=== PATIENT | male | born 1970 | race Caucasian/White ===

== ENCOUNTER 2019-11-22 22:16 | Emergency (ER) | payer OTHER ==
--- OUTSIDE RECORDS SUMMARY | 2019-11-22 22:17 | XMS REPORT ---
:1970 [facility] Address [address] [place] [address] Dr. Ignacio [address] [place] [id number] Care Team Providers Name Role Phone Unavailable Unavailable Unavailable Problems This patient has no known problems. Allergies, Adverse Reactions, Alerts This patient has no known allergies or adverse reactions. Medications This patient has no known medications.
[2019-11-22] MEDS ORDERED: NA CHLORIDE 0.9% 2,000 ML ONE (23:01)
[2019-11-22] MEDS ORDERED: ONDANSETRON 4 MG/2 ML VIAL ONE ×2 (23:02→23:32)
[2019-11-22 23:34] LABS: Blood Gas Oxyhemoglobin 87.1 % (94-97); Blood O2 Saturation 88.4 % (92-98.5)
[2019-11-22 23:44] LABS: Absolute Lymphocytes (CBC) 1.1 K/uL (0.7-4.9); Basophils % 0.4 % (0-1.3); Hematocrit 39.5 % (39.6-49.0); Lymphocytes % 9.5 % (15.3-44.8); MPV 8.7 fL (7.6-11.3)
[2019-11-22 23:55] LABS: Albumin 4.3 g/dL (3.4-5.0); Bilirubin Total 0.4 mg/dL (0.2-1.0); Protein, Total 8.5 g/dL (6.4-8.2)
[2019-11-23] MEDS ORDERED: INSULIN -REGULAR HUMAN 50 UNIT/0.5 ML ML ONE ×2 (00:02→03:57)
[2019-11-23] MEDS ORDERED: METOCLOPRAMIDE 10 MG/2mL INJ ONE (00:19)
[2019-11-23 00:32] LABS: Blood Morphology Comment NOT SEEN (NOT SEEN); Platelet Estimate ADEQ
[2019-11-23] MEDS ORDERED: NA CHLORIDE 0.9% 1,000 ML ONE (01:32)
[2019-11-23 02:22] LABS: Urine Blood 1+ (NEG); Urine Glucose 2+ (NEG); Urine Protein 2+ (NEG); Urine Specific Gravity 1.015 (1.005-1.030); Urine pH 5.5 (5.0-7.0)
[2019-11-23] MEDS ORDERED: PROMETHAZINE INJ 25 MG/ML AMP ONE (02:32)
--- NOTE | 2019-11-23 03:55 | ER ---
Nurse's Notes [facility] Name: Zaid Chiang Age: 49 yrs Sex: Male : 1970 Arrival Date: 11/22/2019 Time: 22:17 Bed 4 Private MD: Diagnosis: Hyperglycemia;Nausea and vomiting;Dehydration Presentation: 11/22 22:35 Presenting complaint: Patient states: he felt the same symptoms starting New Years day wh thinking it was just a hangover, it got better. Today around noon started to feel nauseated again and started vomiting. BS at home was 314, BS checked at ER 405. Transition of care: patient was not received from another setting of care. Onset of symptoms was November 22, 2019. Risk Assessment: Do you want to hurt yourself or someone else? Patient reports no desire to harm self or others. Initial Sepsis Screen: Does the patient meet any 2 criteria? No. Patient's initial sepsis screen is negative. Does the patient have a suspected source of infection? No. Patient's initial sepsis screen is negative. Care prior to arrival: None. 22:35 Method Of Arrival: Wheelchair 22:35 Acuity: KATHLEEN 3 Historical: - Allergies: 22:40 No Known Allergies; - Home Meds: 22:40 glimepiride 4 mg Oral tab 1 tab twice a day [Active]; lisinopril 5 mg Oral tab 1 tab wh twice a day [Active]; metformin 250 mg Oral tab 1 tab 2 times per day [Active]; gabapentin 100 mg oral cap 1 caps twice a day [Active]; - PMHx: 22:40 Diabetes - NIDDM; Hypertension; - PSHx: 22:40 Foot Surgery; - Immunization history:: Adult Immunizations up to date. - Social history:: Smoking status: Patient/guardian denies using tobacco. - Ebola Screening: : Patient negative for fever greater than or equal to 101.5 degrees Fahrenheit, and additional compatible Ebola Virus Disease symptoms Patient denies exposure to infectious person. Screenin:40 Abuse screen: Denies threats or abuse. Denies injuries from another. Nutritional screening: No deficits noted. Tuberculosis screening: No symptoms or risk factors identified. Fall Risk None identified. Assessment: 22:44 General: Appears in no apparent distress. Behavior is calm, cooperative, appropriate wh for age. Pain: Denies pain. Neuro: Level of Consciousness is awake, alert, obeys commands, Oriented to person, place, time, situation, Appropriate for age. Cardiovascular: Heart tones S1 S2. Respiratory: Airway is patent Respiratory effort is even, unlabored, Respiratory pattern is regular, symmetrical, Breath sounds are clear bilaterally. GI: Abdomen is flat, non-distended, Reports nausea, vomiting. : No signs and/or symptoms were reported regarding the genitourinary system. EENT: No signs and/or symptoms were reported regarding the EENT system. Derm: Skin is intact, is healthy with good turgor, Skin is pink, warm \T\ dry. normal. Musculoskeletal: Circulation, motion, and sensation intact. 11/23 00:05 Reassessment: Patient appears in no apparent distress at this time. No changes from previously documented assessment. Patient and/or family updated on plan of care and expected duration. Pain level reassessed. Patient is alert, oriented x 3, equal unlabored respirations, skin warm/dry/pink. Pr still nauseated notified provider. 01:24 Reassessment: Patient appears in no apparent distress at this time. No changes from previously documented assessment. Patient and/or family updated on plan of care and expected duration. Pain level reassessed. Patient is alert, oriented x 3, equal unlabored respirations, skin warm/dry/pink. 02:37 Reassessment: Patient appears in no apparent distress at this time. No changes from previously documented assessment. Patient and/or family updated on plan of care and expected duration. Pain level reassessed. Patient is alert, oriented x 3, equal unlabored respirations, skin warm/dry/pink. updated on POC awaiting official reading of CT Scan. 04:00 Reassessment: Patient appears in no apparent distress at this time. No changes from previously documented assessment. Patient and/or family updated on plan of care and expected duration. Pain level reassessed. Patient is alert, oriented x 3, equal unlabored respirations, skin warm/dry/pink. Patient states feeling better. Patient states symptoms have improved. Vital Signs: 11/22 22:36 BP 133 / 90; Pulse 114; Resp 19; Temp 98.2(O); Pulse Ox 100% on R/A; oe 22:51 Weight 99.79 kg; Height 5 ft. 9 in. (175.26 cm); 11/23 00:00 BP 162 / 109; Pulse 113; Resp 18; Pulse Ox 100% on R/A; 01:15 BP 124 / 74; Pulse 101; Resp 18; Pulse Ox 97% ; 02:38 BP 161 / 89; Pulse 115; Resp 18; Pulse Ox 98% on R/A; 04:00 BP 129 / 74; Pulse 96; Resp 18; Pulse Ox 96% on R/A; 11/22 22:51 Body Mass Index 32.49 (99.79 kg, 175.26 cm) ED Course: 11/22 22:17 Patient arrived in ED. ds1 22:24 Abram Gillette is Primary Nurse. 22:37 Sadi [place] MD is Attending Physician. [facility] 22:37 Triage completed. 22:40 Patient has correct armband on for positive identification. Placed in gown. Bed in low wh position. Call light in reach. Side rails up X 1. bag machine helper on. Pulse ox on. NIBP on. 22:40 Inserted saline lock: 20 gauge in right antecubital area, using aseptic technique. Blood collected. 22:44 Arm band placed on left wrist. 23:25 CXR XRAY In Process Unspecified. EDMS 11/23 02:30 CT Abd/Pelvis - Without Contrast In Process Unspecified. EDMS 04:13 No provider procedures requiring assistance completed. IV discontinued, intact, bleeding controlled, No redness/swelling at site. Administered Medications: 11/22 23:05 Drug: NS 0.9% (20 ml/kg) 20 ml/kg Route: IV; Rate: 1 bolus; Site: right antecubital; 11/23 01:22 Follow up: Response: No adverse reaction; IV Status: Completed infusion 11/22 23:05 Drug: Zofran 4 mg Route: IVP; Site: right antecubital; 11/23 01:22 Follow up: Response: No adverse reaction; Nausea unchanged 11/22 23:31 Drug: Zofran 4 mg Route: IVP; Site: right antecubital; 11/23 01:22 Follow up: Response: No adverse reaction; Nausea unchanged 11/22 23:50 Drug: Insulin Regular Human 10 units {Co-Signature: aa1 (Josefina Morley RN).} Route: Sub-Q; Site: left lower abdomen; 11/23 01:23 Follow up: Response: No adverse reaction; Temperature is decreased 00:35 Drug: Reglan 10 mg Route: IVP; Site: right antecubital; 01:23 Follow up: Response: No adverse reaction; Nausea is decreased 01:34 Drug: NS 0.9% 1000 ml Route: IV; Rate: 1 bolus; Site: right antecubital; 04:00 Follow up: Response: No adverse reaction; IV Status: Completed infusion 02:35 Drug: Phenergan 25 mg Route: IVP; Site: right antecubital; 03:10 Follow up: Response: No adverse reaction; Nausea is decreased 04:00 Drug: Insulin Regular Human 10 units {Co-Signature: aa1 (Josefina Morley RN).} Route: Sub-Q; Site: right lower abdomen; 04:12 Follow up: Response: No adverse reaction Outcome: 03:53 Discharge ordered by . ps1 04:13 Discharged to home ambulatory, with family. 04:13 Condition: stable 04:13 Discharge instructions given to patient, family, Instructed on discharge instructions, follow up and referral plans. medication usage, POC Demonstrated understanding of instructions, follow-up care, medications, POC Prescriptions given X 1. 04:13 Patient left the ED. Signatures: Dispatcher [employer] EDNM Zimmer Sita dsLeandro Jimenes Winsy Sadi [place] MD MD ps1 Josefina [place] RN aa1 Corrections: (The following items were deleted from the chart) 02:38 00:05 Reassessment: Patient appears in no apparent distress at this time. No changes wh from previously documented assessment. Patient and/or family updated on plan of care and expected duration. Pain level reassessed. Patient is alert, oriented x 3, equal unlabored respirations, skin warm/dry/pink. wh
--- NOTE | 2019-11-23 03:56 | EDPHYS ---
Physician Documentation [facility] Name: Zaid Chiang Age: 49 yrs Sex: Male : 1970 Arrival Date: 11/22/2019 Time: 22:17 Bed 4 Private MD: ED Physician Sadi [place] HPI: 11/23 00:20 This 49 yrs old Male presents to ER via Wheelchair with complaints of High ps1 Blood Sugar. 00:20 patient has not felt well after ANDRES. Thought he was hung over. Blood sugar abnormal ps1 today > 300. Has associated NV. Takes metformin and glimepride. Has not been sick otherwise. Has streaking blood from retching. Does not attest to abdominal pain. No fever. . Historical: - Allergies: 11/22 22:40 No Known Allergies; - Home Meds: 22:40 glimepiride 4 mg Oral tab 1 tab twice a day [Active]; lisinopril 5 mg Oral tab 1 tab wh twice a day [Active]; metformin 250 mg Oral tab 1 tab 2 times per day [Active]; gabapentin 100 mg oral cap 1 caps twice a day [Active]; - PMHx: 22:40 Diabetes - NIDDM; Hypertension; - PSHx: 22:40 Foot Surgery; - Immunization history:: Adult Immunizations up to date. - Social history:: Smoking status: Patient/guardian denies using tobacco. - Ebola Screening: : Patient negative for fever greater than or equal to 101.5 degrees Fahrenheit, and additional compatible Ebola Virus Disease symptoms Patient denies exposure to infectious person. ROS: 11/23 00:20 Constitutional: Negative for fever, chills, and weight loss, Eyes: Negative for injury, ps1 pain, redness, and discharge, Cardiovascular: Negative for chest pain, palpitations, and edema, Respiratory: Negative for shortness of breath, cough, wheezing, and pleuritic chest pain, MS/Extremity: Negative for injury and deformity, Skin: Negative for injury, rash, and discoloration, Neuro: Negative for headache, weakness, numbness, tingling, and seizure. Abdomen/GI: Positive for nausea and vomiting. Exam: 00:26 Constitutional: This is a well developed, well nourished patient who is awake, alert, ps1 and in no acute distress. Head/Face: Normocephalic, atraumatic. Eyes: Pupils equal round and reactive to light, extra-ocular motions intact. Lids and lashes normal. Conjunctiva and sclera are non-icteric and not injected. Chest/axilla: Normal chest wall appearance and motion. Nontender with no deformity. No lesions are appreciated. Respiratory: Lungs have equal breath sounds bilaterally, clear to auscultation and percussion. No rales, rhonchi or wheezes noted. No increased work of breathing, no retractions or nasal flaring. Abdomen/GI: Soft, non-tender, with normal bowel sounds. No distension or tympany. No guarding or rebound. No evidence of tenderness throughout. Skin: Warm, dry with normal turgor. Normal color with no rashes, no lesions, and no evidence of cellulitis. MS/ Extremity: Pulses equal, no cyanosis. Neurovascular intact. Full, normal range of motion. Neuro: Awake and alert, GCS 15, oriented to person, place, time, and situation. Cranial nerves II-XII grossly intact. Sensory grossly intact. 00:26 Cardiovascular: Rate: tachycardic, Rhythm: regular, Pulses: no pulse deficits are appreciated. Vital Signs: 11/22 22:36 BP 133 / 90; Pulse 114; Resp 19; Temp 98.2(O); Pulse Ox 100% on R/A; oe 22:51 Weight 99.79 kg; Height 5 ft. 9 in. (175.26 cm); 11/23 00:00 BP 162 / 109; Pulse 113; Resp 18; Pulse Ox 100% on R/A; 01:15 BP 124 / 74; Pulse 101; Resp 18; Pulse Ox 97% ; wh 02:38 BP 161 / 89; Pulse 115; Resp 18; Pulse Ox 98% on R/A; wh 04:00 BP 129 / 74; Pulse 96; Resp 18; Pulse Ox 96% on R/A; 11/22 22:51 Body Mass Index 32.49 (99.79 kg, 175.26 cm) wh MDM: 11/22 23:56 Patient medically screened. ps1 11/23 03:54 Data reviewed: vital signs, nurses notes, lab test result(s), radiologic studies, and ps1 as a result, I will discharge patient. Counseling: I had a detailed discussion with the patient and/or guardian regarding: the historical points, exam findings, and any diagnostic results supporting the discharge/admit diagnosis, lab results, radiology results, the need for outpatient follow up, to return to the emergency department if symptoms worsen or persist or if there are any questions or concerns that arise at home. Response to treatment: the patient's symptoms have markedly improved after treatment, patient is well hydrated. 11/22 22:40 Order name: Glucose, Ancillary Testing; Complete Time: 23:55 EDMS 11/22 22:50 Order name: CBC with Diff; Complete Time: 00:37 ps1 11/22 22:50 Order name: CMP; Complete Time: 23:57 ps1 11/22 22:50 Order name: Flu; Complete Time: 00:18 ps1 11/22 22:50 Order name: ABG; Complete Time: 23:55 ps1 11/22 23:47 Order name: Manual Differential; Complete Time: 00:37 EDMS 11/22 22:50 Order name: CXR XRAY [facility] 11/23 00:52 Order name: Urine Dipstick--Ancillary (enter results); Complete Time: 02:23 cm6 11/23 01:28 Order name: Glucose, Ancillary Testing; Complete Time: 01:38 EDMS 11/23 01:44 Order name: CT Abd/Pelvis - Without Contrast [facility] 11/23 03:05 Order name: BMP; Complete Time: 03:49 ps1 11/22 22:50 Order name: Urine Dipstick-Ancillary (obtain specimen); Complete Time: 01:25 ps1 Administered Medications: 11/22 23:05 Drug: NS 0.9% (20 ml/kg) 20 ml/kg Route: IV; Rate: 1 bolus; Site: right antecubital; 11/23 01:22 Follow up: Response: No adverse reaction; IV Status: Completed infusion 11/22 23:05 Drug: Zofran 4 mg Route: IVP; Site: right antecubital; 11/23 01:22 Follow up: Response: No adverse reaction; Nausea unchanged 11/22 23:31 Drug: Zofran 4 mg Route: IVP; Site: right antecubital; 11/23 01:22 Follow up: Response: No adverse reaction; Nausea unchanged 11/22 23:50 Drug: Insulin Regular Human 10 units {Co-Signature: aa1 (Josefina Morley RN).} Route: Sub-Q; Site: left lower abdomen; 11/23 01:23 Follow up: Response: No adverse reaction; Temperature is decreased 00:35 Drug: Reglan 10 mg Route: IVP; Site: right antecubital; 01:23 Follow up: Response: No adverse reaction; Nausea is decreased 01:34 Drug: NS 0.9% 1000 ml Route: IV; Rate: 1 bolus; Site: right antecubital; 04:00 Follow up: Response: No adverse reaction; IV Status: Completed infusion 02:35 Drug: Phenergan 25 mg Route: IVP; Site: right antecubital; 03:10 Follow up: Response: No adverse reaction; Nausea is decreased 04:00 Drug: Insulin Regular Human 10 units {Co-Signature: aa1 (Josefina Morley RN).} Route: Sub-Q; Site: right lower abdomen; 04:12 Follow up: Response: No adverse reaction Disposition: 11/23/19 03:53 Discharged to Home. Impression: Hyperglycemia, Nausea and vomiting, Dehydration. - Condition is Stable. - Discharge Instructions: Hyperglycemia. - Prescriptions for Zofran 4 mg Oral Tablet - take 1 tablet by ORAL route every 12 hours As needed; 20 tablet. - Medication Reconciliation Form, Thank You Letter, Antibiotic Education, Prescription Opioid Use form. - Follow up: Emergency Department; When: As needed; Reason: Fever > 102 F, Worsening of condition. Follow up: Private Physician; When: 48 Hours; Reason: Further diagnostic work-up, Recheck today's complaints, Continuance of care, Re-evaluation by your physician. - Problem is new. - Symptoms have improved. Signatures: Dispatcher [employer] [facility] Abram [place] Sadi [place] MD MD ps1 Josefina Morley RN aa1 Corrections: (The following items were deleted from the chart) 03:23 01:36 GLUCOSE+C.LAB.BRZ ordered. [facility] 04:13 03:53 11/23/2019 03:53 Discharged to Home. Impression: Hyperglycemia; Nausea and wh vomiting; Dehydration. Condition is Stable. Forms are Medication Reconciliation Form, Thank You Letter, Antibiotic Education, Prescription Opioid Use. Follow up: Emergency Department; When: As needed; Reason: Fever > 102 F, Worsening of condition. Follow up: Private Physician; When: 48 Hours; Reason: Further diagnostic work-up, Recheck today's complaints, Continuance of care, Re-evaluation by your physician. Problem is new. Symptoms have improved. ps1
[2019-11-23 04:25] VITALS: TEMP 98.2
[2019-11-23 04:34] VITALS: BP 129/74; O2SAT 96
--- NOTE | 2019-11-23 11:45 | RAD REPORT ---
EXAM DESCRIPTION: RAD - Chest Single View - 11/22/2019 11:25 pm CLINICAL HISTORY: COUGH Chest pain. COMPARISON: No comparisons FINDINGS: Portable technique limits examination quality. The lungs are grossly clear. The heart is normal in size. No displaced fractures. IMPRESSION: No acute intrathoracic process suspected.
--- NOTE | 2019-11-24 12:07 | RAD REPORT ---
EXAM DESCRIPTION: CT Abdomen and Pelvis Without Intravenous Contrast CLINICAL HISTORY: The patient is 49 years old and is Male; ABD PAIN TECHNIQUE: Axial computed tomography images of the abdomen and pelvis without intravenous contrast. Sagittal and coronal reformatted images were created and reviewed. This CT exam was performed usi ng one or more of the following dose reduction techniques: automated exposure control, adjustment o f the mA and/or kV according to patient size, and/or use of iterative reconstruction technique. COMPARISON: No relevant prior studies available. FINDINGS: LUNG BASES: Unremarkable. No mass. No consolidation. ABDOMEN: LIVER: Homogeneous without focal mass. GALLBLADDER AND BILE DUCTS: No calcified stones. No ductal dilation. PANCREAS: Mild fatty infiltration of the pancreas is present. No ductal dilation. SPLEEN: Unremarkable. ADRENALS: Unremarkable. No mass. KIDNEYS AND URETERS: No obstructing stones. No hydronephrosis. No perinephric fluid. STOMACH AND BOWEL: The stomach is well distended with fluid and food contents. The small bowel i s normal in caliber. A moderate amount of stool is present throughout the colon. There is no mucosal thickening or evidence of bowel obstruction. PELVIS: APPENDIX: The appendix is normal in caliber without surrounding inflammation. BLADDER: Unremarkable. No stones. REPRODUCTIVE: Unremarkable as visualized. ABDOMEN and PELVIS: INTRAPERITONEAL SPACE: Unremarkable. No free air. No significant fluid collection. BONES/JOINTS: No acute fracture. SOFT TISSUES: There are small bilateral fat containing inguinal hernias. VASCULATURE: Unremarkable. No abdominal aortic aneurysm. LYMPH NODES: Unremarkable. No enlarged lymph nodes. IMPRESSION: No acute findings on this noncontrasted CT of the abdomen and pelvis to explain the neymar ent's symptoms. Electronically signed by: Chasidy Klein MD 11/23/2019 2:59 AM OIL PIPE INSPECTOR Due to temporary technical issues with the PACS/Fluency reporting system, reports are being signed by the in house radiologist as a courtesy to ensure prompt reporting. The interpreting radiologist is teressa farrellly responsible for the content of the report.
== END 2019-11-23 04:13 | disposition home or self-care (01) ==
LOC: ER 22:16
DX: E11.65 Type 2 diabetes mellitus with hyperglycemia (principal); E86.0 Dehydration; I10 Essential (primary) hypertension
CPT/HCPCS: 96361; 85025; 80048; 36415; 82947 ×2; 81003; 80053; 87804 ×2; 74176; 71045; 82805; 96375; 96372; 96374; 99284; J2765; J2550; J7030 ×2; J2405 ×2

== ENCOUNTER 2020-02-03 08:15 | Emergency (ER) | payer OTHER ==
--- OUTSIDE RECORDS SUMMARY | 2020-02-03 08:26 | XMS REPORT ---
:1970 [facility] Address [address] [place] [address] Dr. Ignacio [address] [place] [id number] Care Team Providers Name Role Phone Unavailable Unavailable Unavailable Problems This patient has no known problems. Allergies, Adverse Reactions, Alerts This patient has no known allergies or adverse reactions. Medications This patient has no known medications.
--- OUTSIDE RECORDS SUMMARY | 2020-02-03 08:27 | XMS REPORT | Summary of Care ---
:1970 Author Organization [facility] Address [address] [place] [address] Care Team Providers Name Role Phone MarNevaJosefinaShar Primary Care Provider Reason for Referral MRI/CAT Scan (STAT) Status Reason Specialty Diagnoses / Referred By Referred To Procedures Contact Contact New Request Diagnostic Diagnoses Non-intractable vomiting with nausea, unspecified vomiting type Domo Best, Radiology Procedures CT Abdomen/Pelvis W/O Contrast PRESCHOOL ASSISTANT DIRECTOR [address] [place] [phone] Reason for Visit Reason Comments Dizziness Auth/Cert Status Reason Specialty Diagnoses / Referred By Referred To Procedures Contact Contact Emergency Medicine Diagnoses high sugar, dizzy [facility] Emergency Dept [address] [place] [address] [place] [address] Encounter Details Date Type Department Care Team Description 02/02/2020 Emergency ADC-Emergency Domo Best, PRESCHOOL ASSISTANT DIRECTOR Non-intractable Department [address] [place] [address]. vomiting with nausea, [address] [place] [address] [place], [place] unspecified [place], [place] [phone] type (Primary Dx) [phone] Allergies No Known Allergiesdocumented as of this encounter (statuses as of 02/02/2020) Medications Medication Sig Dispensed Refills Start Date End Date Status cyclobenzaprine 5 mg Take 1 tablet by 30 tablet 0 04/07/2018 Active tablet mouth 3 (three) times daily. traMADOL (ULTRAM) 50 Take 1 tablet by 20 tablet 0 04/07/2018 Active mg tablet mouth every 6 (six) hours as needed for Pain (scale 4-6). glimepiride 4 mg Take 2 mg by 0 Active tablet mouth. pioglitazone 15 mg Take 15 mg by 0 Active tablet mouth daily. ondansetron (ZOFRAN Take 1 tablet by 12 tablet 0 02/02/2020 Active ODT) 4 mg mouth every 8 disintegrating (eight) hours as tabletIndications: needed for N/V Non-intractable alternating with vomiting with nausea, Promethazine. unspecified vomiting type proMETHazine 25 mg Take 1 tablet by 12 tablet 0 02/02/2020 02/14/2020 Active tabletIndications: mouth every 6 Non-intractable (six) hours as vomiting with nausea, needed for N/V unspecified vomiting alternating with type Ondansetron for up to 12 days. documented as of this encounter (statuses as of 02/02/2020) Active Problems Not on filedocumented as of this encounter (statuses as of 02/02/2020) Social History Tobacco Use Types Packs/Day Years Used Date Never Smoker Smokeless Tobacco: Never Used Alcohol Use Drinks/Week oz/Week Comments No Sex Assigned at Date Recorded Not on file Job Start Date Occupation Industry Not on file Not on file Not on file Travel History Travel Start Travel End No recent travel history available. documented as of this encounter Last Filed Vital Signs Vital Sign Reading Time Taken Comments Blood Pressure 147/81 02/02/2020 5:00 PM CDT Pulse 99 02/02/2020 5:16 PM CDT Temperature 37 C (98.6 F) 02/02/2020 1:51 PM CDT Respiratory Rate 11 02/02/2020 5:16 PM CDT Oxygen Saturation 96% 02/02/2020 5:16 PM CDT Inhaled Oxygen Concentration - - Weight 93 kg (205 lb) 02/02/2020 1:47 PM CDT Height - - Body Mass Index 30.27 02/14/2019 11:46 AM CDT documented in this encounter Discharge Instructions Domo Tran FNP - 02/02/2020DIAGNOSIS 1. Nausea/Vomiting NO LIFE-THREATENING FINDINGS ON TODAY'S EXAM. PROCEDURES IN THE ER TODAY: Labs, IV, fluids, medications MEDICATIONS ADMINISTERED IN THE ER TODAY: Zofran, Phenergan, fluid YOUR PRESCRIPTIONS AND [id number] MEDICATION RECOMMENDATIONS: Zofran Phenergan FOLLOW-UP RECOMMENDATIONS: RECOMMEND FOLLOW-UP WITH A PRIMARY CARE PROVIDER OR SPECIALIST IN 2-5 DAYS, ESPECIALLY IF NO IMPROVEMENT IN SYMPTOMS. MAY FOLLOW-UP WITH A PROVIDER OF YOUR CHOICE, SUCH : 1. A PHYSICIAN OF YOUR CHOICE 2. [facility], . LOCATIONS IN [facility] 3. [facility], [address], [place]; OR, IF YOU WISH TO FOLLOW-UP WITHIN THE [facility], MAY TRY THESE OPTIONS (CLINIC APPOINTMENTS AVAILABLE ON OXSF-PT-OTTO BASIS): 1. SCHEDULE AN APPOINTMENT ONLINE AT WWW.[facility] 2. OR CALL THE [facility] ACCESS CENTER AT OR 3. OR CALL YOUR [facility] PHYSICIAN'S OFFICE DIRECTLY IF YOU ARE ALREADY AN ESTABLISHED [facility] PATIENT. RETURN TO ER FOR WORSENING OF SYMPTOMS. Return to the ER for intractable vomiting, chest pain, shortness of breath, abdominal pain, or fevergreater than 100.4 Follow up with your PCP. AttachmentsThe following attachments cannot be sent through Care Everywhere.Vomiting (Adult) (Slovenian)Vomiting and Diarrhea, Nonspecific (Adult) (Slovenian)documented in this encounter Plan of Treatment Health Maintenance Due Date Last Done Comments DTaP,Tdap,and Td Vaccines (1 - 1989 Tdap) INFLUENZA VACCINE (#1) 2019 PNEUMOCOCCAL 0-64 YEARS COMBINED Aged Out No longer eligible based on SERIES patient's age to complete this topic documented as of this encounter Procedures Procedure Name Priority Date/Time Associated Diagnosis Comments CT ABDOMEN PELVIS WO STAT 02/02/2020 4:25 Non-intractable Results for this CONTRAST PM CDT vomiting with procedure are in nausea, unspecified the results vomiting type section. URINALYSIS STAT 02/02/2020 3:51 Non-intractable Results for this PM CDT vomiting with procedure are in nausea, unspecified the results vomiting type section. CBC WITH DIFFERENTIAL STAT 02/02/2020 2:12 Non-intractable Results for this PM CDT vomiting with procedure are in nausea, unspecified the results vomiting type section. CBC WITH DIFFERENTIAL Routine 02/02/2020 2:12 Non-intractable Results for this PM CDT vomiting with procedure are in nausea, unspecified the results vomiting type section. BASIC METABOLIC PANEL STAT 02/02/2020 2:12 Non-intractable Results for this (NA, K, CL, CO2, PM CDT vomiting with procedure are in GLUCOSE, BUN, nausea, unspecified the results CREATININE, CA) vomiting type section. HEPATIC FUNCTION STAT 02/02/2020 2:12 Non-intractable Results for this PANEL (40343) PM CDT vomiting with procedure are in (ALB,T.PRO,BILI nausea, unspecified the results T,BU/BC,ALT,AST,ALK vomiting type section. PHOS) TROPONIN I STAT 02/02/2020 2:12 Non-intractable Results for this PM CDT vomiting with procedure are in nausea, unspecified the results vomiting type section. LIPASE STAT 02/02/2020 2:12 Non-intractable Results for this PM CDT vomiting with procedure are in nausea, unspecified the results vomiting type section. EKG-12 LEAD STAT 02/02/2020 1:59 PM CDT POCT GLUCOSE Routine 02/02/2020 1:44 Results for this (AUTOMATED) PM CDT procedure are in the results section. NOTICE OF PRIVACY Routine 02/02/2020 1:32 PRACTICES PM CDT CONSENT/REFUSAL FOR Routine 02/02/2020 1:31 DIAGNOSIS AND PM CDT TREATMENT documented in this encounter Results CT Abdomen/Pelvis W/O Contrast (02/02/2020 4:25 PM CDT) Specimen Impressions Performed At 1. Right upper renal pole exophytic 1.7 cm cystic lesion that measures PACS/VR/DOSE slightly higher than expected for simple cyst. Findings may represent proteinaceous or hemorrhagic cyst. This could be confirmed with multiphasic CT or MRI. 2. No hydronephrosis or urinary system calculi. 3. Circumferential urinary bladder wall thickening out of proportion to degree of distention. Correlate with UA to exclude possibility of cystitis and/or UTI. 4. Small sliding-type hiatal hernia. 5. Technically indeterminate hypoattenuating lesion measuring 1.0 cm near splenic hilum, probably benign in the absence of history of malignancy. Comparison to priors would be helpful. Narrative Performed At CT abdomen and pelvis without contrast PACS/VR/DOSE REASON FOR STUDY: Nausea, vomiting COMPARISON: None available. TECHNIQUE: Unenhanced multidetector axial CT images from lung bases through pelvic inlet. As requested, no IV contrast was used. Coronal and sagittal MPR images also generated. INTRAVENOUS CONTRAST ADMINISTRATION: None. DOSE REPORT (Total DLP mGy*cm): 513. FINDINGS: Limited evaluation of abdominal and pelvic organs due to lack of intravenous contrast. Lower chest: Within normal limits. ABDOMEN AND PELVIS Liver: No focal hepatic lesions within limits of unenhanced technique. Biliary Tract/GB: Physiologically distended gallbladder without radiopaque cholelithiasis. No pericholecystic free fluid. Spleen: Technically indeterminate 1.0 cm hypoattenuating lesion near the splenic hilum, probably benign in the absence of history of malignancy. Pancreas: No pancreatic ductal dilatation. Diffuse fatty atrophy. Adrenals: Within normal limits. Kidneys: Right upper renal pole contains a 1.7 cm exophytic lesion measuring approximately 20 Hounsfield units (3:62). No hydronephrosis or nephrolithiasis. No hydroureter. No radiopaque calculi within bilateral ureters. Bowel: Small amount of mural fatty infiltration of the ascending colon. This can be seen with chronic inflammatory change or be normal. Remainder of the colon and small bowel appear unremarkable. Normal appendix. No abnormal bowel dilatation or wall thickening. Small sliding-type hiatal hernia. Peritoneum: Within normal limits. Vasculature: No appreciable atherosclerotic calcifications of the abdominal aorta. Prominent long segment circumferential atherosclerotic calcification within the proximal DISHA. Lymph Nodes: A few scattered periportal and retroperitoneal lymph nodes are thought to be reactive.. Pelvic Organs: Circumferential urinary bladder wall thickening that is slightly out of proportion to degree of distention. No radiopaque urinary bladder calculi. No pericholecystic stranding. Abdominal/Pelvic Wall: Bilateral fat-containing inguinal hernias, small.. BONES: Multilevel posttraumatic chronic deformities of posterior left ribs. No acute or aggressive osseous abnormality. Procedure Note [facility], Radiant Results Inft User - 02/02/2020 4:[address] abdomen and pelvis without contrast REASON FOR STUDY: Nausea, vomiting COMPARISON: None available. TECHNIQUE: Unenhanced multidetector axial CT images from lung bases through pelvic inlet. As requested, no IV contrast was used. Coronal and sagittal MPR images also generated. INTRAVENOUS CONTRAST ADMINISTRATION: None. DOSE REPORT (Total DLP mGy*cm): 513. FINDINGS: Limited evaluation of abdominal and pelvic organs due to lack of intravenous contrast. Lower chest: Within normal limits. ABDOMEN AND PELVIS Liver: No focal hepatic lesions within limits of unenhanced technique. Biliary Tract/GB: Physiologically distended gallbladder without radiopaque cholelithiasis. No pericholecystic free fluid. Spleen: Technically indeterminate 1.0 cm hypoattenuating lesion near the splenic hilum, probably benign in the absence of history of malignancy. Pancreas: No pancreatic ductal dilatation. Diffuse fatty atrophy. Adrenals: Within normal limits. Kidneys: Right upper renal pole contains a 1.7 cm exophytic lesion measuring approximately 20 Hounsfield units (3:62). No hydronephrosis or nephrolithiasis. No hydroureter. No radiopaque calculi within bilateral ureters. Bowel: Small amount of mural fatty infiltration of the ascending colon. This can be seen with chronic inflammatory change or be normal. Remainder of the colon and small bowel appear unremarkable. Normal appendix. No abnormal bowel dilatation or wall thickening. Small sliding-type hiatal hernia. Peritoneum: Within normal limits. Vasculature: No appreciable atherosclerotic calcifications of the abdominal aorta. Prominent long segment circumferential atherosclerotic calcification within the proximal DISHA. Lymph Nodes: A few scattered periportal and retroperitoneal lymph nodes are thought to be reactive.. Pelvic Organs: Circumferential urinary bladder wall thickening that is slightly out of proportion to degree of distention. No radiopaque urinary bladder calculi. No pericholecystic stranding. Abdominal/Pelvic Wall: Bilateral fat-containing inguinal hernias, small.. BONES: Multilevel posttraumatic chronic deformities of posterior left ribs. No acute or aggressive osseous abnormality. IMPRESSION 1. Right upper renal pole exophytic 1.7 cm cystic lesion that measures slightly higher than expected for simple cyst. Findings may represent proteinaceous or hemorrhagic cyst. This could be confirmed with multiphasic CT or MRI. 2. No hydronephrosis or urinary system calculi. 3. Circumferential urinary bladder wall thickening out of proportion to degree of distention. Correlate with UA to exclude possibility of cystitis and/or UTI. 4. Small sliding-type hiatal hernia. 5. Technically indeterminate hypoattenuating lesion measuring 1.0 cm near splenic hilum, probably benign in the absence of history of malignancy. Comparison to priors would be helpful. Performing Organization Address City/State/Zipcode Phone Number PACS/VR/DOSE Urinalysis (02/02/2020 3:51 PM CDT) APPEARANCE Clear Clear [facility] COLOR Yellow Yellow [facility] PH 5.0 4.8 - 8.0 [facility] SP GRAVITY 1.011 1.003 - 1.030 [facility] GLU U QUAL 150 mg/dL (A) Normal [facility] BLOOD Negative Negative [facility] KETONES 5 mg/dL (A) Negative [facility] PROTEIN 30 mg/dL (A) Negative [facility] UROBILIN Normal Normal [facility] BILIRUBIN Negative Negative [facility] NITRITE Negative Negative [facility] LEUK RANDY Negative Negative [facility] RBC/HPF <1 0 - 3 HPF [facility] WBC/HPF 1 0 - 5 HPF [facility] BACTERIA Negative Negative [facility] SQ EPITH <1 HPF [facility] Specimen Urine - URINE, CLEAN CATCH Performing Organization Address City/State/Zipcode Phone Number [facility] CLIA: [id number], [address] [place] [address] CBC WITH DIFFERENTIAL (02/02/2020 2:12 PM CDT) [facility] WBC 11.63 (H) 4.20 - 10.70 [facility] 10*3/L [facility] RBC 4.22 (L) 4.26 - 5.52 [facility] 10*6/L [facility] HGB 13.6 12.2 - 16.4 [facility] g/dL [facility] HCT 40.0 38.4 - 49.3 % [facility] MCV 94.8 81.7 - 95.6 fL [facility] MCH 32.2 26.1 - 32.7 pg [facility] MCHC 34.0 31.2 - 35.0 [facility] g/dL [facility] RDW-SD 42.5 38.5 - 51.6 fL [facility] RDW-CV 12.2 12.1 - 15.4 % [facility] PLT 306 150 - 328 [facility] 10*3/L [facility] MPV 9.9 9.8 - 13.0 fL [facility] NRBC/100 WBC 0.0 0.0 - 10.0 /100 [facility] WBCs [facility] NRBC x10^3 <0.01 10*3/L [facility] GRAN MAT (NEUT) % 79.5 % [facility] IMM GRAN % 0.30 % [facility] LYMPH % 13.5 % [facility] MONO % 5.8 % [facility] EOS % 0.6 % [facility] BASO % 0.3 % [facility] GRAN MAT x10^3(ANC) 9.23 (H) 1.99 - 6.95 [facility] 10*3/uL HOSPITAL LABORATORY IMM GRAN x10^3 0.04 0.00 - 0.06 [facility] 10*3/uL HOSPITAL LAB[facility]ORY LYMPH x10^3 1.57 1.09 - 3.23 [facility] 10*3/uL HOSPITAL LAB[facility]ORY MONO x10^3 0.68 0.36 - 1.02 [facility] 10*3/uL HOSPITAL LAB[facility]ORY EOS x10^3 0.07 0.06 - 0.53 [facility] 10*3/uL HOSPITAL LAB[facility]ORY BASO x10^3 0.04 0.01 - 0.09 [facility] 10*3/uL HOSPITAL LAB[facility]ORY Specimen Blood - VENOUS Performing Organization Address City/State/Zipcode Phone Number [facility] CLIA: [id number], [address] [place] [address] [phone] Troponin I (02/02/2020 2:12 PM CDT) TROPONIN I 0.009 <=0.034 ng/mL [facility] Specimen Blood - VENOUS Narrative Performed At Equal or Less than 0.034 ng/ml---Normal [facility] Note: Cardiac troponin begins to rise 3-4 hours after the onset of ischemia. Repeat in 4-6 hours if the sample was drawn within 3-4 hours of the onset of the symptom and found normal. Between 0.035 and 0.120 ng/mL--- Borderline. Questionable myocardial injury or necrosis Note: Serial measurement may be necessary to confirm or exclude the diagnosis of myocardial injury or necrosis; Clinical correlation (symptoms, EKGs, imaging studies, and others) required; Repeat in 4-6 hours if clinically indicated. Equal or Higher than 0.121 ng/mL---Abnormal. Myocardial Injury or Necrosis Likely Biotin has been reported to cause a negative bias, interpret results relative to patient's use of biotin. Performing Organization Address City/[facility] Phone Number [facility] CLIA: [id number], [address] [place] [address] [phone] LABORATORY [facility] Lipase Serum (02/02/2020 2:12 PM CDT) LIPASE 116 0 - 220 U/L [facility] Specimen Blood - VENOUS Performing Organization Address [facility] Phone Number [facility] CLIA: [id number], [address] [place] [address] LABORATORY [facility] Hepatic Function Panel (ALB, T.PRO, BILI T, BU/BC, ALT, AST, ALK PHOS) (2019 2:12 PM CDT) Pathologist [facility] TOTAL BILI 0.5 0.1 - 1.1 mg/dL [facility] BILI UNCON 0.2 0.1 - 1.1 mg/dL [facility] BILI CONJ 0.0 0.0 - 0.3 mg/dL [facility] T PROTEIN 8.0 6.3 - 8.2 g/dL [facility] ALBUMIN 4.6 3.5 - 5.0 g/dL [facility] ALK PHOS 54 34 - 122 U/L [facility] ALTv 22 5 - 50 U/L [facility] AST(SGOT) 27 13 - 40 U/L [facility] Specimen Blood - VENOUS Performing Organization Address [facility] Phone Number [facility] CLIA: [id number], [address] [place] [address] LABORATORY [facility] Basic Metabolic Panel (NA, K, CL, CO2, GLUCOSE, BUN, CREATININE, CA) (2019 2:12 PM CDT) NA 136 135 - 145 [facility] mmol/L HOSPITAL LABORATORY K 3.6 3.5 - 5.0 [facility] mmol/L [facility] CL 94 (L) 98 - 108 mmol/L [facility] CO2 TOTAL 31 23 - 31 mmol/L [facility] AGAP 11 2 - 16 [facility] BUN 34 (H) 7 - 23 mg/dL [facility] GLUCOSE 226 (H) 70 - 110 mg/dL [facility] CREATININE 1.71 (H) 0.60 - 1.25 [facility] mg/dL [facility] CALCIUM 9.0 8.6 - 10.6 [facility] mg/dL [facility] eGFR Calculation 42.8 mL/min/1.73m2 [facility] ([facility] [place] LAB[facility]ATORY [place]) eGFR Calculation 51.8 mL/min/1.73m2 [facility] () [facility] Specimen Blood - VENOUS Narrative Performed At Association of Glomerular Filtration Rate (GFR) [facility] and Staging of Kidney Disease* + + +- + | GFR (mL/min/1.73 m2) | With Kidney Damage | Without Kidney Damage + + +- + | >90 | Stage one | Normal + + +- + | 60-89 | Stage two | Decreased GFR + + +- + | 30-59 | Stage three | Stage three + + +- + | 15-29 | Stage four | Stage four + + +- + | <15 (or dialysis) | Stage five | Stage five + + +- + *Each stage assumes the associated GFR level has been in effect for at least three months. Stages 1 to 5, with or without kidney disease, indicate chronic kidney disease. Notes: Determination of stages one and two (with eGFR >59mL/min/1.73 m2) requires estimation of kidney damage for at least three months as defined by structural or functional abnormalities of the kidney, manifested by either: Pathological abnormalities or Markers of kidney damage (including abnormalities in the composition of the blood or urine or abnormalities in imaging tests). Performing Organization Address [facility]/Zipcode Phone Number [facility] CLIA: [id number], [address] [place], [place] [id number] LABORAT[address] POCT GLUCOSE (AUTOMATED) (02/02/2020 1:44 PM CDT) POCT GLU 246 (H) 70 - 110 mg/dL [facility] Specimen Blood Performing Organization Address [facility]/State/Zipcode Phone Number [facility] CLIA: [id number], [address] [place] [address] documented in this encounter Visit Diagnoses Diagnosis Non-intractable vomiting with nausea, unspecified vomiting type - Primary documented in this encounter Administered Medications Medication Order MAR Action Action Date Dose Rate Site NaCl 0.9% (NS) bolus New Bag 02/02/2020 2:11 PM CDT 1,000 mL 999 mL/hr infusion 1,000 mL at 999 mL/hr, 1,000 mL, IV Infusion, ONCE, 1 dose, 02/02/20 at 1400, SAURAV NaCl 0.9% (NS) bolus infusion New Bag 02/02/2020 4:44 PM CDT 1,000 mL 999 mL/hr 1,000 mL at 999 mL/hr, 1,000 mL, IV Infusion, ONCE, 1 dose, Sun02/02/20 at 1745, STAT ondansetron (ZOFRAN (PF)) injection 4 mg Given 02/02/2020 2:11 PM CDT 4 mg 4 mg, Slow IV Push, ONCE, 1 dose, Sun02/02/20 at 1500, SAURAV proMETHazine (PHENERGAN) 25 mg in NaCl 0.9% Given 02/02/2020 2:55 PM CDT 25 mg (NS) 50 mL piggyback 25 mg, IV Piggyback, ONCE, 1 dose, Sun02/02/20 at 1600, 50 mL documented in this encounter documented as of this encounter"
[2020-02-03] MEDS ORDERED: ONDANSETRON 4 MG/2 ML VIAL ONE ×2 (08:43→11:02)
[2020-02-03] MEDS ORDERED: NA CHLORIDE 0.9% 1,000 ML ONE (08:43)
[2020-02-03 09:01] LABS: Absolute Lymphocytes (CBC) 1.5 K/uL (0.7-4.9); Basophils % 0.2 % (0-1.3); Lymphocytes % 10.8 % (15.3-44.8); RBC Red Blood Cell Count 3.95 M/uL (4.33-5.43)
[2020-02-03 09:07] LABS: Urine Blood TRACE (NEG); Urine Glucose NEGATIVE (NEG); Urine Protein NEGATIVE (NEG); Urine Specific Gravity 1.025 (1.005-1.030); Urine pH 7.5 (5.0-7.0)
[2020-02-03 09:18] LABS: Potassium 4.1 mmol/L (3.5-5.1)
--- NOTE | 2020-02-03 10:36 | EDPHYS ---
Physician Documentation [facility] Name: Zaid Chiang Age: 49 yrs Sex: Male : 1970 Arrival Date: 02/03/2020 Time: 08:17 Bed 13 Private MD: ED Physician Pola Davenport HPI: 02/02 08:39 This 49 yrs old Male presents to ER via Ambulatory with complaints of nausea kb and vomiting. 08:39 The patient presents to the emergency department with nausea, vomiting. Onset: The kb symptoms/episode began/occurred 4 day(s) ago. Possible causes: unknown. The symptoms are aggravated by nothing. The symptoms are alleviated by nothing. Associated signs and symptoms: Pertinent positives: nausea, vomiting, Pertinent negatives: abdominal pain, anorexia, belching, constipation, diarrhea, dysuria, fever, flatulence, GI bleeding, hematuria. Severity of symptoms: At their worst the symptoms were moderate in the emergency department the symptoms are unchanged. The patient has not experienced similar symptoms in the past. The patient has been recently seen by a physician: the ER physician, out of Town, yesterday. Pt reports nausea and vomiting since Sunday. States he went to [place] ER yesterday and they did blood work and a CT, sent him home with zofran and phenergan, but he has not picked it up yet. States "I just got worried that I was vomiting again this morning so I came in.". Historical: - Allergies: 08:18 No Known Allergies; rb1 - Home Meds: 08:18 gabapentin 100 mg Oral cap 1 caps twice a day [Active]; glimepiride 4 mg Oral tab 1 tab rb1 twice a day [Active]; metformin 250 mg Oral tab 1 tab 2 times per day [Active]; lisinopril 5 mg Oral tab 1 tab twice a day [Active]; Trucility [Active]; - PMHx: 08:18 Diabetes - NIDDM; Hypertension; rb1 - PSHx: 08:18 Foot Surgery; rb1 - Immunization history:: Adult Immunizations up to date. - Social history:: Smoking status: Patient/guardian denies using. ROS: 09:48 Constitutional: Negative for fever, chills, and weight loss, ENT: Negative for injury, kb pain, and discharge, Neck: Negative for injury, pain, and swelling, Cardiovascular: Negative for chest pain, palpitations, and edema, Respiratory: Negative for shortness of breath, cough, wheezing, and pleuritic chest pain, Back: Negative for injury and pain, MS/Extremity: Negative for injury and deformity, Skin: Negative for injury, rash, and discoloration, Neuro: Negative for headache, weakness, numbness, tingling, and seizure. 09:48 Abdomen/GI: Positive for nausea and vomiting, Negative for abdominal pain, diarrhea, constipation, abdominal cramps, abdominal distension, anorexia. Exam: 09:48 Constitutional: This is a well developed, well nourished patient who is awake, alert, kb and in no acute distress. Head/Face: Normocephalic, atraumatic. ENT: Nares patent. No nasal discharge, no septal abnormalities noted. Tympanic membranes are normal and external auditory canals are clear. Oropharynx with no redness, swelling, or masses, exudates, or evidence of obstruction, uvula midline. Mucous membranes moist. Neck: Trachea midline, no thyromegaly or masses palpated, and no cervical lymphadenopathy. Supple, full range of motion without nuchal rigidity, or vertebral point tenderness. No Meningismus. Chest/axilla: Normal chest wall appearance and motion. Nontender with no deformity. No lesions are appreciated. Cardiovascular: Regular rate and rhythm with a normal S1 and S2. No gallops, murmurs, or rubs. Normal PMI, no JVD. No pulse deficits. Respiratory: Lungs have equal breath sounds bilaterally, clear to auscultation and percussion. No rales, rhonchi or wheezes noted. No increased work of breathing, no retractions or nasal flaring. Abdomen/GI: Soft, non-tender, with normal bowel sounds. No distension or tympany. No guarding or rebound. No evidence of tenderness throughout. Back: No spinal tenderness. No costovertebral tenderness. Full range of motion. Skin: Warm, dry with normal turgor. Normal color with no rashes, no lesions, and no evidence of cellulitis. MS/ Extremity: Pulses equal, no cyanosis. Neurovascular intact. Full, normal range of motion. Neuro: Awake and alert, GCS 15, oriented to person, place, time, and situation. Cranial nerves II-XII grossly intact. Motor strength 5/5 in all extremities. Sensory grossly intact. Cerebellar exam normal. Normal gait. Vital Signs: 08:18 BP 100 / 60; Pulse 114; Resp 17; Temp 98.4(O); Pulse Ox 97% on R/A; Weight 92.99 kg rb1 (R); Height 5 ft. 9 in. (175.26 cm) (R); Pain 0/10; 09:18 BP 131 / 77; Pulse 106; Resp 16; Pulse Ox 97% on R/A; rb1 10:13 BP 147 / 81; Pulse 102; Resp 17; Pulse Ox 97% on R/A; rb1 10:53 BP 119 / 77; Pulse 103; Resp 16; Pulse Ox 97% on R/A; rb1 08:18 Body Mass Index 30.27 (92.99 kg, 175.26 cm) rb1 MDM: 08:22 Patient medically screened. kb 08:55 Data reviewed: vital signs, nurses notes. Data reviewed: diagnostic data from outside facility, amylase and lipase, CBC, electrolytes, hepatic panel, radiologic studies, CT scan. Data interpreted: Pulse oximetry: on room air is 97 %. Interpretation: normal. 10:33 Counseling: I had a detailed discussion with the patient and/or guardian regarding: the kb historical points, exam findings, and any diagnostic results supporting the discharge/admit diagnosis, lab results, the need for outpatient follow up, a family practitioner, to return to the emergency department if symptoms worsen or persist or if there are any questions or concerns that arise at home. ED course: Pt tolerated PO. Educated to take zofran and phenergan that was prescribed yesterday as needed and to advance diet as tolerated. CT scan of abd report reviewed from yesterday, no infectious process reported. 02/02 08:26 Order name: Urine Dipstick--Ancillary (enter results); Complete Time: 09:11 bd 02/02 08:33 Order name: Basic Metabolic Panel; Complete Time: 09:24 kb 02/02 08:33 Order name: CBC with Diff; Complete Time: 09:11 kb 02/02 08:33 Order name: IV Saline Lock; Complete Time: 08:56 kb 02/02 08:33 Order name: Labs collected and sent; Complete Time: 08:57 kb 02/02 09:50 Order name: PO challenge; Complete Time: 10:53 kb Administered Medications: 08:52 Drug: Zofran (Ondansetron) 4 mg Route: IVP; Site: right antecubital; rb1 09:10 Follow up: Response: No adverse reaction; Nausea is decreased rb1 08:52 Drug: NS 0.9% 1000 ml Route: IV; Rate: 1000 ml; Site: right antecubital; rb1 11:00 Drug: Zofran (Ondansetron) 4 mg Route: IVP; Site: right antecubital; rb1 11:05 Follow up: Response: Medication administered at discharge. rb1 Disposition: 11:24 Co-signature as Attending Physician, Pola Davenport MD. rn Disposition: 02/03/20 10:35 Discharged to Home. Impression: Nausea and vomiting. - Condition is Stable. - Discharge Instructions: Nausea and Vomiting, Adult, [id number]. - Medication Reconciliation Form, Thank You Letter, Antibiotic Education, Prescription Opioid Use form. - Follow up: Emergency Department; When: As needed; Reason: Worsening of condition. Follow up: Private Physician; When: 2 - 3 days; Reason: Recheck today's complaints, Continuance of care, Re-evaluation by your physician. Signatures: Dispatcher [employer] EDRI Rafaela Jensen, BLOCKING MACHINE OPERATOR SECOND-C BLOCKING MACHINE OPERATOR SECOND-Ckb Pola Davenport MD MD rn Barber, Rebecca, RN RN rb1 Corrections: (The following items were deleted from the chart) 11:15 10:35 02/03/2020 10:35 Discharged to Home. Impression: Nausea and vomiting. Condition rb1 is Stable. Forms are Medication Reconciliation Form, Thank You Letter, Antibiotic Education, Prescription Opioid Use. Follow up: Emergency Department; When: As needed; Reason: Worsening of condition. Follow up: Private Physician; When: 2 - 3 days; Reason: Recheck today's complaints, Continuance of care, Re-evaluation by your physician. kb
--- NOTE | 2020-02-03 10:36 | ER ---
Nurse's Notes [facility] Name: Zaid Chiang Age: 49 yrs Sex: Male : 1970 Arrival Date: 02/03/2020 Time: 08:17 Bed 13 Private MD: Diagnosis: Nausea and vomiting Presentation: 02/02 08:18 Chief complaint: Patient states: Was in [place] ED yesterday for the same complaint. rb1 C/o nausea, and vomiting since Sunday. Denies fever and pain. Had an abdominal CT done yesterday and other tests and they all came back negative. 08:18 Method Of Arrival: Ambulatory rb1 08:18 Coronavirus screen: The patient has NOT traveled to a country currently being monitored rb1 by the [facility] within the last 14 days. The patient has NOT had contact with any known and/or suspected case of coronavirus. Ebola Screen: Patient negative for fever greater than or equal to 101.5 degrees Fahrenheit, and additional compatible Ebola Virus Disease symptoms. Initial Sepsis Screen: Does the patient meet any 2 criteria? No. Patient's initial sepsis screen is negative. Does the patient have a suspected source of infection? No. Patient's initial sepsis screen is negative. Risk Assessment: Do you want to hurt yourself or someone else? Patient reports no desire to harm self or others. 08:18 Acuity: KATHLEEN 3 rb1 08:18 Onset of symptoms was February 01, 2020. rb1 Triage Assessment: 08:18 General: Appears in no apparent distress. comfortable, Behavior is calm, cooperative, rb1 Denies fever. Pain: Denies pain. Neuro: Level of Consciousness is awake, alert, obeys commands, Oriented to person, place, time, situation. Cardiovascular: Capillary refill < 3 seconds is brisk in bilateral fingers. Respiratory: Airway is patent Respiratory effort is even, unlabored, Respiratory pattern is regular, symmetrical. GI: Reports nausea, vomiting, since Sunday. : No signs and/or symptoms were reported regarding the genitourinary system. Derm: Skin is pink, warm \T\ dry. Historical: - Allergies: 08:18 No Known Allergies; rb1 - Home Meds: 08:18 gabapentin 100 mg Oral cap 1 caps twice a day [Active]; glimepiride 4 mg Oral tab 1 tab rb1 twice a day [Active]; metformin 250 mg Oral tab 1 tab 2 times per day [Active]; lisinopril 5 mg Oral tab 1 tab twice a day [Active]; Trucility [Active]; - PMHx: 08:18 Diabetes - NIDDM; Hypertension; rb1 - PSHx: 08:18 Foot Surgery; rb1 - Immunization history:: Adult Immunizations up to date. - Social history:: Smoking status: Patient/guardian denies using. Screenin:18 Abuse screen: Denies threats or abuse. Nutritional screening: No deficits noted. rb1 Tuberculosis screening: No symptoms or risk factors identified. Fall Risk None identified. Assessment: 08:18 General: See triage assessment. rb1 09:18 Reassessment: Patient appears in no apparent distress at this time. No changes from rb1 previously documented assessment. 10:15 Reassessment: Patient appears in no apparent distress at this time. Pt. is on his rb1 telephone. 10:41 Reassessment: Patient appears in no apparent distress at this time. Patient and/or rb1 family updated on plan of care and expected duration. Pain level reassessed. Patient is alert, oriented x 3, equal unlabored respirations, skin warm/dry/pink. Pt. tolerated PO challenge well. Vital Signs: 08:18 BP 100 / 60; Pulse 114; Resp 17; Temp 98.4(O); Pulse Ox 97% on R/A; Weight 92.99 kg rb1 (R); Height 5 ft. 9 in. (175.26 cm) (R); Pain 0/10; 09:18 BP 131 / 77; Pulse 106; Resp 16; Pulse Ox 97% on R/A; rb1 10:13 BP 147 / 81; Pulse 102; Resp 17; Pulse Ox 97% on R/A; rb1 10:53 BP 119 / 77; Pulse 103; Resp 16; Pulse Ox 97% on R/A; rb1 08:18 Body Mass Index 30.27 (92.99 kg, 175.26 cm) [facility] ED Course: 08:17 Patient arrived in ED. rg4 08:18 Ania Farris, RN is Primary Nurse. rb1 08:18 Arm band placed on right wrist. rb1 08:18 Patient has correct armband on for positive identification. Bed in low position. Call [facility] light in reach. Side rails up X 1. Pulse ox on. NIBP on. 08:22 Rafaela Jensen FNP-C is [facility]. kb 08:22 Pola Davenport MD is Attending Physician. kb 08:29 Triage completed. rb1 08:52 Inserted saline lock: 22 gauge in right antecubital area, using aseptic technique. rb1 Blood collected. 11:05 No provider procedures requiring assistance completed. IV discontinued, intact, rb1 bleeding controlled, No redness/swelling at site. Pressure dressing applied. Administered Medications: 08:52 Drug: Zofran (Ondansetron) 4 mg Route: IVP; Site: right antecubital; rb1 09:10 Follow up: Response: No adverse reaction; Nausea is decreased rb1 08:52 Drug: NS 0.9% 1000 ml Route: IV; Rate: 1000 ml; Site: right antecubital; rb1 11:00 Drug: Zofran (Ondansetron) 4 mg Route: IVP; Site: right antecubital; rb1 11:05 Follow up: Response: Medication administered at discharge. rb1 Outcome: 10:35 Discharge ordered by MD. kb 11:05 Patient left the ED. rb1 11:05 Discharged to home ambulatory. rb1 11:05 Condition: stable 11:05 Discharge instructions given to patient, Instructed on discharge instructions, follow up and referral plans. Demonstrated understanding of instructions, follow-up care, Prescriptions given X none Signatures: Rafaela Jensen FNP-C FNP-Ckb Barber, Rebecca, RN RN rb1 Shreya Carrillo rg4 Corrections: (The following items were deleted from the chart) 08:36 08:18 Chief complaint: Patient states: Was in [place] ED yesterday for the same rb1 complaint. C/o nausea, and vomiting since Sunday. Denies fever and pain rb1 11:17 11:15 Patient left the ED. rb1 rb1
[2020-02-03 11:26] VITALS: TEMP 98.4; O2SAT 97
[2020-02-03 11:30] VITALS: BP 119/77
== END 2020-02-03 11:15 | disposition home or self-care (01) ==
LOC: ER 08:15
DX: R11.2 Nausea with vomiting, unspecified (principal); I10 Essential (primary) hypertension; E11.9 Type 2 diabetes mellitus without complications
CPT/HCPCS: 85025; 80048; 36415; 81003; 96374; 99284; J7030; J2405 ×2

== ENCOUNTER 2022-12-10 12:57 | Observation (INO) | payer OTHER ==
--- OUTSIDE RECORDS SUMMARY | 2022-12-10 13:03 | XMS REPORT | Continuity of Care Document ---
:1970 Author Organization [facility] t Address [address] [place] [address] Care Team Providers Name Role Phone DANIEL HERNANDEZCHANG Primary Care Physician Unavailable STAR QUINTERO Attending Clinician Unavailable Star Quintero MD Attending Clinician Only, Ang Db Test Attending Clinician Unavailable Shayla ALMOND PASTE MIXERErinn Meza Attending Clinician ERINN MCGUIRE Attending Clinician Unavailable Doctor Unassigned, [place] Attending Clinician Unavailable Lynn Attending Clinician Unavailable VONNIE MERRITT Attending Clinician Unavailable Elisabeth Krishnan Attending Clinician [facility] Attending Clinician Unavailable Kaitlin Anglin Attending Clinician CLOVIS NELSON Attending Clinician Unavailable Domo [place] Attending Clinician DOMO BEST Attending Clinician Unavailable STAR QUINTERO Admitting Clinician Unavailable Lynn Admitting Clinician Unavailable DOMO BEST Admitting Clinician Unavailable Payers Payer Name Policy Type Policy Number Effective Date Expiration Date [employer] [id number] 2015 00:00:00 [employer] [id number] 2011 00:00:00 Problems Condition Condition Condition Status Onset Resolution Last Treating Co mments Source Name Details Category Date Date Treatment Clinician Date Decreased Decreased Problem Active Josy jelani testostero Testostero 4-29 Fa waldo ne level ne Level 00:00: Practi c 00 e Type 2 Type 2 Problem Active [place] diabetes Diabetes 4-29 Family mellitus Mellitus 00:00: Practi c 00 e Neuropathy Neuropathy Problem Active [place] 4-29 Family 00:00: Practic 00 e Proteinuri Proteinuri Problem Active [place] a a 4-29 Family 00:00: Practic 00 e General General Problem Active [facility] finding of Finding of 6-23 Fa [facility] observatio Observatio 00:00: Pr actic n of n of 00 e patient Patient Clinical Clinical Problem Active [place] finding Finding 6-23 Family 00:00: Practic 00 e Neuropathy Neuropathy Problem Active [place] due to Due to 6-23 Family type 2 Type 2 00:00: Practic diabetes Diabetes 00 e mellitus Mellitus Disorder Disorder Problem Active [place] due to Due to 6-23 Family type 2 Type 2 00:00: Practic diabetes Diabetes 00 e mellitus Mellitus 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 Disorder 6-23 Family 00:00: Practic 00 e Hypertensi Hypertensi Problem Active [place] ve ve 6-23 Family disorder Disorder 00:00: Practi c 00 e No known No known Disease Unive rs active active ity of problems problems [facility] Allergies, Adverse Reactions, Alerts Allergy Allergy Status Severity Reaction(s) Onset Inactive Treating Comm ents Source Name Type Date Date Clinician NO KNOWN Drug Active Univers ALLERGIE Class ity of S [facility] Social History Social Habit Start Date Stop Date Quantity Comments Source Exposure to 2022-09-11 2022-09-21 Not sure [facility] SARS-CoV-2 00:00:00 17:24:00 [facility] (event) Branch Alcohol intake 2022-09-21 2022-09-21 Current University of 00:00:00 00:00:00 non-drinker of [facility] alcohol (finding) Branch Tobacco use and 2019-03-05 2019-03-05 Smokeless tobacco Un iversity of exposure 00:00:00 00:00:00 non-user [facility] Sex Ass[birth year] At [birth year] Universit y of 00:00:00 00:00:00 [facility] Smoking Status Start Date Stop Date Source Former Smoker [place] Family P isabel Never smoked tobacco [facility] Medications Ordered Filled Start Stop Current Ordering Indication Dosage Frequency Signature Comments Components Source Medication Medication Date Date Medication? Clinician (SIG) Name Name furosemide 2021-11- No 40mg 40 mg, IV U nivers (LASIX) 11-22 Push, ity of injection 01:45: 01:55 [place] 40 [place] :00 dose, On Medical [facility] Branch 09/21/22 at 2044, SAURAV nitroglycer 2021-11- No .4mg 0.4 mg, Un maye in 11-22 Sublingual ity of (NITROSTAT) 01:45: 01:55 , ONCE, 1 [place] sublingual 00 :00 dose, On Medic al tablet 0.4 [facility] 09/21/22 at 204, SARUAV hydralAZINE 2021-11- No 20mg 20 mg, Uni vers (APRESOLINE 11-22 Slow IV ity of ) injection 01:00: 00:53 [place] 20 mg 00 :00 ONCE, 1 Medical dose, On [facility] 09/21/22 at 2000, SAURAV labetaloL 2021-11- No 40mg 40 mg, Unive rs (NORMODYNE) 11-22 Slow IV ity of injection 00:45: 00:00 Push, [place] 40 mg 00 :00 ONCE, 1 Medical dose, On [facility] 09/21/22 at 1945, SAURAV chlordiazeP 2021-11- No 25mg 25 mg, Uni vers OXIDE 11-22 Oral, ity of (LIBRIUM) 00:15: 00:05 ONCE[place] capsule 25 00 :00 dose, On Medic al mg [facility] 09/21/22 at 1915, SAURAV hydroCHLORO 2021-11- No 25mg 25 mg, Uni vers thiazide 11-22 Oral, ity of (ESIDRIX) 00:00: 00:00 ONCE[place] tablet 25 00 :00 dose, On Medica l mg [facility] 09/21/22 at 1900, SAURAV labetaloL 2021-11 No 20mg 20 mg, Unive rs (NORMODYNE) 11-22 Slow IV ity of injection 00:00: 23:19 Push, [place] 20 mg 00 :00 ONCE, 1 Medical dose, On Branch [facility] 09/21/22 at 1900, Routine FENTanyl PF 2021-11 No 50ug 50 mcg, Un maye (SUBLIMAZE 11-21 Intravenou it y of (PF)) 23:30: 23:43 s, ONCE, 1 [place] injection 00 :00 dose, On Medica l 50 mcg [facility] Branch 09/21/22 at 1830, STAT ondansetron 2021-11 No 4mg 4 mg, Slow Univers (ZOFRAN 11-21 IV Push, ity of (PF)) 22:45: 22:42 ONCE, 1 [place] injection 4 00 :00 dose, On Medi mark mg [facility] Branch 09/21/22 at 1745, SAURAV ondansetron 2021-11 No 4mg 4 mg, Slow Univers (ZOFRAN 11-21 IV Push, ity of (PF)) 22:45: 22:42 ONCE, 1 [place] injection 4 00 :00 dose, On Medi mark mg [facility] Branch 09/21/22 at 1745, STAT morpHINE (4 2021-11 No 4mg 4 mg, Slow Univers mg/mL) 11-21 IV Push, ity of injection 4 22:45: 22:42 [place]CE[place] 1 [place] mg 00 :[place] dose, On Medical [place] Branch 09/21/22 at 1745, SAURAV NaCl 0.9% 2021-11 No 1000mL at 999 Uni vers (NS) bolus 11-21 mL/hr, ity of infusion 22:45: 23:36 1,000 mL, [place] as 1,000 mL 00 :00 IV Medical Infusion, Branch ONCE, 1 dose, On Shi 09/21/22 at 1745, SAURAV lisinopril 2021-11- No lisinopril Univers 10 mg 11-21 10 mg ity of tablet 21:03: 00:00 tablet [place] 33 :00 Medical Branch metoprolol 2021-11 Yes [id number] 25mg Take 1 U nivers tartrate 25 1-03 tablet by ity of mg tablet 00:00: mouth [place] 00 the Medical morning Branch and 1 tablet in the evening. acetaminoph 2021-11 Yes [id number] 500mg Take 1 Univers en (TYLENOL 1-03 tablet by ity of EXTRA 00:00: mouth [place] STRENGTH) 00 every 6 Medical 500 mg (six) Branch tablet hours as needed for Pain for up to 20 doses. famotidine 2021-11- Yes [id number] 20mg Take 1 Univers (PEPCID) 20 11-21 11-19 tablet by it y of mg tablet 00:00: 05:59 mouth in [place] as 00 :00 the Medical morning Branch and 1 tablet in the evening. Do all this for 30 doses. lisinopril 2020-0 Yes lisinopril U nivers 10 mg 4-06 10 mg ity of tablet 13:50: tablet [address] pregabalin 2020-0 Yes pregabalin U nivers 200 mg 4-06 200 mg ity of capsule 13:50: capsule [address] dulaglutide 2020-0 Yes Trulicity U nivers (TRULICITY) 4-06 1.5 mg/0.5 it y of 1.5 mg/0.5 13:50: mL [place] mL PnIj 01 subcutaneo Medica l pen Branch injector diazePAM 5 2020-0 Yes 5mg Take 5 mg Un maye mg tablet 4-06 by mouth. ity o f 13:50: [address] lisinopril 2020-0 Yes lisinopril U nivers 10 mg 4-06 10 mg ity of tablet 13:50: tablet [address] pregabalin 2020-0 Yes pregabalin U nivers 200 mg 4-06 200 mg ity of capsule 13:50: capsule [address] dulaglutide 2020-0 Yes Trulicity U nivers (TRULICITY) 4-06 1.5 mg/0.5 it y of 1.5 mg/0.5 13:50: mL [place] mL PnIj 01 subcutaneo Medica l pen Branch injector diazePAM 5 2020-0 Yes 5mg Take 5 mg [place] mg tablet 4-06 by mouth. ity o f 13:50: [address] glimepiride 2020-0 Yes 2mg Take 2 mg U nivers 4 mg tablet 4-06 by mouth. ity of 13:49: [address] pioglitazon 2020-0 Yes 15mg Take 15 mg Univers e 15 mg 4-06 by mouth ity of tablet 13:49: daily. [address] glimepiride 2020-0 Yes 2mg Take 2 mg U nivers 4 mg tablet 4-06 by mouth. ity of 13:49: [address] pioglitazon 2020-0 Yes 15mg Take 15 mg Univers e 15 mg 4-06 by mouth ity of tablet 13:49: daily. [address] lisinopril 2020-0 Yes lisinopril U nivers 10 mg 4-06 10 mg ity of tablet 08:50: tablet [address] pregabalin 2020-0 Yes pregabalin U nivers 200 mg 4-06 200 mg ity of capsule 08:50: capsule [address] dulaglutide 2020-0 Yes Trulicity U nivers (TRULICITY) 4-06 1.5 mg/0.5 it y of 1.5 mg/0.5 08:50: mL [place] mL PnIj 01 subcutaneo Medica l us pen Branch injector diazePAM 5 2020-0 Yes 5mg Take 5 mg [place] mg tablet 4-06 by mouth. ity o f 08:50: [address] lisinopril 2020-0 Yes lisinopril U nivers 10 mg 4-06 10 mg ity of tablet 08:50: tablet [address] pregabalin 2020-0 Yes pregabalin U nivers 200 mg 4-06 200 mg ity of capsule 08:50: capsule [address] dulaglutide 2020-0 Yes Trulicity U nivers (TRULICITY) 4-06 1.5 mg/0.5 it y of 1.5 mg/0.5 08:50: mL [place] mL PnIj 01 subcutaneo Medica l us pen Branch injector diazePAM 5 2020-0 Yes 5mg Take 5 mg [place] mg tablet 4-06 by mouth. ity o f 08:50: [address] pregabalin 2020-0 Yes pregabalin U nivers 200 mg 4-06 200 mg ity of capsule 08:50: capsule [address] dulaglutide 2020-0 Yes Trulicity U nivers (TRULICITY) 4-06 1.5 mg/0.5 it y of 1.5 mg/0.5 08:50: mL [facility] PnIj 01 subcutaneo Medica l us pen Branch injector diazePAM 5 2020-0 Yes 5mg Take 5 mg Un maye mg tablet 4-06 by mouth. ity o f 08:50: [address] glimepiride 2020-0 Yes 2mg Take 2 mg U nivers 4 mg tablet 4-06 by mouth. ity of 08:49: [address] pioglitazon 2020-0 Yes 15mg Take 15 mg Univers e 15 mg 4-06 by mouth ity of tablet 08:49: daily. [address] glimepiride 2020-0 Yes 2mg Take 2 mg U nivers 4 mg tablet 4-06 by mouth. ity of 08:49: [address] pioglitazon 2020-0 Yes 15mg Take 15 mg Univers e 15 mg 4-06 by mouth ity of tablet 08:49: daily. [address] glimepiride 2020-0 Yes 2mg Take 2 mg U nivers 4 mg tablet 4-06 by mouth. ity of 08:49: [address] pioglitazon 2020-0 Yes 15mg Take 15 mg Univers e 15 mg 4-06 by mouth ity of tablet 08:49: daily. [address] ondansetron 2019-0 2020- No [id number] 8mg Take 1 Univers 8 mg 4-05 04-09 tablet by ity of disintegrat 00:00: 04:59 [place] ing tablet 00 :00 every 8 Medica l (eight) Branch hours as needed for Nausea and Vomiting (N/V) for up to 3 days. ondansetron 2020-0 2020- No [id number] 8mg Take 1 Univers 8 mg 4-05 04-09 tablet by ity of disintegrat 00:00: 04:59 [place] ing tablet 00 :00 every 8 Medica l (eight) Branch hours as needed for Nausea and Vomiting (N/V) for up to 3 days. NaCl 0.9% 2019-2019- No 1000mL at 999 Uni vers (NS) bolus 3-16 03-16 mL/hr, ity of infusion 22:45: 23:00 1,000 mL, [place] 1,000 mL 00 :00 IV Medical Infusion, Branch ONCE, 1 dose, 02/02/20 at 1745, STAT proMETHazin 2020-0 2020- No 25mg 25 mg, IV Univers e 02-01 Piggyback, ity of (PHENERGAN) 21:00: 19:55 [place]CE[place] 25 mg in 00 :00 dose, Mon Medica l NaCl 0.9% 02/02/20 at Bran ch (NS) 50 mL 1600, 50 piggyback mL ondansetron 2020-0 2020- No 4mg 4 mg, Slow Univers (ZOFRAN 02-01 IV Push, ity of (PF)) 20:00: 19:11 ONCE, 1 [place] injection 4 00 :00 dose, Mon Med ical mg 02/02/20 at Branch 1500, SAURAV NaCl 0.9% 2020-0 2020- No 1000mL at 999 Uni vers (NS) bolus 02-01-16 mL/hr, ity of infusion 19:00: 21:43 1,000 mL, [place] as 1,000 mL 00 :00 IV Medical Infusion, Branch ONCE, 1 dose, [facility] 02/02/20 at 1400, SAURAV ondansetron 2020-0 Yes [id number] 4mg Take 1 Univers (ZOFRAN 3-16 tablet by ity of ODT) 4 mg 00:00: mouth [place] disintegrat 00 every 8 Medic al ing tablet (eight) Branch hours as needed for N/V alternatin g with Promethazi ne. proMETHazin 2020-0 2020- No [id number] 25mg Take 1 Univers e 25 mg 02-01 tablet by ity of tablet 00:00: 04:59 mouth [place] 00 :00 every 6 Medical (six) Branch hours as needed for N/V alternatin g with Ondansetro n for up to 12 days. glimepiride 2018-0 Yes 2mg Take 2 mg U nivers 4 mg tablet 3-29 by mouth. ity of 16:47: [place] 54 Medical Branch pioglitazon 2019-0 Yes 15mg Take 15 mg Univers e 15 mg 3-29 by mouth ity of tablet 16:47: daily. [place] 54 Medical Branch cyclobenzap 2018-0 Yes 5mg Take 1 Univ ers rine 5 mg 5-20 tablet by ity o f tablet 00:00: mouth 3 (three) Medical times Branch daily. traMADOL 2018-0 Yes 50mg Take 1 Univers (ULTRAM) 50 5-20 tablet by ity of mg tablet 00:00: mouth [place] 00 every 6 Medical (six) Branch hours as needed for Pain (scale 4-6). cyclobenzap 2018-0 Yes 5mg Take 1 Univ ers rine 5 mg 5-20 tablet by ity o f tablet 00:00: mouth (three) Medical times Branch daily. traMADOL 2018-0 Yes 50mg Take 1 Univers (ULTRAM) 50 5-20 tablet by ity of mg tablet 00:00: mouth [place] 00 every 6 Medical (six) Branch hours as needed for Pain (scale 4-6). cyclobenzap 2018-0 Yes 5mg Take 1 Univ ers rine 5 mg 5-20 tablet by ity o f tablet 00:00: mouth (three) Medical times Branch daily. traMADOL 2018-0 Yes 50mg Take 1 Univers (ULTRAM) 50 5-20 tablet by ity of mg tablet 00:00: mouth [place] 00 every 6 Medical (six) Branch hours as needed for Pain (scale 4-6). cyclobenzap 2018-0 Yes 5mg Take 1 Univ ers rine 5 mg 5-20 tablet by ity o f tablet 00:00: mouth 3 (three) Medical times Branch daily. traMADOL 2018-0 Yes 50mg Take 1 Univers (ULTRAM) 50 5-20 tablet by ity of mg tablet 00:00: mouth [place] 00 every 6 Medical (six) Branch hours as needed for Pain (scale 4-6). cyclobenzap 2018-0 Yes 5mg Take 1 Univ ers rine 5 mg 5-20 tablet by ity o f tablet 00:00: mouth (three) Medical times Branch daily. traMADOL 2018-0 Yes 50mg Take 1 Univers (ULTRAM) 50 5-20 tablet by ity of mg tablet 00:00: mouth [place] 00 every 6 Medical (six) Branch hours as needed for Pain (scale 4-6). cyclobenzap 2018-0 Yes 5mg Take 1 Univ ers rine 5 mg 5-20 tablet by ity o f tablet 00:00: mouth 3 00 (three) Medical times Branch daily. traMADOL 2018-0 Yes 50mg Take 1 Univers (ULTRAM) 50 5-20 tablet by ity of mg tablet 00:00: mouth 00 every 6 Medical (six) Branch hours as needed for Pain (scale 4-6). anastrozole anastrozole No 1 Q1D anastrozol [facility] 1 mg tablet 1 mg tablet e 1 mg Family Take 1 Take 1 tablet Practic tablet tablet Take 1 e every day every day tablet by oral by oral every day route as route as by oral needed. needed. route as needed. cetirizine cetirizine No cetirizine [facility] 10 mg 10 mg 10 mg Family capsule capsule capsule Practi c Take by Take by Take by e oral route. oral route. oral route. diazepam 10 diazepam 10 No 1 TID diazepam [place] mg tablet mg tablet 10 mg Fami ly Take 1 Take 1 tablet Practic tablet 3 tablet 3 Take 1 e times a day times a day tablet 3 by oral by oral times a route as route as day by needed. needed. oral route as needed. duloxetine duloxetine No 1capsul Q1D duloxetine [facility] 60 mg 60 mg e(s) 60 mg Family capsule,del capsule,del capsule,de Practic ayed ayed layed e release release release sprinkle sprinkle sprinkle Take 1 Take 1 Take 1 capsule capsule capsule every day every day every day by oral by oral by oral route as route as route as directed. directed. directed. fluticasone fluticasone No fluticason [place] prop.50 mcg prop.50 mcg e prop.50 Family spray,suspe spray,suspe mcg P ractic n-sod.chlor n-sod.chlor spray,susp e rogerio 0.9% rogerio 0.9% en-sod.chl nasal spray nasal spray oride 0.9% kit Take by kit Take by nasal nasal nasal spray kit route. route. Take by nasal route. glimepiride glimepiride No 1 BID glimepirid [facility] 4 mg tablet 4 mg tablet e 4 mg Family Take 1 Take 1 tablet Practic tablet tablet Take 1 e twice a day twice a day tablet by oral by oral twice a route as route as day by directed directed oral route for 90 for 90 as days. days. directed for 90 days. lisinopril lisinopril No 1 BID lisinopril [facility] 10 mg 10 mg 10 mg Family tablet Take tablet Take tablet Practic 1 tablet 1 tablet Take 1 e twice a day twice a day tablet by oral by oral twice a route as route as day by directed. directed. oral route as directed. metformin metformin No 1 Q1D metformin [facility] ER 500 mg ER 500 mg ER 500 mg Family tablet,exte tablet,exte tablet,ext Practic nded nded ended e release 24 release 24 release 24 hr 1 tablet hr 1 tablet hr 1 every day every day tablet by oral by oral every day route. route. by oral route. Ozempic Ozempic No .5mg Q1W Ozempic [place] 0.25 mg or 0.25 mg or 0.25 mg or Family 0.5 mg (2 0.5 mg (2 0.5 mg (2 Practic mg/1.5 mL) mg/1.5 mL) mg/1.5 mL) e subcutaneou subcutaneou subcutaneo s pen s pen us pen injector injector injector Inject 0.5 Inject 0.5 Inject 0.5 mg every mg every mg every week by week by week by subcutaneou subcutaneou subcutaneo s route as s route as us route directed directed as for 30 for 30 directed days. days. for 30 days. pioglitazon pioglitazon No 1 Q1D pioglitazo [place] e 15 mg e 15 mg ne 15 mg Famil y tablet Take tablet Take tablet Practic 1 tablet 1 tablet Take 1 e every day every day tablet by oral by oral every day route as route as by oral directed. directed. route as directed. pregabalin pregabalin No 1capsul Q1D pregabalin [facility] 200 mg 200 mg e(s) 200 mg Family capsule capsule capsule Practi c Take 1 Take 1 Take 1 e capsule capsule capsule every day every day every day by oral by oral by oral route as route as route as directed. directed. directed. testosteron testosteron No .25mL Q4W testostero [place] e cypionate e cypionate ne F amily 200 mg/mL 200 mg/mL cypionate Practic intramuscul intramuscul 200 mg/mL e ar kit ar kit intramuscu Inject 0.25 Inject 0.25 lar kit mL every 4 mL every 4 Inject weeks by weeks by 0.25 mL intramuscul intramuscul every 4 ar route as ar route as weeks by directed. directed. intramuscu lar route as directed. tramadol 50 tramadol 50 No 1 Q7H tramadol [place] mg tablet mg tablet 50 mg Fami ly Take 1 Take 1 tablet Practic tablet tablet Take 1 e every 6-8 every 6-8 tablet hours by hours by every 6-8 oral route oral route hours by as needed. as needed. oral route as needed. Xigduo XR 5 Xigduo XR 5 No 1 Q1D Xigduo XR [place] mg-500 mg mg-500 mg 5 mg-500 F amily tablet,exte tablet,exte mg P ractic nded nded tablet,ext e release release ended Take 1 Take 1 release tablet tablet Take 1 every day every day tablet by oral by oral every day route in route in by oral the morning the morning route in for 30 for 30 the days. days. morning for 30 days. Immunizations Ordered Filled Immunization Date Status Comments [facility] e Immunization Name Name COVID-19 vaccine, COVID-19 vaccine, 2021-02-04 Completed [place] Family vector-nr, rS-Ad26, vector-nr, rS-Ad26, 00:00:00 Practice PF, 0.5 mL PF, 0.5 mL SARS-COV-2 COVID-19 2020-12-28 Completed Unive rsity of MODERNA VACCINE 00:00:00 [facility] SARS-COV-2 COVID-19 2020-12-28 Completed Unive rsity of MODERNA VACCINE 00:00:00 [facility] SARS-COV-2 COVID-19 2020-12-28 Completed Unive rsity of MODERNA 12+ YRS 00:00:00 [facility] [place] VACCINE Branch SARS-COV-2 COVID-19 2020-11-30 Completed Unive rsity of MODERNA VACCINE 00:00:00 [facility] SARS-COV-2 COVID-19 2020-11-30 Completed Unive rsity of MODERNA VACCINE 00:00:00 [facility] SARS-COV-2 COVID-19 2020-11-30 Completed Unive rsity of MODERNA 12+ YRS 00:00:00 [facility] [place] VACCINE Branch tetanus toxoid, tetanus toxoid, 2017-03-27 Completed Vill age Family unspecified unspecified 00:00:00 Practice formulation formulation measles measles 1970 Completed [place] Family 00:00:00 Practice Vital Signs Vital Name Observation Time Observation Value Comments Source Systolic blood 2022-09-22 02:00:00 167 mm[Hg] Univer sity of pressure [facility] Diastolic blood 2022-09-22 02:00:00 94 mm[Hg] Unive rsity of pressure [facility] Heart rate 2022-09-22 02:00:00 82 /min Universi ty of [facility] Respiratory rate 2022-09-22 02:00:00 15 /min [facility] Oxygen saturation in 2022-09-22 02:00:00 91 /min [facility] blood by [facility] Pulse oximetry Branch Body temperature 2022-09-21 22:26:00 37 Anna [facility] Body height 2022-09-21 22:26:00 175.3 cm Universi ty [facility] Body weight 2022-09-21 22:26:00 [facility]059 [facility] 2022-09-21 22:26:00 33.23 kg/m2 [facility] BP Diastolic 2021-03-17 00:00:00 119 mm[Hg] [facility] Family Practice Height 2021-03-17 00:00:00 69 [in_i] [facility] Practice BMI (Body Mass 2021-03-17 00:00:00 34.4 kg/m2 [place] Family Index) Practice BP Systolic 2021-03-17 00:00:00 185 mm[Hg] [facility] Body Weight 2021-03-17 00:00:00 233 [lb_av] [facility] Practice Systolic blood 2020-02-23 13:48:00 130 mm[Hg] Univer sity of [facility] Diastolic blood 2020-02-23 13:48:00 83 mm[Hg] Unive rsity of pressure [facility] Heart rate 2020-02-23 13:44:00 105 /min Universi ty [facility] Body temperature 2020-02-23 13:44:00 36.94 Anna Univ ersity of [facility] Respiratory rate 2020-02-23 13:44:00 18 /min [facility] 2020-02-23 13:44:00 177.8 cm [facility] Body weight 2020-02-23 13:44:00 92.987 kg [facility] BMI 2020-02-23 13:44:00 29.41 kg/m2 [facility] Oxygen saturation in 2020-02-23 13:44:00 100 /min [place] of Arterial blood by [facility] Pulse oximetry Branch Heart rate 2020-02-02 22:16:00 99 /min [facility] Respiratory rate 2020-02-02 22:16:00 11 /min [facility] Oxygen saturation in 2020-02-02 22:16:00 96 /min [facility] Arterial blood by [facility] Pulse oximetry Branch Systolic blood 2020-02-02 22:00:00 147 mm[Hg] Univer sity of pressure [facility] Diastolic blood 2020-02-02 22:00:00 81 mm[Hg] Unive rsity of pressure [facility] Body temperature 2020-02-02 18:51:00 37 Anna [facility] Body weight 2020-02-02 18:47:00 92.987 kg [facility] BMI 2020-02-02 18:47:00 30.27 kg/m2 [facility] Procedures Procedure Date / Time Performing Clinician Source Performed CRITICAL CARE 2022-09-22 02:04:59 Star Quintero [facility] EKG-12 LEAD 2022-09-22 02:04:27 Star Quintero [facility] XR ABDOMEN ACUTE SERIES 2022-09-21 23:47:15 Star Quintero [facility] LIPASE 2022-09-21 22:43:00 Star Quintero [facility] TROPONIN I 2022-09-21 22:43:00 Star Quintero [facility] COMP. METABOLIC PANEL 2022-09-21 22:43:00 Star Quintero [facility] ([id number]) Medical Branch ETHANOL 2022-09-21 22:43:00 Star Quintero [facility] CBC WITH DIFF 2022-09-21 22:43:00 Star Quintero [facility] URINALYSIS 2022-09-21 22:43:00 Star Quintero [facility] RAPID STREP SCREEN FOR 2022-09-21 22:43:00 [facility] RAPID INFLUENZA A/B 2022-09-21 22:43:00 Star Quintero [facility] COVID-19 (ID NOW RAPID 2022-09-21 22:43:00 [facility] TESTING) [facility] URINE DRUG (IMMUNOASSAY) 2022-09-21 22:43:00 Star [facility] COMPREHENSIVE DRUG Medical [facility] n[place] SCREEN W/O REFLEX LACTIC ACID WHOLE BLOOD 2022-09-21 22:41:00 Star Quintero [facility] CONSENT/REFUSAL FOR 2022-09-21 22:18:17 Doctor Unassigned, No [facility] DIAGNOSIS AND TREATMENT Name [facility] ASSIGNMENT OF BENEFITS 2022-06-05 15:11:31 Doctor Un[facility]igned, No [facility] CT ABDOMEN PELVIS WO 2020-02-02 21:25:34 Domo Best [facility] CONTRAST [facility] URINALYSIS 2020-02-02 20:51:00 Domo Best [facility] LIPASE 2020-02-02 19:12:00 Domo Best [facility] TROPONIN I 2020-02-02 19:12:00 Domo Best [facility] HEPATIC FUNCTION PANEL 2020-02-02 19:12:00 Domo Best [facility] ([id number]) (ALB,T.PRO,BILI [facility] T,BU/BC,ALT,AST,ALK PHOS) BASIC METABOLIC PANEL 2020-02-02 19:12:00 Domo Best [facility] (NA, K, CL, CO2, Medical Branch GLUCOSE, BUN, CREATININE, CA) CBC WITH DIFFERENTIAL 2020-02-02 19:12:00 Domo Best [facility] EKG-12 LEAD 2020-02-02 18:59:40 Domo Best [facility] POCT GLUCOSE (AUTOMATED) 2020-02-02 18:44:00 Domo Best [facility] NOTICE OF PRIVACY 2020-02-02 18:32:38 Doctor Unassigned, No [facility] CONSENT/REFUSAL FOR 2020-02-02 18:31:50 Doctor Unassigned, No [facility] Name [facility] Plan of Care Planned Activity Planned Date Details Comments Source Diagnostic Test 2021-03-17 glucose, fingerstick, Josy Ratliff Pending 00:00:00 blood [code = Practice glucose, fingerstick, blood] Diagnostic Test 2021-03-17 hemoglobin A1C, Wyatt fuentes Pending 00:00:00 fingerstick [code = Practice hemoglobin A1C, fingerstick] Encounters Start End Encounter Admission Attending Care Care Encounter Source Date/Time Date/Time Type Type Clinicians Facility Department ID 2022-09-21 2022-09-21 [facility] [id number] Univers 17:27:00 21:11:00 STAR romero [facility] 2022-09-21 2022-09-21 [facility] [id number] Univers 17:27:00 21:11:00 Star MORIN [id number] i ty of Richard GRIFFITHS 4.2.7.2.686 [facility] [id number] [address] 2022-06-05 2022-06-05 Laboratory Only, Ang Db Test [facility] [id number] Univers 10:45:00 11:00:00 [facility] [id number] it[facility] 4.2.7.2.686 Favian as MICHELLE?BLEA [phone] Il vikas PECK [address] [place] [address] MEDICAL OFFICE BUILDING 2022-06-05 2022-06-05 Outpatient R [facility] [id number] Univers 10:45:00 10:18:21 ERINN romero o [facility] 2022-06-05 2022-06-05 Orders Doctor HOFFMAN [id number] Univers 00:00:00 00:00:00 Only Unassigned, MICHELLE [id number] ity of [place] [facility] 4.2.7.2.686 Favian as [id number] [address] 2021-06-13 2021-06-13 Outpatient Daniel_T VFP VFP [id number] 0-20 Village 12:25:00 12:25:00 [id number] Family Practic e 2021-05-09 2021-05-09 Outpatient Daniel_T VFP VFP [id number] 0-20 Village 12:22:00 12:22:00 [id number] Family Practic e 2021-04-05 2021-04-05 Outpatient Daniel_T VFP VFP [id number] 0-20 Village 01:02:00 01:02:00 [id number] Family Practic e 2021-03-18 2021-03-18 Outpatient Daniel_T VFP VFP [id number] 0-20 Village 10:28:00 10:28:00 [id number] Family Practic e 2021-03-17 2021-03-17 Maximus Daniel_T VFP [place] - [id number] Village 00:00:00 00:00:00 [facility] [id number] Family Lesvia Strauss - Mau boyce MD: [id number] VM_CARY_James e [facility], [address], [place] [address] , Ph. 2020-12-28 2020-12-28 Outpatient Day [facility] [id number] Univers 14:10:00 14:10:00 VONNIE ity [facility] 2020-11-30 2020-11-30 Outpatient Day [facility] [id number] Univers 14:30:00 14:30:00 VONNIE ity [facility] 2020-02-24 2020-02-24 Telephone Jb [facility] [id number] Univers 00:00:00 00:00:00 [facility] [id number] it y of [place] 4.2.7.2.686 Favian as Marlene [phone] [facility] [address] 2020-02-23 2020-02-23 Urgent Pob1, Acute Care Clinic [facility] [id number]. [id number] Univers 08:37:26 09:34:48 Care Kaitlin Rankin [id number] ity of [place] 4.2.7.2.686 [facility] [id number] Il dical nal [address] 2020-02-23 2020-02-23 Outpatient R [facility] [id number] Univers 08:40:00 08:40:00 ity of [facility] 2020-02-22 2020-02-22 Outpatient R CLOVIS NELSON [facility] [id number] Univers 17:40:00 17:40:[facility] 2020-02-02 2020-02-02 Emergency Domo Best [facility] [id number] Univers 13:36:30 18:15:00 T [place] 350.1.13.10 i ty of [place] 4.2.7.2.686 [facility] [phone] [facility] [address] 2020-02-02 2020-02-02 Emergency X DOMO BEST [facility] ERT [id number] Univers 13:36:30 18:15:00 [facility] Results Test Description Test Time Test Comments Results Result Comments Source Lactic Acid Whole Blood 2022-09-21 22:44:25 Test Item Value Reference Range Interpretation Comme nts LACTIC ACID (test code = 5106841772) 1.65 mmol/L 0.50-2.20 Lab Interpretation (test code = 78338-4) [facility]O [id number] 21:42:271. ?Right upper renal pole exophytic 1.7 cm cystic lesion that measuresslightly higher than expectedfor simple cyst. Findings may representproteinaceous or hemorrhagic cyst. This could be confirmed with multiphasicCT or MRI. 2. ?No hydronephrosis or urinary system calculi. 3. ?Circumferential urinarybladder wall thickening out of proportion todegree of distention. Correlate with UA to exclude possibility of cystitisand/or UTI. 4. ?Small sliding-type hiatal hernia. 5. ?Technically indeterminate hypoattenuating lesion measuring 1.0 cm nearsplenic hilum, probably benign in the absence of history of malignancy.Comparison to priors would be helpful.CT abdomen and pelvis without contrast REASON FOR STUDY: Nausea, vomiting COMPARISON: None available. TECHNIQUE: Unenhanced multidetector axial CT imagesfrom lung bases throughpelvic inlet. As requested, no IV contrast was used. Coronal and sagittalMPR images also generated. INTRAVENOUS CONTRAST ADMINISTRATION: None. DOSE REPORT (Total DLP mGy*cm): 513. FINDINGS: Limited evaluation of abdominal and pelvic organs due to lack ofintravenous contrast. Lower chest: Within normal limits. ABDOMEN AND PELVISLiver: No focal hepatic lesions within limits of une nhanced technique. Biliary Tract/GB: Physiologically distended gallbladder without radiopaquecholelithiasis. No pericholecystic free fluid. Spleen: Technically indeterminate 1.0 cm hypoattenuating lesion near thesplenic hilum, probably benign in the absence of history of malignancy. Pancreas: No pancreatic ductal dilatation. Diffuse fatty atrophy. Adrenals: Within normal limits. Kidneys: Right upper renal pole contains a 1.7 cm exophytic lesionmeasuring approximately 20 Hounsfield units (3:62). No hydronephrosis ornephrolithiasis. No hydroureter. No radiopaque calculi within bilateralureters. Bowel: Small amount of mural fatty infiltration of the ascending colon.This can be seen with chronic inflammatory change or be normal. Remainderof the colon and small bowel appear unremarkable. Normal appendix. Noabnormal bowel dilatation or wall thickening. Small sliding-type hiatal hernia. Peritoneum: Within normal limits. Vasculature: No appreciable atherosclerotic calcifications of the abdominalaorta. Prominent long segment circumferential atherosclerotic calcificationwithin the proximal DISHA. Lymph Nodes: A few scattered periportal and retroperitoneal lymph nodes arethought to be reactive.. ? Pelvic Organs: Circumferential urinary bladder wall thickening that isslightly outof proportion to degree of distention. No radiopaque urinarybladder calculi. No pericholecystic stranding. Abdominal/Pelvic Wall: Bilateral fat-containing inguinal hernias, small.. BONES: Multilevel pos ttraumatic chronic deformities of posterior left ribs.No acute or aggressive osseous abnormality. [facility], Radiant Results Inft User - 02/02/2020 4:43 PM CDTCT abdomen and pelvis without contrastREASON FOR STUDY: Nausea, vomiting COMPARISON: None available.TECHNIQUE: Unenhanced multidetector axial CT images from lung bases throughpelvic inlet. As requested, no IV contrast was used. Coronal and sagittalMPR images also generated.INTRAVENOUS CONTRAST ADMINISTRATION: None.DOSE REPORT (Total DLP mGy*cm): 513.FINDINGS: Limited evaluation of abdominal and pelvic organs due to lack ofintravenous contrast.Lower chest: Within normal limits.ABDOMEN AND PELVISLiver: No focal hepatic lesions within limits of unenhanced technique.Biliary Tract/GB: Physiologically distended gallbladder without radiopaquecholelithiasis. No pericholecystic free fluid.Spleen: Technically indeterminate 1.0 cm hypoattenuating lesion near thesplenic hilum, probably benign in the absence of history of malignancy.Pancreas: No pancreaticductal dilatation. Diffuse fatty atrophy.Adrenals: Within normal limits.Kidneys: Right upper renal pole contains a 1.7 cm exophytic lesionmeasuring approximately 20 Hounsfield units (3:62). No hydronephrosis ornephrolithiasis. No hydroureter. No radiopaque calculi within bilateralureters.Bowel: Small amount of mural fatty infiltration of the ascending colon.This can be seen with chronic inflammatory change or be normal. Remainderof the colon and small bowel appear unremarkable. Normal appendix. Noabnormal bowel dilatation or wall thickening.Small sliding-type hiatal hernia.Peritoneum: Within normallimits.Vasculature: No appreciable atherosclerotic calcifications of the abdominalaorta. Prominent long segment circumferential atherosclerotic calcificationwithin the proximal DISHA.Lymph Nodes: A few scattered periportal and retroperitoneal lymph nodes arethought to be reactive.. Pelvic Organs: Circumferential urinary bladder wall thickening that isslightly out of proportion to degree of distention.No radiopaque urinarybladder calculi. 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 Right upper renal pole exophytic 1.7 cm cystic lesion that measuresslightly higher than expected for simple cyst. Findings may representproteinaceous or hemorrhagic cyst. This could be confirmed with multiphasicCT or MRI.2. No hydronephrosis or urinary system calculi.3. Circumferential urinary bladder wall thickening out of proportion todegree of distention. Correlate with UA to exclude possibility of cystitisand/or UTI.4. Small sliding-type hiatal hernia.5. Technically indeterminate hypoattenuating lesion measuring 1.0 cm nearsplenic hilum, probably benign in the absence of history of malignancy.Comparison to priors would be helpful.[facility] Hospital[facility]inalysis2020-[facility]-16 21:41:00 Test Item Value Reference Range Interpretation Comments APPEARANCE (test code = Clear Clear 3255866194) COLOR (test code = Yellow Yellow 0176499080) PH (test code = 4.8-8.0 8150342706) SP GRAVITY (test code = 1.003-1.030 2185929178) GLU U QUAL (test code = 150 mg/dL Normal A 1620623419) BLOOD (test code = Negative Negative 3731935821) KETONES (test code = 5 mg/dL Negative A 3097214111) PROTEIN (test code = 30 mg/dL Negative A 2887-8) UROBILIN (test code = Normal Normal 9580011069) BILIRUBIN (test code = Negative Negative 0007689085) NITRITE (test code = Negative Negative 9572473911) LEUK RANDY (test code = Negative Negative 6762091810) RBC/HPF (test code = <1 See_Comment [Autom ated message] 9984211433) The system boolino generated this result transmit tyree reference range : 0 - 3 HPF. The refe rence range was not u sed to interpret th is result as normal/abnormal . WBC/HPF (test code = See_Comment [Autom ated message] 5390287779) The system boolino generated this result transmit tyree reference range : 0 - 5 HPF. The refe rence range was not u sed to interpret th is result as normal/abnormal . BACTERIA (test code = Negative Negative 6110905015) SQ EPITH (test code = <1 HPF 4621391236) Lab Interpretation (test Abnormal code = 95145-9) [facility] HospitalTroponin [id number] 20:18:00 Test Item Value Reference Range Interpretation Comments TROPONIN I (test 0.009 ng/mL See_Comment [Automated code = 8940419673) message] The system which generated this result transmitted reference range : <=0.034. The reference range was not used to interpret this result as normal/abnormal . TOM (test code = Equal or Less than TOM) 0.034 ng/ml---Normal ?Note: Cardiac troponin begins to rise 3-4 hours after the onset of ischemia. Repeat in 4-6 hours if the sample was drawn within 3-4 hours of the onset of the symptom and found normal. Between 0.035 and 0.120 ng/mL--- Borderline. Questionable myocardial injury or necrosis ? ?Note: Serial measurement may be necessary to confirm or exclude the diagnosis of myocardial injury or necrosis; Clinical correlation (symptoms, EKGs, imaging studies, and others) required; Repeat in 4-6 hours if clinically indicated. ? Equal or Higher than 0.121 ng/mL---Abnormal. Myocardial Injury or Necrosis Likely ? Biotin has been reported to cause a negative bias, interpret results relative to patient's use of biotin. ? Lab Interpretation Normal (test code = 13861-8) [facility] Hospital[facility] (NA, K, CL, CO2, GLUCOSE, BUN, CREATININE, CA)2020-02-02 20:07:00 Test Item Value Reference Range Interpretation Comments NA (test code = 136 mmol/L 135-145 8114990354) K (test code = 3.6 mmol/L 3.5-5 3158392891) CL (test code = 94 mmol/L 98-108 L 4412726915) CO2 TOTAL (test code = 31 mmol/L 23-31 3922358689) AGAP (test code = 2-16 8730636072) BUN (test code = 34 mg/dL 7-23 H 4515872806) GLUCOSE (test code = 226 mg/dL 70-110 H 9559664971) CREATININE (test code = 1.71 mg/dL 0.6-1.25 H 3505150084) CALCIUM (test code = 9.0 mg/dL 8.6-10.6 6819451849) eGFR Calculation mL/min/1.73m2 (Non-) (test code = 8535589889) eGFR Calculation mL/min/1.73m2 () (test code = 0551104830) TOM (test code = TOM) Association of Glomerular Filtration Rate (GFR) and Staging of Kidney Disease* + --+ --+ ------+| GFR (mL/min/1.73 m2) ?| With Kidney Damage ?| ?Without Kidney Damage+ --------+ --------+ +| ?>90 ?| ?Stage one ?| ? Normal ?+ ---+ ---+ -------+| ?60-89 ?| ?Stage two ?| ? Decreased GFR ? + --+ --+ ------+| ?30-59 ?| ?Stage three ?| ? Stage three ? + --+ --+ ------+| ?15-29 ?| ?Stage four ? | ? Stage four ?+ ---+ ---+ -------+| ?<15 (or dialysis) ? ?| ?Stage five ? | ? Stage five ?+ ---+ ---+ -------+ *Each stage assumes the associated GFR level has been in effect for at least three months. ?Stages 1 to 5, with or without kidney disease, indicate chronic kidney disease. Notes: Determination of stages one and two (with eGFR >59mL/min/1.73 m2) requires estimation of kidney damage for at least three months as defined by structural or functional abnormalities of the kidney, manifested by either:Pathological abnormalities or Markers of kidney damage (including abnormalities in the composition of the blood or urine or abnormalities in imaging tests). Lab Interpretation Abnormal (test code = 06009-2) [facility] Hospital[facility] Function Panel (ALB, T.PRO, BILI T, BU/BC, ALT, AST, ALK PHOS)2020-02-02 20:07:00 Test Item Value Reference Range Interpretation Comments TOTAL BILI (test code = 3109054316) 0.5 mg/dL 0.1-1.1 BILI UNCON (test code = 1184568153) 0.2 mg/dL 0.1-1.1 BILI CONJ (test code = 2838458165) 0.0 mg/dL 0-0.3 T PROTEIN (test code = 3134930818) 8.0 g/dL 6.3-8.2 ALBUMIN (test code = 2586233489) 4.6 g/dL 3.5-5 ALK PHOS (test code = 0429165681) 54 U/L 34-122 ALTv (test code = 1742-6) 22 U/L 5-50 AST(SGOT) (test code = 8232621945) 27 U/L 13-40 Lab Interpretation (test code = Normal 79652-4) [facility] HospitalLipase Aujse0469-30-21 20:07:00 Test Item Value Reference Range Interpretation Comments LIPASE (test code = 9652074695) 116 U/L 0-220 Lab Interpretation (test code = Normal 00445-6) [facility] HospitalCBC WITH [id number] 19:46:00 Test Item Value Reference Range Interpretation Comments WBC (test code = See_Comment H [Automated 2272-2) message] The sy stem which generated this result transmitted reference range : 4.20 - 10.70 10*3/?L. The reference range was not used to interpret this result as normal/abnormal . RBC (test code = See_Comment L [Automated 583-8) message] The sy stem which generated this result transmitted reference range : 4.26 - 5.52 10*6/?L. The reference range was not used to interpret this result as normal/abnormal . HGB (test code = 13.6 g/dL 12.2-16.4 718-7) HCT (test code = 40.0 % 38.4-49.3 4544-3) MCV (test code = 94.8 fL 81.7-95.6 787-2) MCH (test code = 32.2 pg 26.1-32.7 785-6) MCHC (test code = 34.0 g/dL 31.2-35 786-4) RDW-SD (test code = 42.5 fL 38.5-51.6 30884-2) RDW-CV (test code = 12.2 % 12.1-15.4 788-0) PLT (test code = See_Comment [Automated 777-3) message] The sy stem which generated this result transmitted reference range : 150 - 328 10*3/ ?L. The reference r venus was not used to interpret this result as normal/abnormal . MPV (test code = 9.9 fL 9.8-13 65112-0) NRBC/100 WBC (test See_Comment [Automat ed code = 2095146476) message] The system which generated this result transmitted reference range : 0.0 - 10.0 /100 WBCs. The refer ence range was not u sed to interpret th is result as normal/abnormal . NRBC x10^3 (test code <0.01 See_Comment [Auto mated = 0922613658) message] The s ystem which generated this result transmitted reference range : 10*3/?L. The reference range was not used to interpret this result as normal/abnormal . GRAN MAT (NEUT) % 79.5 % (test code = 770-8) IMM GRAN % (test code 0.30 % = 9516963749) LYMPH % (test code = 13.5 % 736-9) MONO % (test code = 5.8 % 5905-5) EOS % (test code = 0.6 % 713-8) BASO % (test code = 0.3 % 706-2) GRAN MAT x10^3(ANC) 9.23 10*3/uL 1.99-6.95 H (test code = 5032656561) IMM GRAN x10^3 (test 0.04 10*3/uL 0-0.06 code = 3301054787) LYMPH x10^3 (test code 1.57 10*3/uL 1.09-3.23 = 731-0) MONO x10^3 (test code 0.68 10*3/uL 0.36-1.02 = 742-7) EOS x10^3 (test code = 0.07 10*3/uL 0.06-0.53 711-2) BASO x10^3 (test code 0.04 10*3/uL 0.01-0.09 = 704-7) Lab Interpretation Abnormal (test code = 17173-8) [facility]PO[facility] (AUT[facility]ATED)2020-02-02 18:55:00 Test Item Value Reference Range Interpretation Comments POCT GLU (test code = 6385036962) 246 mg/dL 70-110 H Lab Interpretation (test code = Abnormal 42739-3) [facility]"
[2022-12-10] MEDS ORDERED: ONDANSETRON 4 MG/2 ML VIAL ONE ×2 (14:36→16:29)
[2022-12-10] MEDS ORDERED: FAMOTIDINE 20 MG/2 ML VIAL IV ONE (14:36)
[2022-12-10] MEDS ORDERED: NA CHLORIDE 0.9% 1,000 ML ONE ×2 (14:36→15:37)
[2022-12-10 14:51] LABS: Absolute Lymphocytes (CBC) 2.1 K/uL (0.7-4.9); Hematocrit 47.7 % (39.6-49.0); Lymphocytes % 12.8 % (15.3-44.8); MCV 96.8 fL (80-100); MPV 8.4 fL (7.6-11.3); RBC Red Blood Cell Count 4.93 M/uL (4.33-5.43)
[2022-12-10 14:57] LABS: Urine Blood Negative (Negative); Urine Glucose 2+ (Negative); Urine Protein 1+ (Negative); Urine Specific Gravity 1.015 (1.005-1.030); Urine pH 5.5 (5.0-7.0)
[2022-12-10 15:17] LABS: Urine Bacteria None Seen /HPF (<20); Urine RBC <5 /HPF (None Seen)
[2022-12-10 15:20] LABS: ALT/SGPT 26 U/L (16-61); AST/SGOT 15 U/L (15-37); Albumin 3.7 g/dL (3.4-5.0); Alkaline Phosphatase 69 U/L (45-117); BUN Blood Urea Nitrogen 35 mg/dL (7-18); Bicarbonate 20 mmol/L (21-32); Bilirubin Direct 0.1 mg/dL (0-0.2); Bilirubin Total 0.7 mg/dL (0.2-1.0); Glomerular Filtration Rate 41 ml/min (=/>90); Glucose Level 358 mg/dL (74-106); Lipase 165 U/L (73-393); Magnesium 2.3 mg/dL (1.6-2.4); Potassium 4.5 mmol/L (3.5-5.1); Protein, Total 8.1 g/dL (6.4-8.2); Sodium Level 131 mmol/L (136-145); Troponin High Sensitivity 25.5 pg/mL (<58.9)
[2022-12-10 15:30] LABS: SARS-COV-2 RT PCR NEGATIVE (NEGATIVE)
[2022-12-10] MEDS ORDERED: INSULIN -REGULAR HUMAN 50 UNIT/0.5 ML ML ONE ×2 (15:37→17:25)
--- NOTE | 2022-12-10 15:38 | EDPHYS ---
Physician Documentation [facility] Name: Zaid Chiang Age: 52 yrs Sex: Male : 1970 Arrival Date: 12/10/2022 Time: 12:59 Bed 3 Private MD: ED Physician Pola Davenport HPI: 12/10 14:10 This 52 yrs old Male presents to ER via Ambulatory with complaints of Nausea/Vomiting, cp diabetic. 14:10 The patient presents to the emergency department with nausea, with "dry heaves". Onset: cp The symptoms/episode began/occurred since this past . Possible causes: diabetes. Associated signs and symptoms: Pertinent positives: anorexia, Pertinent negatives: abdominal pain, constipation, diarrhea, fever, vomiting. Severity of symptoms: in the emergency department the symptoms are unchanged despite home interventions. Historical: - Allergies: 14:05 No Known Allergies; vg1 - Home Meds: 14:05 glimepiride 4 mg Oral tab 1 tab twice a day [Active]; metformin 250 mg Oral tab 1 tab 2 vg1 times per day [Active]; lisinopril 5 mg Oral tab 1 tab twice a day [Active]; gabapentin 100 mg Oral cap 1 caps twice a day [Active]; 20:30 ozempic once a week [Active]; pf1 - PMHx: 14:05 Diabetes - NIDDM; Hypertension; vg1 - PSHx: 14:05 None; vg1 - Immunization history:: Client reports receiving the 2nd dose of the Covid vaccine. - Social history:: Smoking status: Patient denies any tobacco usage or history of. ROS: 14:15 Constitutional: Positive for poor PO intake, Negative for body aches, chills, fever. cp 14:15 Eyes: Negative for injury, pain, redness, and discharge. cp 14:15 ENT: Negative for drainage from ear(s), ear pain, sore throat, difficulty swallowing, difficulty handling secretions. 14:15 Cardiovascular: Negative for chest pain, palpitations. 14:15 Respiratory: Negative for cough, shortness of breath, wheezing. 14:15 Abdomen/GI: Positive for nausea, anorexia, Negative for abdominal pain, vomiting, diarrhea, constipation. 14:15 : Negative for urinary symptoms. 14:15 Neuro: Negative for altered mental status, dizziness, headache, numbness, weakness. 14:15 All other systems are negative. Exam: 14:20 Constitutional: The patient appears in no acute distress, alert, awake, cp non-diaphoretic, non-toxic, well developed, well nourished, uncomfortable. 14:20 Head/Face: Normocephalic, atraumatic. cp 14:20 Eyes: Periorbital structures: appear normal, Conjunctiva: normal, no exudate, no injection, Sclera: no appreciated abnormality, Lids and lashes: appear normal, bilaterally. 14:20 ENT: External ear(s): are unremarkable, Nose: is normal, Mouth: Lips: dry, Oral mucosa: dry, Posterior pharynx: is normal, airway is patent, no erythema, no exudate. 14:20 Neck: ROM/movement: is normal, is supple, without pain, no range of motions limitations, no meningismus. 14:20 Chest/axilla: Inspection: normal. 14:20 Cardiovascular: Rate: tachycardic, Rhythm: regular, Edema: is not appreciated, JVD: is not appreciated. 14:20 Respiratory: the patient does not display signs of respiratory distress, Respirations: normal, no use of accessory muscles, no retractions, labored breathing, is not present, Breath sounds: are clear throughout, no decreased breath sounds, no stridor, no wheezing. 14:20 Abdomen/GI: Inspection: abdomen appears normal, Bowel sounds: active, all quadrants, Palpation: soft, in all quadrants, mild abdominal tenderness, in the right lower quadrant and left lower quadrant, rebound tenderness, is not appreciated, involuntary guarding, is not appreciated. 14:20 Back: CVA tenderness, is absent. 14:20 Skin: cellulitis, is not appreciated, no rash present. 14:20 Neuro: Orientation: to person, place \\T\\ time. Mentation: is normal, Cerebellar function: is grossly normal, Motor: moves all fours, strength is normal, Sensation: is normal. 14:27 ECG was reviewed by the Attending Physician. cp Vital Signs: 13:56 BP 106 / 77; Pulse 99; Resp 18; Temp 98.4(O); Pulse Ox 100% on R/A; Weight 95.25 kg; vg1 Height 5 ft. 10 in. (177.80 cm); Pain 0/10; 14:40 BP 134 / 83; Pulse 102; Resp 16 S; Temp 98.0(TE); Pulse Ox 99% on R/A; Pain 0/10; aa5 16:15 BP 115 / 71; Pulse 99; Resp 20 S; Pulse Ox 98% on R/A; aa5 17:50 BP 126 / 70; Pulse 100; Resp 18 S; Temp 97.9(TE); Pulse Ox 97% on R/A; aa5 19:15 BP 129 / 78; Pulse 102; Resp 20; Temp 99.5(O); Pulse Ox 96% on R/A; Pain 0/10; pf1 20:00 BP 147 / 80; Pulse 102; Resp 18; Temp 99(O); Pulse Ox 98% on R/A; Pain 0/10; pf1 13:56 Body Mass Index 30.13 (95.25 kg, 177.80 cm) vg1 MDM: 14:12 Patient medically screened. 15:45 Data reviewed: vital signs, nurses notes, lab test result(s), EKG, I have discussed the patient's presentation/case with the attending Emergency Department Physician;. 15:45 Consideration of Admission/Observation Patient was admitted/placed on observation. cp Management of patient was discussed with the following: Hospitalist: DR Deng. I considered the following discharge prescriptions or medication management in the emergency department Medications were administered in the Emergency Department. See MAR. Test considered but Not performed: Other Details CT abdomen/pelvis. Care significantly affected by the following chronic conditions: Diabetes. Counseling: I had a detailed discussion with the patient and/or guardian regarding: the historical points, exam findings, and any diagnostic results supporting the discharge/admit diagnosis, lab results, the need for further work-up and treatment in the hospital. Response to treatment: the patient's symptoms have mildly improved after treatment. 12/10 13:59 Order name: Basic Metabolic Panel; Complete Time: 15:29 cp 12/10 15:30 Interpretation: Normal except: NA 131; CL 92; CO2 20; ANION GAP 23.5; GLUC 358; BUN 35; cp CRE 1.93; GFR 41. 12/10 13:59 Order name: CBC with Diff; Complete Time: 15:10 cp 12/10 15:10 Interpretation: Normal except: WBC 16.10; TABITHA% 79.8; LYM% 12.8; NEUT A 12.8. cp 12/10 13:59 Order name: LFT's; Complete Time: 15:29 cp 12/10 13:59 Order name: Magnesium; Complete Time: 15:29 cp 12/10 13:59 Order name: Troponin HS; Complete Time: 15:29 cp 12/10 13:59 Order name: COVID-19/FLU A+B; Complete Time: 17:00 cp 12/10 13:59 Order name: Urine Microscopic Only; Complete Time: 15:29 cp 12/10 13:59 Order name: Ketone, Serum; Complete Time: 15:29 cp 12/10 13:59 Order name: Lipase; Complete Time: 15:29 cp 12/10 14:14 Order name: Glucose, Ancillary Testing; Complete Time: 15:10 EDMS 12/10 14:58 Order name: Urine Dipstick-Ancillary; Complete Time: 15:10 EDMS 12/10 16:43 Order name: Glucose, Ancillary Testing; Complete Time: 17:00 EDMS 12/10 17:13 Order name: Acetone Level EDMS 12/10 17:13 Order name: Acetone Level EDMS 12/10 17:13 Order name: Acetone Level EDMS 12/10 17:13 Order name: Basic Metabolic Panel EDMS 12/10 17:13 Order name: Basic Metabolic Panel EDMS 12/10 17:13 Order name: Basic Metabolic Panel EDMS 12/10 17:13 Order name: CBC with Automated Diff EDMS 12/10 17:13 Order name: CBC with Automated Diff EDMS 12/10 17:13 Order name: CBC with Automated Diff EDMS 12/10 17:13 Order name: CBC with Automated Diff EDMS 12/10 17:13 Order name: Lipid Profile EDMS 12/10 17:13 Order name: Lipid Profile EDMS 12/10 17:13 Order name: Magnesium EDMS 12/10 17:13 Order name: Magnesium EDMS 12/10 17:13 Order name: Magnesium EDMS 12/10 17:13 Order name: Magnesium EDMS 12/10 17:17 Order name: Hemoglobin A1c EDMS 12/10 18:00 Order name: Glucose, Ancillary Testing; Complete Time: 19:02 EDMS 12/10 13:59 Order name: EKG; Complete Time: 14:00 cp 12/10 13:59 Order name: Cardiac monitoring; Complete Time: 14:32 cp 12/10 13:59 Order name: EKG - Nurse/Tech; Complete Time: 14:15 cp 12/10 13:59 Order name: IV Saline Lock; Complete Time: 14:14 cp 12/10 13:59 Order name: Labs collected and sent; Complete Time: 14:14 cp 12/10 13:59 Order name: O2 Per Protocol; Complete Time: 14:07 cp 12/10 13:59 Order name: O2 Sat Monitoring; Complete Time: 14:07 cp 12/10 13:59 Order name: Urine Dipstick-Ancillary (obtain specimen); Complete Time: 14:45 cp 12/10 16:29 Order name: Accucheck Blood Glucose: \\T\\1645; Complete Time: 16:31 cp 12/10 18:37 Order name: Glucose, Ancillary Testing; Complete Time: 19:02 EDMS 12/10 19:25 Order name: Glucose, Ancillary Testing EDMS 12/10 20:39 Order name: Glucose, Ancillary Testing EDMS EC:27 Rate is 106 beats/min. Rhythm is regular. MI interval is normal. QRS interval is cp normal. QT interval is normal. Interpreted by me. Reviewed by me. Administered Medications: 14:40 Drug: NS 0.9% 1000 ml Route: IV; Rate: 1 bolus; Site: right antecubital; aa5 15:40 Follow up: IV Status: Completed infusion; IV Intake: 1000ml aa5 14:40 Drug: Zofran (Ondansetron) 4 mg Route: IVP; Site: right antecubital; aa5 14:50 Follow up: Response: No adverse reaction aa5 14:40 Drug: Pepcid (famotidine) 20 mg Route: IVP; Site: right antecubital; aa5 14:50 Follow up: Response: No adverse reaction aa5 15:40 Drug: Insulin Regular Human 10 units {Co-Signature: ld1 (Annie Salter RN).} Route: aa5 IVP; Site: right antecubital; 16:32 Follow up: Response: Blood sugar is lowered aa5 15:40 Drug: NS 0.9% 1000 ml Route: IV; Rate: 1 bolus; Site: right antecubital; aa5 16:32 Follow up: IV Status: Completed infusion; IV Intake: 1000ml aa5 16:25 Drug: Zofran (Ondansetron) 4 mg Route: IVP; Site: right antecubital; aa5 16:45 Follow up: Response: No adverse reaction; Nausea is decreased aa5 17:48 Drug: D5-1/2 NS 1000 ml Route: IV; Rate: 150 ml/hr; Site: right antecubital; aa5 20:50 Follow up: Response: No adverse reaction; Marked relief of symptoms; IV Status: pf1 Infusion continued upon admission 17:50 Drug: Insulin Drip - (Insulin Regular Human 100 units, NS 0.9% 100 ml) {Co-Signature: aa5 ld1 (Annie Salter RN).} Route: IV; Rate: 3 units/hr; Site: right antecubital; 20:50 Follow up: Response: No adverse reaction; Marked relief of symptoms; IV Status: pf1 Infusion continued upon admission Point of Care Testing: Blood Glucose: 16:33 Blood Glucose: 240 mg/dL; aa5 17:50 Blood Glucose: 218 mg/dL; aa5 18:26 Blood Glucose: 217 mg/dL; aa5 Ranges: Critical Glucose Levels:Adult <50 mg/dl or >400 mg/dl <40 mg/dl or >180 mg/dl Disposition Summary: 12/10/22 15:38 Hospitalization Ordered Hospitalization Status: Inpatient Admission cp Provider: Sachi Deng cp Condition: Stable cp Problem: new cp Symptoms: are unchanged cp Bed/Room Type: Standard cp Location: Intensive Care Unit(12/10/22 17:02) cp Room Assignment: 1-(12/10/22 20:05) cg Diagnosis - Diabetes mellitus due to underlying condition with ketoacidosis cp Forms: - Medication Reconciliation Form cp - SBAR form cp Addendum: 12/12/2022 01:05 Co-signature as Attending Physician, Pola Davenport MD I reviewed the patient's care r n provided by the Advanced Practice Provider and agree with the diagnosis and treatment plan. Signatures: Dispatcher [employer] Triston Charlton PA PA jmm Nieto, Roman, MD MD rn Calderon, Audri RN DELON aa5 Sravan Archuleta PA PA cp Garcia, Cindy, RN RN cg Garcia, Victoria, RN RN 1 Louisa santiago RN RN pf1 Annie Salter RN ld1 Corrections: (The following items were deleted from the chart) 12/10 17: 15:38 Telemetry/MedSurg (Inpatient) cp cp 17: 15:38 cp cp 20:05 17:02 cp cg
--- NOTE | 2022-12-10 15:38 | ER ---
Nurse's Notes [facility] Name: Zaid Chiang Age: 52 yrs Sex: Male : 1970 Arrival Date: 12/10/2022 Time: 12:59 Bed 3 Private MD: Diagnosis: Diabetes mellitus due to underlying condition with ketoacidosis Presentation: 12/10 13:56 Chief complaint: Patient states: Since has been dealing with BGL of 400s with vg1 NV and loose stool. Intolerance of food and fluids. Coronavirus screen: Vaccine status: Patient reports receiving the 2nd dose of the covid vaccine. Client denies travel out of the [place] in the last 14 days. Ebola Screen: Patient negative for fever greater than or equal to 101.5 degrees Fahrenheit, and additional compatible Ebola Virus Disease symptoms. Initial Sepsis Screen: Does the patient meet any 2 criteria? HR > 90 bpm. Does the patient have a suspected source of infection? No. Patient's initial sepsis screen is negative. Risk Assessment: Do you want to hurt yourself or someone else? Patient reports no desire to harm self or others. Onset of symptoms was December 07, 2022. 13:56 Method Of Arrival: Ambulatory vg1 13:56 Acuity: KATHLEEN 3 vg1 Triage Assessment: 14:05 General: Appears uncomfortable, Behavior is calm, cooperative, Smells of ketones. Pain: vg1 Denies pain. Neuro: Level of Consciousness is awake, alert, obeys commands, Oriented to person, place, time, situation. GI: Reports diarrhea, intolerance of fluids, intolerance of food, nausea, vomiting. Derm: Skin temperature is cool. Historical: - Allergies: 14:05 No Known Allergies; vg1 - Home Meds: 14:05 glimepiride 4 mg Oral tab 1 tab twice a day [Active]; metformin 250 mg Oral tab 1 tab 2 vg1 times per day [Active]; lisinopril 5 mg Oral tab 1 tab twice a day [Active]; gabapentin 100 mg Oral cap 1 caps twice a day [Active]; 20:30 ozempic once a week [Active]; pf1 - PMHx: 14:05 Diabetes - NIDDM; Hypertension; vg1 - PSHx: 14:05 None; vg1 - Immunization history:: Client reports receiving the 2nd dose of the Covid vaccine. - Social history:: Smoking status: Patient denies any tobacco usage or history of. Screenin:30 [facility] ED Fall Risk Assessment (Adult) History of falling in the last 3 months, aa5 including since admission No falls in past 3 months (0 pts) Confusion or Disorientation No (0 pts) Intoxicated or Sedated No (0 pts) Impaired Gait No (0 pts) Mobility Assist Device Used No (0 pt) Altered Elimination No (0 pt) Score/Fall Risk Level 0 - 2 = Low Risk. Abuse screen: Denies threats or abuse. Nutritional screening: No deficits noted. Tuberculosis screening: No symptoms or risk factors identified. Assessment: 14:30 General: Appears uncomfortable, Behavior is calm, cooperative. Pain: Denies pain. aa5 Neuro: Level of Consciousness is awake, alert, obeys commands, Oriented to person, place, time, situation. Cardiovascular: Heart tones S1 S2 present Rhythm is regular. Respiratory: Airway is patent Respiratory effort is even, unlabored, Respiratory pattern is regular, symmetrical. GI: Abdomen is round non-distended, Bowel sounds present X 4 quads. Abd is soft and non tender X 4 quads. Reports nausea, vomiting, since . : No signs and/or symptoms were reported regarding the genitourinary system. EENT: No signs and/or symptoms were reported regarding the EENT system. Derm: Skin is pink, warm \T\ dry. Musculoskeletal: Range of motion: intact in all extremities. 14:50 Reassessment: Patient is alert, oriented x 3, equal unlabored respirations, skin aa5 warm/dry/pink. 15:35 Reassessment: Patient is alert, oriented x 3, equal unlabored respirations, skin aa5 warm/dry/pink. Pt still c/o nausea, provider notified. . 16:25 Reassessment: Patient is alert, oriented x 3, equal unlabored respirations, skin aa5 warm/dry/pink. 16:41 Reassessment: Dr. Deng at bedside (hospitalist) . aa5 17:50 Reassessment: Patient is alert, oriented x 3, equal unlabored respirations, skin aa5 warm/dry/pink. States no complaints at this time. Notified of wait time for ICU bed assignment. . 19:00 General: Appears in no apparent distress. comfortable, well groomed, well developed, pf1 Behavior is calm, cooperative, quiet. 19:00 Pain: Complains of pain in head. Neuro: Level of Consciousness is awake, alert, obeys pf1 commands, Oriented to person, place, time, situation. Cardiovascular: No deficits noted. Heart tones S1 S2 S4 Rhythm is sinus tachycardia. 19:00 Respiratory: No deficits noted. Airway is patent Respiratory effort is even, unlabored, pf1 Respiratory pattern is regular, symmetrical. 19:00 GI: Abdomen is round non-distended, Bowel sounds present X 4 quads. Abd is soft and non pf1 tender X 4 quads. Reports diarrhea, nausea, vomiting, since with elevated BS patient stated diarrhea x 3 episodes within the past 24 hours and no vomiting today, just nausea. 20:00 Reassessment: Patient appears in no apparent distress at this time. No changes from pf1 previously documented assessment. Patient and/or family updated on plan of care and expected duration. Pain level reassessed. Patient is alert, oriented x 3, equal unlabored respirations, skin warm/dry/pink. Patient states symptoms have improved. Vital Signs: 13:56 BP 106 / 77; Pulse 99; Resp 18; Temp 98.4(O); Pulse Ox 100% on R/A; Weight 95.25 kg; vg1 Height 5 ft. 10 in. (177.80 cm); Pain 0/10; 14:40 BP 134 / 83; Pulse 102; Resp 16 S; Temp 98.0(TE); Pulse Ox 99% on R/A; Pain 0/10; aa5 16:15 BP 115 / 71; Pulse 99; Resp 20 S; Pulse Ox 98% on R/A; aa5 17:50 BP 126 / 70; Pulse 100; Resp 18 S; Temp 97.9(TE); Pulse Ox 97% on R/A; aa5 19:15 BP 129 / 78; Pulse 102; Resp 20; Temp 99.5(O); Pulse Ox 96% on R/A; Pain 0/10; pf1 20:00 BP 147 / 80; Pulse 102; Resp 18; Temp 99(O); Pulse Ox 98% on R/A; Pain 0/10; pf1 13:56 Body Mass Index 30.13 (95.25 kg, 177.80 cm) vg1 ED Course: 12:59 Patient arrived in ED. am2 13:11 Sravan Archuleta PA is PHCP. cp 13:18 Pola Davenport MD is Attending Physician. cp 14:05 Triage completed. vg1 14:05 Arm band placed on. vg1 14:19 COVID-19/FLU A+B Sent. vg1 14:30 Patient has correct armband on for positive identification. Bed in low position. Call aa5 light in reach. Side rails up X2. Client placed on continuous cardiac and pulse oximetry monitoring. NIBP monitoring applied. 14:30 IV 20G to R AC noted . aa5 14:31 Belle Yu, DELON is Primary Nurse. aa5 15:37 Sachi Deng MD is Hospitalizing Provider. cp 19:08 Report given to Krystyna RN and DELON Mcrae. aa5 20:26 No provider procedures requiring assistance completed. pf1 20:26 Patient admitted, IV remains in place. pf1 Administered Medications: 14:40 Drug: NS 0.9% 1000 ml Route: IV; Rate: 1 bolus; Site: right antecubital; aa5 15:40 Follow up: IV Status: Completed infusion; IV Intake: 1000ml aa5 14:40 Drug: Zofran (Ondansetron) 4 mg Route: IVP; Site: right antecubital; aa5 14:50 Follow up: Response: No adverse reaction aa5 14:40 Drug: Pepcid (famotidine) 20 mg Route: IVP; Site: right antecubital; aa5 14:50 Follow up: Response: No adverse reaction aa5 15:40 Drug: Insulin Regular Human 10 units {Co-Signature: ld1 (Annie Salter RN).} Route: aa5 IVP; Site: right antecubital; 16:32 Follow up: Response: Blood sugar is lowered aa5 15:40 Drug: NS 0.9% 1000 ml Route: IV; Rate: 1 bolus; Site: right antecubital; aa5 16:32 Follow up: IV Status: Completed infusion; IV Intake: 1000ml aa5 16:25 Drug: Zofran (Ondansetron) 4 mg Route: IVP; Site: right antecubital; aa5 16:45 Follow up: Response: No adverse reaction; Nausea is decreased aa5 17:48 Drug: D5-1/2 NS 1000 ml Route: IV; Rate: 150 ml/hr; Site: right antecubital; aa5 20:50 Follow up: Response: No adverse reaction; Marked relief of symptoms; IV Status: pf1 Infusion continued upon admission 17:50 Drug: Insulin Drip - (Insulin Regular Human 100 units, NS 0.9% 100 ml) {Co-Signature: aa5 ld1 (Annie Salter RN).} Route: IV; Rate: 3 units/hr; Site: right antecubital; 20:50 Follow up: Response: No adverse reaction; Marked relief of symptoms; IV Status: pf1 Infusion continued upon admission Medication: 20:26 VIS not applicable for this client. pf1 Point of Care Testing: Blood Glucose: 16:33 Blood Glucose: 240 mg/dL; aa5 17:50 Blood Glucose: 218 mg/dL; aa5 18:26 Blood Glucose: 217 mg/dL; aa5 Ranges: Intake: 15:40 IV: 1000ml; Total: 1000ml. aa5 16:32 IV: 1000ml; Total: 2000ml. aa5 Outcome: 15:38 Decision to Hospitalize by Provider. cp 20:36 Admitted to ICU accompanied by nurse, via stretcher, room 1, on monitor, with chart, pf1 Report called to DELON Seay 20:36 Condition: stable 20:36 Discharge instructions given to patient, Instructed on the need for admit, Demonstrated understanding of instructions. 20:50 Patient left the ED. pf1 Signatures: Belle Yu RN RN aa5 Sravan Archuleta PA PA France Wilson am2 Corazon Carrillo RN RN vg1 Louisa santiago RN RN pf1 Annie Salter RN ld1 Corrections: (The following items were deleted from the chart) 22:56 19:00 GI: Abdomen is round non-distended, Bowel sounds present X 4 quads. Abd is soft pf1 and non tender X 4 quads. Reports diarrhea, nausea, vomiting, since with elevated BS pf1
[2022-12-10] MEDS ORDERED: ONDANSETRON 4 MG/2 ML VIAL IV PRN (17:07)
--- NOTE | 2022-12-10 17:14 | P.HP ---
Certification for Inpatient Patient admitted to: Observation With expected LOS: <2 Midnights Patient will require the following post-hospital care: None Practitioner: I am a practitioner with admitting privileges, knowledge of patient current condition, hospital course, and medical plan of care. Services: Services provided to patient in accordance with Admission requirements found in Title 42 Section 412.3 of the Code of Federal Regulations Patient History Date of Service: 12/10/22 Reason for admission: Diabetic ketoacidosis History of Present Illness: Patient is a 42-year-old gentleman came to the hospital after having persistent nausea and vomiting. He states he has been sick for about a week with blood sugars running between 4-500. He is not taking any insulin. He is on metformin and Ozempic. He went to [facility] night since he was having persistent nausea and vomiting. He was given Phenergan and discharged home. On Sunday he tried to eat some toast but started feeling nauseated after he had something to eat. He has some water to drink as well that evening and vomited once again. He kept himself without any food the rest of Sunday and yesterday he was burping a lot. He started feeling more nauseated today so he came to the emergency room and he was found to be in diabetic ketoacidosis. Patient was given IV fluids in the emergency room. He will be started on a insulin drip. He denies any shortness of breath. He is slightly acidotic. Patient will be admitted for further evaluation. Allergies No Known Allergies Allergy (Unverified 08/07/16 22:06) - Past Medical/Surgical History -: DM2 Past Surgical History: Patient denies surgical history - Family History Father Family History: Reviewed- Non-Contributory - Social History Smoking Status: Former smoker Alcohol use: No CD- Drugs: No Review of Systems 10-point ROS is otherwise unremarkable Physical Examination - Vital Signs Temperature: 98 F Blood Pressure: 140/80 Pulse: 100 Respirations: 18 Pulse Ox (%): 96 - Physical Exam General: Alert, In no apparent distress, Oriented x3 HEENT: Atraumatic, PERRLA, Mucous membr. moist/pink, EOMI, Sclerae nonicteric Neck: Supple, 2+ carotid pulse no bruit, No LAD, Without JVD or thyroid abnorma lity Respiratory: Clear to auscultation bilaterally, Normal air movement Cardiovascular: Regular rate/rhythm, Normal S1 S2 Gastrointestinal: Normal bowel sounds, Soft and benign, Non-distended, No tenderness Musculoskeletal: No clubbing, No swelling, No tenderness Integumentary: No rashes Neurological: Normal gait, Normal speech, Normal strength at 5/5 x4 extr, Normal tone, Sensation intact, Cranial nerves 3-12 intact, Normal affect Lymphatics: No axilla or inguinal lymphadenopathy - Studies Laboratory Data (last 24 hrs) 12/10/22 14:14: WBC 16.10 H, Hgb 16.2, Hct 47.7, Plt Count 276 12/10/22 14:14: Sodium 131 L, Potassium 4.5, BUN 35 H, Creatinine 1.93 H, Glucose 358 H, Magnesium 2.3, Total Bilirubin 0.7, AST 15, ALT 26, Alkaline Phosphatase 69, Lipase 165 Assessment & Plan - Problems (Diagnosis) (1) DKA (diabetic ketoacidosis) Current Visit: Yes Status: Acute - Plan 1. Continue with insulin drip 2. Continue with aggressive IV hydration 3. Monitor hemoglobin A1c 4. Blood sugars every hour 5. Check BMP every 6 hours 6. Industrial Chemistry Teacher regarding blood sugars; educated patient on insulin 7. Repeat acetone level in a.m. 8. GI DVT prophylaxis Discharge Plan: Home Plan to discharge in: 24 Hours - Advance Directives Does patient have a Living Will: No Does patient have a Durable POA for Healthcare: No - Code Status/Comfort Care Code Status Assessed: Yes Code Status: Full Code Critical Care: Yes Time Spent Managing PTS Care (In Minutes): 45
[2022-12-10] MEDS ORDERED: INSULIN -REGULAR HUMAN 100 UNIT in NA CHLORIDE 0.9% 100 ML IV SCH (17:15)
[2022-12-10] MEDS ORDERED: NA CHLORIDE 0.9% 100 ML IV ONE (17:25)
[2022-12-10] MEDS: D5 0.45 NS 1,000 ML IV SCH (18:00)
[2022-12-10 20:33] LABS: BUN Blood Urea Nitrogen 33 mg/dL (7-18); Bicarbonate 24 mmol/L (21-32); Glomerular Filtration Rate 43 ml/min (=/>90); Glucose Level 270 mg/dL (74-106); Potassium 4.3 mmol/L (3.5-5.1); Sodium Level 135 mmol/L (136-145)
[2022-12-10 21:28] VITALS: BMI 27.6
[2022-12-10 21:59] VITALS: O2SAT 100
[2022-12-11] MEDS: D5 0.45 NS 1,000 ML IV SCH ×2 (00:14→07:20)
[2022-12-11 00:56] LABS: BUN Blood Urea Nitrogen 31 mg/dL (7-18); Bicarbonate 25 mmol/L (21-32); Glomerular Filtration Rate 50 ml/min (=/>90); Glucose Level 214 mg/dL (74-106); Potassium 3.7 mmol/L (3.5-5.1); Sodium Level 137 mmol/L (136-145)
[2022-12-11 05:14] LABS: Absolute Lymphocytes (CBC) 2.5 K/uL (0.7-4.9); Hematocrit 37.7 % (39.6-49.0); Lymphocytes % 22.9 % (15.3-44.8); MCV 95.1 fL (80-100); MPV 7.9 fL (7.6-11.3); RBC Red Blood Cell Count 3.97 M/uL (4.33-5.43)
[2022-12-11 05:25] LABS: BUN Blood Urea Nitrogen 26 mg/dL (7-18); Bicarbonate 24 mmol/L (21-32); Glomerular Filtration Rate 52 ml/min (=/>90); Glucose Level 188 mg/dL (74-106); HDL Cholesterol 44 mg/dL (40-60); LDL Cholesterol, Calculated 48 mg/dL (<130); Potassium 3.4 mmol/L (3.5-5.1); Sodium Level 137 mmol/L (136-145)
[2022-12-11 05:44] LABS: Phosphorus 1.2 mg/dL (2.5-4.9)
[2022-12-11] MEDS ORDERED: LOSARTAN POTASSIUM 50 MG TABLET PO ONE (07:13)
[2022-12-11] MEDS ORDERED: HOME MED 1 EA UNK (Semaglutide [Ozempic] 0.25 MG/0.2 ML Pen.Injctr) SQ SCH (07:15)
[2022-12-11] MEDS ORDERED: GLIMEPIRIDE 2 MG TABLET PO SCH (07:30)
[2022-12-11] MEDS ORDERED: INFLUENZA VACCINE (for 6+ mo) 0.5 ML DOSE IMVAC ONE (08:00)
[2022-12-11] MEDS: POTASS/SODIUM PHOSPHATE 1 PKT POWD.PACK PO SCH ×3 (08:05→10:59)
[2022-12-11] MEDS ORDERED: POTASSIUM CL SA 10 MEQ TAB PO ONE (09:00)
[2022-12-11] MEDS ORDERED: METFORMIN ER 500 MG TAB PO SCH (09:00)
[2022-12-11] MEDS ORDERED: carvediloL 12.5 MG TAB PO SCH (09:00)
[2022-12-11] MEDS ORDERED: GABAPENTIN 100 MG CAP PO SCH (09:00)
[2022-12-11] MEDS ORDERED: ENOXAPARIN 40 MG/0.4 ML SQ SCH (09:00)
[2022-12-11] MEDS ORDERED: INSULIN GLARGINE 100 UNIT/ML SQ ONE (11:15)
[2022-12-11 14:01] VITALS: BP 169/97; TEMP 97.5
--- NOTE | 2022-12-11 16:51 | EKG ---
Test Date: 2022-12-10 Test Time: 14:20:01 [place] Operator: LUTHER MEASUREMENT RESULTS: Intervals: Rate: 106 CT: 158 QRSD: 78 QT: 336 QTc: 446 [place]: P: 41 CT: 158 QRS: 17 T: 31 INTERPRETIVE STATEMENTS: Sinus tachycardia Cannot rule out Anterior infarct, age undetermined Abnormal ECG Compared to ECG 11/28/2016 11:17:08 Myocardial infarct finding now present Sinus rhythm no longer present Electronically Signed On 12-11-22 16:50:11 [employer] by Darrell Marin
[2022-12-11] MEDS ORDERED: DIAZEPAM 5 MG TABLET PO SCH (21:00)
== END 2022-12-11 13:35 | disposition home or self-care (01) ==
LOC: ER 12:57 → ERHOLD 17:09 → 3RD-ICU 18:47
PROVIDERS: ADMIT Hospitalist; ATTEND Hospitalist
DX: E11.10 Type 2 diabetes mellitus with ketoacidosis without coma (principal); I10 Essential (primary) hypertension; E11.9 Type 2 diabetes mellitus without complications; Z20.822 Contact with and (suspected) exposure to COVID-19; Z87.891 Personal history of nicotine dependence
CPT/HCPCS: 96365; 96361; 93005; 85025 ×2; 80048 ×4; 36415; 82010 ×4; 83735 ×2; 84100; 80061; 82947 ×14; 80076; 83036; 84484; 83690; 0240U; 96375; 99285; 96366; J1815 ×2; J1650; J7799 ×2; J7030 ×2; J2405 ×2; 81003; 81015; G0378

== ENCOUNTER 2023-06-19 11:36 | Inpatient (IN) | payer OTHER ==
--- OUTSIDE RECORDS SUMMARY | 2023-06-19 11:40 | XMS REPORT | Continuity of Care Document ---
:1970 Author Organization [facility] t Address [address] [facility] [address] [place] [address] Care Team Providers Name Role Phone Neva ManuelShar Primary Care Physician FARRUKH GOODWIN Attending Clinician Unavailable Farrukh Goowdin MD Attending Clinician STAR QUINTERO Attending Clinician Unavailable Star Quintero MD Attending Clinician Only, Ang Db Test Attending Clinician Unavailable Erinn Melchor Attending Clinician ERINN MCGUIRE Attending Clinician Unavailable Doctor Unassigned, [place] Attending Clinician Unavailable Lynn Attending Clinician Unavailable [...] Number Effective Date Expiration Date Rao evangelista SAMANTHA II [id number] 2015 00:00:00 [facility] [id number] 2011 00:00:00 Problems Condition Condition Condition Status Onset Resolution Last Treating Co mments Source Name Details Category Date Date Treatment Clinician Date Decreased Decreased Problem Active Josy palomares testostero Testostero 4-29 Fa waldo ne level ne Level 00:00: Practi c 00 e Type 2 Type 2 Problem Active [place] diabetes Diabetes 4-29 Family mellitus Mellitus 00:00: Practi c e Neuropathy Neuropathy Problem Active [place] [facility] 4-29 Family 00:00: Practic 00 e Proteinuri Proteinuri Problem Active [place] a a 4-29 Family 00:00: Practic 00 e General General Problem Active [facility] finding of Finding of 6-23 [facility] observatio Observatio 00:00: Pr actic n of [...] 6-23 Family disorder Disorder 00:00: Practi c e 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 0-13 st tis of tis of 00:00: Hospita left foot left foot 00 l No known No known Disease Unive rs active active ity of problems problems [facility] Allergies, Adverse Reactions, Alerts Allergy Allergy Status Severity Reaction(s) Onset Inactive Treating Comm ents Source Name Type Date Date Clinician NO KNOWN Drug Active Univers ALLERGIE Class ity of S [facility] Social History Social Habit Start Date Stop Date Quantity Comments Source Gender identity [facility] Sexual [facility] Exposure to 2023-02-24 2023-03-06 Not sure University of SARS-CoV-2 (event) 00:00:00 06:35:00 [facility] Tobacco use and 2019-03-05 2019-03-05 Smokeless Universit y of exposure 00:00:00 00:00:00 tobacco non-user [facility] History of Social 2017-05-07 2017-05-[address] function 00:00:00 00:00:00 Hospital Alcohol intake 2016-09-01 2016-09-01 Current drinker [facility] dist 00:00:00 00:00:00 of alcohol Hospital (finding) Alcohol Comment 2016-08-31 2016-08-31 weekends only Method ist 00:00:00 00:00:00 Hospital Sex Assigned At [birth year] [facility] 00:00:00 00:00:00 Hospital Smoking Status Start Date Stop Date Source Former Smoker [place] Family P isabel Never smoked tobacco [facility] Medications Ordered Filled Start Stop Current Ordering Indication Dosage Frequency Signature Comments Components Source Medication Medication Date Date Medication? Clinician (SIG) Name Name NaCl 0.9% 2022- No 1000mL at 999 Uni vers (NS) bolus 03-06 mL/hr, ity of infusion 14:15: 16:12 1,000 mL, Favian as 1,000 mL 00 :00 IV Medical Infusion, Branch ONCE, 1 dose, On e 03/06/23 at 0915, STAT insulin No 7U 7 Units, Unive rs regular 03-06 IV Push, ity of human 14:15: 13:29 ONCE, 1 [place] (HUMULIN R) 00 :00 dose, On Medi mark injection 7 Tue Branch Units 03/06/23 at 0915, Routine
Indicatio n for insulin: Hyperglyce ivana metoclopram 2022- No 10mg 10 mg, Uni vers rogerio HCl 03-0618 Slow IV ity of (REGLAN) 12:45: 12:45 Push, [place] injection 00 :00 ONCE, 1 Medical 10 mg dose, On Branch e 03/06/23 at 0745, SAURAV NaCl 0.9% 2022- No 1000mL at 999 Uni vers (NS) bolus 03-06-18 mL/hr, ity of infusion 12:45: 14:17 1,000 mL, Favian as 1,000 mL 00 :00 IV Medical Infusion, Branch ONCE, 1 dose, On Sun03/06/23 at 0745, STAT furosemide 2021-11- No 40mg 40 mg, IV U nivers (LASIX) 11-22 Push, ity of injection 01:45: 01:55 ONCE, 1 [place] 40 mg 00 :00 dose, On Medical Shi Branch 09/21/22 at 2045, SAURAV nitroglycer 2021-11- No .4mg 0.4 mg, Un maye in 11-22 Sublingual ity of (NITROSTAT) 01:45: 01:55 , ONCE, 1 [place] sublingual 00 :00 dose, On Medic al tablet 0.4 [facility] 09/21/22 at 2045, SAURAV hydralAZINE 2021-11- No 20mg 20 mg, Uni vers (APRESOLINE 11-22 Slow IV ity of ) injection 01:00: 00:53 [place] 20 mg 00 :00 ONCE, 1 Medical dose, On [facility] 09/21/22 at 2000, SAURAV labetaloL 2021-11- No 40mg 40 mg, Unive rs (NORMODYNE) 11-22 Slow IV ity of injection 00:45: 00:00 Push, [place] 40 mg 00 :00 ONCE, 1 Medical dose, On [facility] 09/21/22 at 1945, SAURAV chlordiazeP 2021-11- No 25mg 25 mg, Uni vers OXIDE 11-22 Oral, ity of (LIBRIUM) 00:15: 00:05 ONCE, 1 [place] capsule 25 00 :00 dose, On Medic al mg [facility] 09/21/22 at 1915, SAURAV hydroCHLORO 2021-11- No 25mg 25 mg, Uni vers thiazide 11-22 Oral, ity of (ESIDRIX) 00:00: 00:00 ONCE, 1 [place] tablet 25 00 :00 dose, On Medica l mg [facility] 09/21/22 at 1900, SAURAV labetaloL 2021-11- No 20mg 20 mg, Unive rs (NORMODYNE) 11-22 Slow IV ity of injection 00:00: 23:19 Push, [place] 20 mg 00 :00 ONCE, 1 Medical dose, On Branch Shi 09/21/22 at 1900, Routine FENTanyl PF 2021-11- No 50ug 50 mcg, Un maye (SUBLIMAZE 11-21 Intravenou it y of (PF)) 23:30: 23:43 s, ONCE, 1 [place] injection 00 :00 dose, On Medica l 50 mcg Shi Branch 09/21/22 at 1830, STAT ondansetron 2021-11- No 4mg 4 mg, Slow Univers (ZOFRAN 11-21 IV Push, ity of (PF)) 22:45: 22:42 ONCE, 1 [place] injection 4 00 :00 dose, On Medi mark mg [facility] Branch 09/21/22 at 1745, SAURAV ondansetron 2021-11- No 4mg 4 mg, Slow Univers (ZOFRAN 11-21 IV Push, ity of (PF)) 22:45: 22:42 ONCE, 1 [place] injection 4 00 :00 dose, On Medi mark mg [facility] Branch 09/21/22 at 1745, STAT morpHINE [...] 33 :00 Medical Branch metoprolol 2021-11 Yes [id number] 25mg Take 1 U nivers tartrate 25 11-21 tablet by ity of mg tablet 00:00: mouth [place] 00 the Medical morning Branch and 1 tablet in the evening. acetaminoph 2021-11 Yes [id number] 500mg Take 1 Univers en (TYLENOL 1-03 tablet by ity of EXTRA 00:00: mouth [place] STRENGTH) 00 every 6 Medical 500 mg (six) Branch tablet hours as needed for Pain for up to 20 doses. metoprolol 2021-11 Yes [id number] 25mg Take 1 U nivers tartrate 25 1-03 tablet by ity of mg tablet 00:00: [place] 00 the Medical morning Branch and 1 tablet in the evening. acetaminoph 2021-11 Yes [id number] 500mg Take 1 Univers en (TYLENOL 1-03 tablet by ity of EXTRA 00:00: mouth [place] STRENGTH) 00 every 6 Medical 500 mg (six) Branch tablet hours as needed for Pain for up to 20 doses. famotidine 2021-11- No [id number] 20mg Take 1 Univers (PEPCID) 20 11-21 11-19 tablet by it y of mg tablet 00:00: 05:59 mouth in [place] as 00 :00 the Medical morning Branch and 1 tablet in the evening. Do all this for 30 doses. lisinopril 2020-0 Yes lisinopril U nivers 10 mg 4-06 10 mg ity of tablet 13:50: tablet [facility] pregabalin 2020-0 Yes pregabalin U nivers 200 mg 4-06 200 mg ity of capsule 13:50: capsule [address] [place] [address] dulaglutide 2020-0 Yes Trulicity U nivers (TRULICITY) 4-06 1.5 mg/0.5 it y of 1.5 mg/0.5 13:50: mL [facility] PnIj 01 subcutaneo Medica l pen Branch injector diazePAM 5 2019-0 Yes 5mg Take 5 mg Un maye mg tablet 4-06 by mouth. ity o f 13:50: [address] lisinopril 2020-0 Yes lisinopril U nivers 10 mg 4-06 10 mg ity of tablet 13:50: tablet [place] [facility] pregabalin 2020-0 Yes pregabalin U nivers 200 mg 4-06 200 mg ity of capsule 13:50: capsule [address] dulaglutide 2020-0 Yes Trulicity U nivers (TRULICITY) 4-06 1.5 mg/0.5 it y of 1.5 mg/0.5 13:50: mL [place] mL PnIj 01 subcutaneo Medica l pen Branch injector diazePAM 5 2020-0 Yes 5mg Take 5 mg Un maye mg tablet 4-06 by mouth. ity o f 13:50: [address] glimepiride 2020-0 Yes 2mg Take 2 mg U nivers 4 mg tablet 4-06 by mouth. ity of 13:49: [address] pioglitazon 2020-0 Yes 15mg Take 15 mg Univers e 15 mg 4-06 by mouth ity of tablet 13:49: daily. [address] glimepiride 2020-0 Yes 2mg Take 2 mg U nivers 4 mg tablet 4-06 by mouth. ity of 13:49: [address] pioglitazon 2020-0 Yes 15mg Take 15 mg Univers e 15 mg 4-06 by mouth ity of tablet 13:49: daily. [address] lisinopril 2020-0 Yes lisinopril U nivers 10 mg 4-06 10 mg ity of tablet 08:50: tablet [address] pregabalin 2020-0 Yes pregabalin U nivers 200 mg 4-06 200 mg ity of capsule 08:50: capsule [address] dulaglutide 2020-0 Yes Trulicity U nivers (TRULICITY) 4-06 1.5 mg/0.5 it y of 1.5 mg/0.5 08:50: mL [place] mL PnIj 01 subcutaneo Medica l pen Branch injector diazePAM 5 2020-0 Yes 5mg Take 5 mg Un maye mg tablet 4-06 by mouth. ity o f 08:50: [address] lisinopril 2020-0 Yes lisinopril U nivers 10 mg 4-06 10 mg ity of tablet 08:50: tablet [address] pregabalin 2020-0 Yes pregabalin U nivers 200 mg 4-06 200 mg ity of capsule 08:50: capsule [address] dulaglutide 2020-0 Yes Trulicity U nivers (TRULICITY) 4-06 1.5 mg/0.5 it y of 1.5 mg/0.5 08:50: mL [place] mL PnIj 01 subcutaneo Medica l us pen Branch injector diazePAM 5 2020-0 Yes 5mg Take 5 mg Un maye mg tablet 4-06 by mouth. ity o f 08:50: [place] [address] Medical Branch pregabalin 2020-0 Yes pregabalin U nivers 200 mg 4-06 200 mg ity of capsule 08:50: capsule [place] [address] Medical Branch dulaglutide 2020-0 Yes Trulicity U nivers (TRULICITY) 4-06 1.5 mg/0.5 it y of 1.5 mg/0.5 08:50: mL [place] mL PnIj 01 subcutaneo Medica l us pen Branch injector diazePAM 5 2020-0 Yes 5mg Take 5 mg Un maye mg tablet 4-06 by mouth. ity o f 08:50: [place] [address] Medical Branch pregabalin 2020-0 Yes pregabalin U nivers 200 mg 4-06 200 mg ity of capsule 08:50: capsule [address] dulaglutide 2020-0 Yes Trulicity U nivers (TRULICITY) 4-06 1.5 mg/0.5 it y of 1.5 mg/0.5 08:50: mL [place] mL PnIj 01 subcutaneo Medica l us pen Branch injector diazePAM 5 2020-0 Yes 5mg Take 5 mg Un maye mg tablet 4-06 by mouth. ity o f 08:50: [address] Branch glimepiride 2020-0 Yes 2mg Take 2 mg U nivers 4 mg tablet 4-06 by mouth. ity of 08:49: [address] pioglitazon 2020-0 Yes 15mg Take 15 mg Univers e 15 mg 4-06 by mouth ity of tablet 08:49: daily. [address] glimepiride 2020-0 Yes 2mg Take 2 mg U nivers 4 mg tablet 4-06 by mouth. ity of 08:49: [address] Branch pioglitazon 2020-0 Yes 15mg Take 15 mg Univers e 15 mg 4-06 by mouth ity of tablet 08:49: daily. [address] glimepiride 2020-0 Yes 2mg Take 2 mg U nivers 4 mg tablet 4-06 by mouth. ity of 08:49: [address] pioglitazon 2020-0 Yes 15mg Take 15 mg Univers e 15 mg 4-06 by mouth ity of tablet 08:49: daily. [address] glimepiride 2020-0 Yes 2mg Take 2 mg U nivers 4 mg tablet 4-06 by mouth. ity of 08:49: [address] pioglitazon 2020-0 Yes 15mg Take 15 mg Univers e 15 mg 4-06 by mouth ity of tablet 08:49: daily. [address] ondansetron 2020-0 2020- No [id number] 8mg Take 1 Univers 8 mg 4-05 04-09 tablet by ity of disintegrat 00:00: 04:59 [place] ing tablet 00 :00 every 8 Medica l (eight) Branch hours as needed for Nausea and Vomiting (N/V) for up to 3 days. ondansetron 2020-0 2020- No [id number] 8mg Take 1 Univers 8 mg 4-05 04-09 tablet by ity of disintegrat 00:00: 04:59 [place] ing tablet 00 :00 every 8 Medica l (eight) Branch hours as needed for Nausea and Vomiting (N/V) for up to 3 days. NaCl 0.9% 2020-0 2020- No 1000mL at 999 Uni vers (NS) bolus 02-01 mL/hr, ity of infusion 22:45: 23:00 1,000 mL, [place] as 1,000 mL 00 :00 IV Medical Infusion, Branch ONCE, 1 dose, 02/02/20 at 1745, STAT proMETHazin 2019-0 2020- No 25mg 25 mg, IV Univers [...] bolus 3-16 03-16 mL/hr, ity of infusion 19:00: 21:43 1,000 mL, [place] as 1,000 mL 00 :00 IV Medical Infusion, Branch ONCE, 1 dose, 02/02/20 at 1400, SAURAV ondansetron 2020-0 Yes [id number] 4mg Take 1 Univers (ZOFRAN 3-16 tablet by ity of ODT) 4 mg 00:00: mouth [place] disintegrat 00 every 8 Medic al ing tablet (eight) Branch hours as needed for N/V alternatin g with Promethazi ne. proMETHazin 2020-0 2020- No [id number] 25mg Take 1 Univers e 25 mg 3-16 03-29 tablet by ity of tablet 00:00: 04:59 mouth [place] 00 :00 every 6 Medical (six) Branch hours as needed for N/V alternatin g with Ondansetro n for up to 12 days. glimepiride 2019-0 Yes 2mg Take 2 mg U nivers 4 mg tablet 3-29 by mouth. ity of 16:47: [address] pioglitazon 2019-0 Yes 15mg Take 15 mg Univers e 15 mg 3-29 by mouth ity of tablet 16:47: daily. [address] Branch cyclobenzap 2018-0 Yes 5mg Take 1 Univ ers rine 5 mg 5-20 tablet by ity o f tablet 00:00: mouth 3 [place] 00 (three) Medical times Branch daily. traMADOL 2018-0 Yes 50mg Take 1 Univers (ULTRAM) 50 5-20 tablet by ity of mg tablet 00:00: mouth [place] 00 every 6 Medical (six) Branch hours as needed for Pain (scale 4-6). cyclobenzap 2018-0 Yes 5mg Take 1 Univ ers rine 5 mg 5-20 tablet by ity o f tablet 00:00: mouth 3 [place] 00 (three) Medical times Branch daily. traMADOL [...] hours as needed for Pain (scale 4-6). canaglifloz 2015-11 Yes 300mg QD Take 300 M ethodi in 0-[address] (INVOKANA) 12:11: mouth Hospit a 300 mg 42 daily. l tablet glimepiride 2015-11 Yes 2mg Q.5D Take 2 mg M ethodi (AMARYL) 4 0-[address] MG tablet 12:11: (two) Hospita 42 times a l day with meals. dulaglutide 2015-11 Yes 1.5mg Q1W Inject 1.5 Methodi (TRULICITY) 0-[address] 1.5 mg/0.5 12:11: the skin Hos karin mL pen 42 every 7 l injector days. diazepam 2015-11 Yes 5mg Q12H Take 5 mg Meth дмитрий (VALIUM) 5 0-[address] MG tablet 12:11: every 12 Hosp david 42 (twelve) l hours as needed for anxiety. multivitami 2015-11 Yes 1{tbl} QD Take 1 Me thodi n 0-[address] (THERAGRAN) 12:11: mouth Hospi ta tablet 42 daily. l anastrozole anastrozole No 1 Q1D anastrozol [facility] 1 mg tablet 1 mg tablet e 1 mg Family Take 1 Take 1 tablet Practic tablet tablet Take 1 e every day every day tablet by oral by oral every day route as route as by oral needed. needed. route as needed. cetirizine cetirizine No cetirizine [facility] 10 mg 10 mg 10 mg [...] needed. duloxetine duloxetine No 1capsul Q1D duloxetine [facility] 60 mg 60 mg e(s) 60 [...] route. glimepiride glimepiride No 1 BID glimepirid [facility] 4 mg tablet 4 mg tablet e 4 mg Family Take 1 Take 1 tablet Practic tablet tablet Take 1 e twice a day twice a day tablet by oral by oral twice a route as route as day by directed directed oral route for 90 for 90 as days. days. directed for 90 days. lisinopril lisinopril No 1 BID lisinopril [facility] 10 mg 10 mg 10 mg Family tablet Take tablet Take tablet Practic 1 tablet 1 tablet Take 1 e twice a day twice a day tablet by oral by oral twice a route as route as day by directed. directed. oral route as directed. metformin metformin No 1 Q1D metformin [facility] ER 500 mg ER 500 mg [...] directed. pregabalin pregabalin No 1capsul Q1D pregabalin [facility] 200 mg 200 mg e(s) 200 [...] Immunizations Ordered Filled Immunization Date Status Comments [facility] e Immunization Name Name COVID-19 vaccine, COVID-19 vaccine, 2021-02-04 Completed [facility] Family vector-nr, rS-Ad26, vector-nr, rS-Ad26, 00:00:00 Practice PF, 0.5 mL PF, 0.5 mL SARS-COV-2 COVID-19 2020-12-28 Completed Unive rsity of MODERNA VACCINE 00:00:00 [facility] SARS-COV-2 COVID-19 2020-12-28 Completed Unive rsity of MODERNA VACCINE 00:00:00 [facility] SARS-COV-2 COVID-19 2020-12-28 Completed Unive rsity of MODERNA 12+ YRS 00:00:00 [facility] Branch SARS-COV-2 COVID-19 2020-12-28 Completed Unive rsity of MODERNA 12+ YRS 00:00:00 [facility] ical VACCINE Branch SARS-COV-2 COVID-19 2020-11-30 Completed Unive rsity of MODERNA VACCINE 00:00:00 [place] Med ical Branch SARS-COV-2 COVID-19 2020-11-30 Completed Unive rsity of MODERNA VACCINE 00:00:00 [facility] ical Branch SARS-COV-2 COVID-19 2020-11-30 Completed Unive rsity of MODERNA 12+ YRS 00:00:00 [place] [facility] ical VACCINE Branch SARS-COV-2 COVID-19 2020-11-30 Completed Unive rsity of MODERNA 12+ YRS 00:00:00 [facility] ical VACCINE Branch tetanus toxoid, tetanus toxoid, 2017-03-27 Completed Vill age Family unspecified unspecified 00:00:00 Practice formulation formulation measles measles 1970 Completed Village Family 00:00:00 Practice Vital Signs Vital Name Observation Time Observation Value Comments Source Systolic blood 2023-03-06 15:30:00 139 mm[Hg] Univer sity of pressure [facility] [facility] Diastolic blood 2023-03-06 15:30:00 84 mm[Hg] Unive rsity of pressure [facility] Heart rate 2023-03-06 15:30:00 106 /min [facility] Respiratory rate 2023-03-06 15:30:00 18 /min [facility] Oxygen saturation in 2023-03-06 15:30:00 97 /min [facility] Arterial blood by [facility] Pulse oximetry Branch Body temperature 2023-03-06 11:36:00 37.33 [place] [facility] Body height 2023-03-06 11:36:00 177.8 cm [facility] Body weight 2023-03-06 11:36:00 99.791 kg [facility] BMI 2023-03-06 11:36:00 31.57 kg/m2 [facility] Systolic blood 2022-09-22 02:00:00 167 mm[Hg] Univer sity of pressure [facility] Diastolic blood 2022-09-22 02:00:00 94 mm[Hg] Unive rsity of pressure [place] [facility] Heart rate 2022-09-22 02:00:00 82 /min [facility] [place] [facility] Respiratory rate 2022-09-22 02:00:00 15 /min Univ ersity of [place] [facility] Oxygen saturation in 2022-09-22 02:00:00 91 /min University of Arterial blood by [facility] Pulse oximetry Branch Body temperature 2022-09-21 22:26:00 37 Anna Univ ersity [facility] [place] [facility] [place] Body height 2022-09-21 22:26:00 175.3 cm [facility] [place] [facility] Body weight 2022-09-21 22:26:00 102.059 kg [facility] [place] [facility] BMI 2022-09-21 22:26:00 33.23 kg/m2 Universi ty of [facility] BP Diastolic 2021-03-17 00:00:00 119 mm[Hg] [facility] Practice Height 2021-03-17 00:00:00 69 [in_i] [facility] Practice BMI (Body Mass 2021-03-17 00:00:00 34.4 kg/m2 Vill e Family Index) Practice BP Systolic 2021-03-17 00:00:00 185 mm[Hg] [facility] Body Weight 2021-03-17 00:00:00 233 [lb_av] [facility] Practice Systolic blood 2020-02-23 13:48:00 130 mm[Hg] Univer sity of pressure [facility] Diastolic blood 2020-02-23 13:48:00 83 mm[Hg] Unive rsity of pressure [facility] Branch Heart rate 2020-02-23 13:44:00 105 /min [facility] [place] [facility] [place] Body temperature 2020-02-23 13:44:00 36.94 Anna [facility] [place] [facility] Respiratory rate 2020-02-23 13:44:00 18 /min Univ ersity [facility] [place] [facility] Body height 2020-02-23 13:44:00 177.8 cm [facility] [place] [facility] Body weight 2020-02-23 13:44:00 92.987 kg [facility] [place] [facility] BMI 2020-02-23 13:44:00 29.41 kg/m2 [facility] [place] [facility] Oxygen saturation in 2020-02-23 13:44:00 100 /min University of Arterial blood by [facility] Pulse oximetry Branch Heart rate 2020-02-02 22:16:00 99 /min [facility] Respiratory rate 2020-02-02 22:16:00 11 /min [facility] Oxygen saturation in 2020-02-02 22:16:00 96 /min [facility] Arterial blood by [facility] Pulse oximetry Branch Systolic blood 2020-02-02 22:00:00 147 mm[Hg] [facility] Diastolic blood 2020-02-02 22:00:00 81 mm[Hg] [facility] Body temperature 2020-02-02 18:51:00 37 [place] [facility] Body weight 2020-02-02 18:47:00 92.987 kg [facility] BMI 2020-02-02 18:47:00 30.27 kg/m2 [facility] Procedures Procedure Date / Time Performing Clinician Source Performed BASIC METABOLIC PANEL 2023-03-06 15:23:00 Farrukh Goodwin [facility] (NA, K, CL, CO2, [facility] GLUCOSE, BUN, CREATININE, CA) POCT GLUCOSE (AUTOMATED) 2023-03-06 14:20:00 Farrukh Goodwin [facility] CBC WITH DIFF 2023-03-06 13:26:00 Farrukh Goodwin [facility] POCT GLUCOSE (AUTOMATED) 2023-03-06 13:23:00 Farrukh Goodwin [facility] URINALYSIS 2023-03-06 12:44:00 Beck Gonsalves [facility] LIPASE 2023-03-06 11:43:00 Beck Gonsalves [facility] COMP. METABOLIC PANEL 2023-03-06 11:43:00 Beck Gonsalves [facility] ([id number]) [facility] CBC WITH DIFF 2023-03-06 11:43:00 Beck Gonsalves [facility] POCT GLUCOSE (AUTOMATED) 2023-03-06 11:35:00 Doctor Unassigned, No [facility] CONSENT/REFUSAL FOR 2023-03-06 11:26:21 [facility]igned[facility] Name [facility] CRITICAL CARE 2022-09-22 02:04:59 Star Quintero [facility] EKG-12 LEAD 2022-09-22 02:04:27 Star Quintero [facility] XR ABDOMEN ACUTE SERIES 2022-09-21 23:47:15 Star Quintero [facility] LIPASE 2022-09-21 22:43:00 Star Quintero [facility] TROPONIN I 2022-09-21 22:43:00 Star Quintero [facility] COMP. METABOLIC PANEL 2022-09-21 22:43:00 Star Quintero [facility] ([id number]) [facility] ETHANOL 2022-09-21 22:43:00 Star Quintero [facility] CBC WITH DIFF 2022-09-21 22:43:00 Star Qiuntero [facility] URINALYSIS 2022-09-21 22:43:00 Star Quintero [facility] RAPID STREP SCREEN FOR 2022-09-21 22:43:00 Star Quintero [facility] GROUP A [facility] RAPID INFLUENZA A/B 2022-09-21 22:43:00 Star Quintero [facility] COVID-19 (ID NOW RAPID 2022-09-21 22:43:00 Star Quintero [facility] TESTING) [facility] URINE DRUG (IMMUNOASSAY) 2022-09-21 22:43:00 Star Quintero [facility] DRUG Medical [facility] SCREEN W/O REFLEX LACTIC ACID WHOLE BLOOD 2022-09-21 22:41:00 Star Quintero [facility] CONSENT/REFUSAL FOR 2022-09-21 22:18:17 Doctor Unassigned, No [facility]AT[facility] Name [facility] ASSIGNMENT OF BENEFITS 2022-06-05 15:11:31 Doctor Unassigned, No [facility] Name [facility] Branch CT ABDOMEN PELVIS WO 2020-02-02 21:25:34 Domo Best [facility] CONTRAST [facility] URINALYSIS 2020-02-02 20:51:00 Domo Best [facility] LIPASE 2020-02-02 19:12:00 Domo Best [facility] TROPONIN I 2020-02-02 19:12:00 Domo Best [facility] HEPATIC FUNCTION PANEL 2020-02-02 19:12:00 Domo Best [facility] ([id number]) (ALB,T.PRO,BILI Medical Branch T,BU/BC,ALT,AST,ALK PHOS) BASIC METABOLIC PANEL 2020-02-02 19:12:00 Domo Best [facility] (NA, K, CL, CO2, Medical Branch GLUCOSE, BUN, CREATININE, CA) CBC WITH DIFFERENTIAL 2020-02-02 19:12:00 Domo Best [facility] EKG-12 LEAD 2020-02-02 18:59:40 Domo Best [facility] POCT GLUCOSE (AUTOMATED) 2020-02-02 18:44:00 Domo Best [facility] NOTICE OF PRIVACY 2020-02-02 18:32:38 Doctor Unassigned, No Univ [facility] PRACTICES Name [facility] CONSENT/REFUSAL FOR 2020-02-02 18:31:50 Doctor Unassigned, No Un [facility] Plan of Care Planned Activity Planned Date Details Comments Source Future Scheduled 2023-05-04 [facility] Test 15:10:16 malignant neoplasm of colon (procedure) [code = 300875826] Future Scheduled 2023-05-04 [facility] Test 15:10:16 malignant neoplasm of colon (procedure) [code = 674077948] Future Scheduled 2023-05-04 [facility] Test 15:10:16 malignant neoplasm of colon (procedure) [code = 355941159] Future Scheduled 2023-05-04 COVID-19 VACCINE (#1) [facility] Test 15:10:16 [code = COVID-19 VACCINE (#1)] Future Scheduled 2023-05-04 [facility] Test 15:10:16 malignant neoplasm of colon (procedure) [code = 598485414] Future Scheduled 2023-05-04 [facility] Test 15:10:16 malignant neoplasm of colon (procedure) [code = 113409257] Future Scheduled 2023-05-04 SHINGLES VACCINES (1 [facility] 15:10:16 of 2) [code = SHINGLES VACCINES (1 of 2)] Future Scheduled 2023-05-04 INFLUENZA VACCINE [facility] Test 15:10:16 [code = INFLUENZA VACCINE] Diagnostic Test 2021-03-17 glucose, fingerstick, Josy palomares Family Pending 00:00:00 blood [code = Practice glucose, fingerstick, blood] Diagnostic Test 2021-03-17 hemoglobin A1C, Wyatt fuentes Pending 00:00:00 fingerstick [code = Practice hemoglobin A1C, fingerstick] Encounters Start End Encounter Admission Attending Care Care Encounter Source Date/Time Date/Time Type Type Clinicians Facility Department ID 2023-03-06 2023-03-06 [facility] [id number] Univers 06:28:00 11:14:00 FARRUKH romero [facility] 2023-03-06 2023-03-06 Emergency Christa [facility] [id number] Univers 06:28:00 11:14:00 Farrukh MORIN 350.1.13.10 i ty [facility] 4.2.7.2.[address] [place] [id number] 2022-09-21 2022-09-21 Emergency [facility] [id number] Univers 17:27:00 21:11:00 STAR romero [facility] 2022-09-21 2022-09-21 Emergency Leon [facility] [id number] Univers 17:27:00 21:11:00 Star MORIN 350.1.13.10 i ty of Richard GRIFFITHS 4.2.7.2.6 [facility] [id number] [address] 2022-06-05 2022-06-05 Laboratory Only, Ang Db Test [facility] 1.2.8 40.114 [id number] Univers 10:45:00 11:00:00 Only Erinn Mcguire [facility] 350.1.13.10 ity of [place] 4.2.7.2.686 Favian as MICHELLE?BLEA [id number] Sd vikas [address] MEDICAL OFFICE BUILDING 2022-06-05 2022-06-05 Outpatient R SHAYLA [facility] [id number] Univers 10:45:00 10:18:21 ERINN wilbert o f [facility] 2022-06-05 2022-06-05 Orders Doctor YASMIN 1.2.840.114 [id number] Univers 00:00:00 00:00:00 Only Unassigned, MICHELLE 350.1.13.10 ity of [place] [facility] 4.2.7.2.686 Favian as [id number] [address] 2021-06-13 2021-06-13 Outpatient Daniel_T VFP VFP [id number] 0-20 Village 12:25:00 12:25:00 [id number] Family Practic e 2021-05-09 2021-05-09 Outpatient Daniel_T VFP VFP [id number] 0-20 [facility] 12:22:00 12:22:00 [id number] Family Practic e 2021-04-05 2021-04-05 Outpatient Daniel_T VFP VFP [id number] 0-20 [place] 01:02:00 01:02:00 [id number] Family Practic e 2021-03-18 2021-03-18 Outpatient Daniel_T VFP VFP [id number] 0-20 [place] 10:28:00 10:28:00 [id number] Family Practic e 2021-03-17 2021-03-17 Maximus Daniel_T VFP [place] - [id number] 0 Village 00:00:00 00:00:00 [facility] [id number] Lesvia Simms - Mau boyce MD: [id number] TALIA_CARY_James e Shadow ow Squ[place]in Squaxin [facility], [address], [place] [address] , Ph. 2020-12-28 2020-12-28 Outpatient Day MERRITT, [facility] [id number] [facility] 14:10:00 14:10:00 VONNIE ity of [facility] 2020-11-30 2020-11-30 Outpatient R SHAINA, [facility] [id number] Univers 14:30:00 14:30:00 VONNIE ity [facility] 2020-02-24 2020-02-24 Haydee Muhammad [facility] [id number] [id number] Univers 00:00:00 00:00:00 [facility] 350.1.13.10 it y of [place] 4.2.7.2.686 Favian as Professio [id number] [address] Office [facility] 2020-02-23 2020-02-23 Urgent Pob1, Acute Care Clinic [facility] 1. 2.840.114 [id number] Univers 08:37:26 09:34:48 [facility] 350.1.13.10 ity of [place] 4.2.7.2.686 Favian as Professio [id number] [address] 2020-02-23 2020-02-23 Outpatient R [facility] [id number] Univers 08:40:00 08:40:00 ity [facility] 2020-02-22 2020-02-22 Outpatient R CLOVIS NELSON [facility] [id number] Univers 17:40:00 17:40:00 ity [facility] 2020-02-02 2020-02-02 Emergency Domo Best [facility] 1.2.840.114 [id number] Univers 13:36:30 18:15:00 T [place] 350.1.13.10 i ty of [place] 4.2.7.2.686 [place] [facility] [id number] [address] 2020-02-02 2020-02-02 Emergency X DOMO BEST [facility] ERT [id number] Univers 13:36:30 18:15:00 [facility] Results Test Description Test Time Test Comments Results Result Comments Source BASIC METABOLIC PANEL (NA, K, CL, CO2, GLUCOSE, BUN, 2023-02 15:47:30 CREATININE, CA) Test Item Value Reference Range Interpretation Comme nts NA (test code = 8279122119) 133 mmol/L 135-145 L K (test code = 0083401063) 3.8 mmol/L 3.5-5.0 CL (test code = 6852915112) 93 mmol/L 98-108 L CO2 TOTAL (test code = 6087965123) 24 mmol/L 23-31 AGAP (test code = 8667745739) 16 2-16 BUN (test code = 7476821146) 42 mg/dL 7-23 H GLUCOSE (test code = 1820808704) 299 mg/dL 70-110 H CREATININE (test code = 1.81 mg/dL 0.60-1.25 H 3035602136) CALCIUM (test code = 7747754714) 8.2 mg/dL 8.6-10.6 L eGFR (test code = 2252089175) 39.6 mL/min/1.73m2 TOM (test code = TOM) Association of Glomerular Filtration Rate (GFR) and Staging of Kidney Disease* + +-------- + ------+| GFR (mL/min/1.73 m2) ?| With Kidney Damage ?| ?Without Kidney Damage+ +-- + +| ?>90 ?| ?Stage one ?| ? Normal ?+ +------- + -------+| ?60-89 ?| ?Stage two ?| ? Decreased GFR ? + +-------- + ------+| ?30-59 ?| ?Stage three ?| ? Stage three ? + +-------- + ------+| ?15-29 ?| ?Stage four ? | ? Stage four ?+ +------- + -------+| ?<15 (or dialysis) ? ?| ?Stage five ? | ? Stage five ?+ +------- + -------+ *Each stage assumes the associated GFR [...] or abnormalities in imaging tests). Lab Interpretation (test code = Abnormal 27244-1) [facility] GLUCOSE (AUTOMATED)2023-03-06 14:21:59 Test Item Value Reference Range Interpretation Comments POCT GLU (test code = 7165068448) 351 mg/dL 70-110 H Lab Interpretation (test code = Abnormal 91394-9) [facility] WITH [id number] 13:52:38 Test Item Value Reference Range Interpretation Comments WBC (test code = 13.78 See_Comment H [Automated 6690-2) message] The system which generated this result transmit tyree reference range : 4.20 - 10.70 10*3/?L. The reference range was not used to interpret this result as normal/abnormal . RBC (test code = 4.29 See_Comment [Automated 789-8) message] The system which generated this result transmit tyree reference range : 4.26 - 5.52 10*6/?L. The reference range was not used to interpret this result as normal/abnormal . HGB (test code = 14.3 g/dL 12.2-16.4 718-7) HCT (test code = 41.2 % 38.4-49.3 4544-3) MCV (test code = 96.0 fL 81.7-95.6 H 787-2) MCH (test code = 33.3 pg 26.1-32.7 H 785-6) MCHC (test code = 34.7 g/dL 31.2-35.0 786-4) RDW-SD (test code = 44.5 fL 38.5-51.6 34234-1) RDW-CV (test code = 12.6 % 12.1-15.4 788-0) PLT (test code = 263 See_Comment [Automated 777-3) message] The system which generated this result transmit tyree reference range : 150 - 328 10*3/ ?L. The reference range was not u sed to interpret th is result as normal/abnormal . MPV (test code = 10.4 fL 9.8-13.0 96203-2) NRBC/100 WBC (test 0.0 See_Comment [Automat ed code = 0741706592) message] The system which generated this result transmit tyree reference range : 0.0 - 10.0 /100 WBCs. The reference range was not used to interpret this result as normal/abnormal . NRBC x10^3 (test code See_Comment [Auto mated = 5601627096) message] The system which generated this result transmit tyree reference range : 10*3/?L. The reference range was not used to interpret this result as normal/abnormal . GRAN MAT (NEUT) % 84.3 % (test code = 770-8) IMM GRAN % (test code 0.50 % = 9448779530) LYMPH % (test code = 9.0 % 736-9) MONO % (test code = 5.5 % 5905-5) EOS % (test code = 0.1 % 713-8) BASO % (test code = 0.6 % 706-2) GRAN MAT x10^3(ANC) 11.62 10*3/uL 1.99-6.95 H (test code = 2595425362) IMM GRAN x10^3 (test 0.07 10*3/uL 0.00-0.06 H code = 6814296615) LYMPH x10^3 (test code 1.24 10*3/uL 1.09-3.23 = 731-0) MONO x10^3 (test code 0.76 10*3/uL 0.36-1.02 = 742-7) EOS x10^3 (test code = 0.06-0.53 L 711-2) BASO x10^3 (test code 0.08 10*3/uL 0.01-0.09 = 704-7) Lab Interpretation Abnormal (test code = 80014-5) [facility] 13:26:26 Test Item Value Reference Range Interpretation Comments POCT GLU (test code = 5792273990) 425 mg/dL 70-110 H Lab Interpretation (test code = Abnormal 48774-6) [facility] Center[facility] Metabolic [id number] 12:08:50 Test Item Value Reference Range Interpretation Comments NA (test code = 130 mmol/L 135-145 L 5262554687) K (test code = 4.0 mmol/L 3.5-5.0 1840226563) CL (test code = 88 mmol/L 98-108 L 0850864719) CO2 TOTAL (test code = 23 mmol/L 23-31 1111582203) AGAP (test code = 19 2-16 H 0613109610) BUN (test code = 40 mg/dL 7-23 H 9104364596) GLUCOSE (test code = 391 mg/dL 70-110 H 3739577584) CREATININE (test code = 1.88 mg/dL 0.60-1.25 H 3345141398) TOTAL BILI (test code = 1.0 mg/dL 0.1-1.9 6471358110) CALCIUM (test code = 8.9 mg/dL 8.6-10.6 9685755069) T PROTEIN (test code = 8.1 g/dL 6.3-8.2 4862671131) ALBUMIN (test code = 4.9 g/dL 3.5-5.0 9787739097) ALK PHOS (test code = 68 U/L 34-122 5980264713) ALTv (test code = 27 U/L 5-50 1742-6) AST(SGOT) (test code = 29 U/L 13-40 4933605086) eGFR (test code = 37.9 mL/min/1.73m2 2761919847) TOM (test code = TOM) Association of [...] tests). Lab Interpretation Abnormal (test code = 30580-9) [facility] CenterLip[facility], [id number] 12:08:50 Test Item Value Reference Range Interpretation Comments LIPASE (test code = 5333396944) 66 U/L 0-220 Lab Interpretation (test code = Normal 27497-3) [facility] CenterCBC with [id number] 11:57:07 Test Item Value Reference Range Interpretation Comments WBC (test code = 14.04 See_Comment H [Automated 0295-2) message] The system which generated this result transmit tyree reference range : 4.20 - 10.70 10*3/?L. The reference range was not used to interpret this result as normal/abnormal . RBC (test code = 4.63 See_Comment [Automated 209-8) message] The system which generated this result transmit tyree reference range : 4.26 - 5.52 10*6/?L. The reference range was not used to interpret this result as normal/abnormal . HGB (test code = 15.5 g/dL 12.2-16.4 718-7) HCT (test code = 44.1 % 38.4-49.3 4544-3) MCV (test code = 95.2 fL 81.7-95.6 787-2) MCH (test code = 33.5 pg 26.1-32.7 H 785-6) MCHC (test code = 35.1 g/dL 31.2-35.0 H 786-4) RDW-SD (test code = 44.3 fL 38.5-51.6 02962-5) RDW-CV (test code = 12.7 % 12.1-15.4 788-0) PLT (test code = 300 See_Comment [Automated 417-3) message] The system which generated this result transmit tyree reference range : 150 - 328 10*3/ ?L. The reference range was not u sed to interpret th is result as normal/abnormal . MPV (test code = 9.8 fL 9.8-13.0 50493-2) NRBC/100 WBC (test 0.0 See_Comment [Automat ed code = 2406483355) message] The system which generated this result transmit tyree reference range : 0.0 - 10.0 /100 WBCs. The reference range was not used to interpret this result as normal/abnormal . NRBC x10^3 (test code See_Comment [Auto mated = 7467547142) message] The system which generated this result transmit tyree reference range : 10*3/?L. The reference range was not used to interpret this result as normal/abnormal . GRAN MAT (NEUT) % 76.0 % (test code = 770-8) IMM GRAN % (test code 0.40 % = 0030612706) LYMPH % (test code = 16.2 % 736-9) MONO % (test code = 6.6 % 5905-5) EOS % (test code = 0.3 % 713-8) BASO % (test code = 0.5 % 706-2) GRAN MAT x10^3(ANC) 10.67 10*3/uL 1.99-6.95 H (test code = 1287478719) IMM GRAN x10^3 (test 0.06 10*3/uL 0.00-0.06 code = 7836275727) LYMPH x10^3 (test code 2.27 10*3/uL 1.09-3.23 = 731-0) MONO x10^3 (test code 0.93 10*3/uL 0.36-1.02 = 742-7) EOS x10^3 (test code = 0.04 10*3/uL 0.06-0.53 L 711-2) BASO x10^3 (test code 0.07 10*3/uL 0.01-0.09 = 704-7) Lab Interpretation Abnormal (test code = 17186-1) [facility] (AUT[facility]ATED)2023-03-06 11:36:54 Test Item Value Reference Range Interpretation Comments POCT GLU (test code = 6929962367) 392 mg/dL 70-110 H Lab Interpretation (test code = Abnormal 53813-6) [facility] CenterLaflic Acid Whole [id number] 22:44:25 Test Item Value Reference Range Interpretation Comments LACTIC ACID (test code = 1.65 mmol/L 0.50-2.20 8296636383) Lab Interpretation (test code = Normal 70099-2) [facility] CenterCT Abdomen/Pelvis W/O [id number] 21:42:271. ?Right upper renal pole exophytic 1.7 [...] isslightly out of proportion to degree of distention. No radiopaque urinarybladder calculi. 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 Right upper renal pole exophytic1.7 cm cystic lesion that measuresslightly higher than [...] history of malignancy.Comparison to priors would be helpful.[facility] CenterUrinalysis2020-03-16 21:41:00 Test Item Value Reference Range Interpretation Comments APPEARANCE (test code = Clear Clear 0584392617) COLOR (test code = Yellow Yellow 0450094117) PH (test code = 4.8-8.0 4820169719) SP GRAVITY (test code = 1.003-1.030 7542021329) GLU U QUAL (test code = 150 mg/dL Normal A 4678970871) BLOOD (test code = Negative Negative 5129310619) KETONES (test code = 5 mg/dL Negative A 5214295844) PROTEIN (test code = 30 mg/dL Negative A 2887-8) UROBILIN (test code = Normal Normal 7482770119) BILIRUBIN (test code = Negative Negative 0800379830) NITRITE (test code = Negative Negative 7074289563) LEUK RANDY (test code = Negative Negative 4985674747) RBC/HPF (test code = <1 See_Comment [Autom ated message] 0760061220) The system [employer] generated this result transmit tyree reference range : 0 - 3 HPF. The refe rence range was not u sed to interpret th is result as normal/abnormal . WBC/HPF (test code = See_Comment [Autom ated message] 2417409995) The system [employer] generated this result transmit tyree reference range : 0 - 5 HPF. The refe rence range was not u sed to interpret th is result as normal/abnormal . BACTERIA (test code = Negative Negative 2490464458) SQ EPITH (test code = <1 HPF 5135323580) Lab Interpretation (test Abnormal code = 00739-5) [facility] CenterTroponin [id number] 20:18:00 Test Item Value Reference Range Interpretation Comments TROPONIN I (test 0.009 ng/mL See_Comment [Automated code = 5669832771) message] The system which generated this result [...] ? Lab Interpretation Normal (test code = 40076-3) [facility] CenterBasi Metabolic Panel (NA, K, CL, CO2, GLUCOSE, BUN, CREATININE, CA)2020-02-02 20:07:00 Test Item Value Reference Range Interpretation Comments NA (test code = 136 mmol/L 135-145 9014140084) K (test code = 3.6 mmol/L 3.5-5 9170707363) CL (test code = 94 mmol/L 98-108 L 7694052928) CO2 TOTAL (test code = 31 mmol/L 23-31 6014827937) AGAP (test code = 2-16 7663596934) BUN (test code = 34 mg/dL 7-23 H 8946197495) GLUCOSE (test code = 226 mg/dL 70-110 H 2790337208) CREATININE (test code = 1.71 mg/dL 0.6-1.25 H 6221662640) CALCIUM (test code = 9.0 mg/dL 8.6-10.6 6850559266) eGFR Calculation mL/min/1.73m2 (Non-) (test code = 9214673988) eGFR Calculation mL/min/1.73m2 () (test code = 3682543297) TOM (test code = TOM) Association of [...] tests). Lab Interpretation Abnormal (test code = 45135-9) [facility] CenterHepatic Function Panel (ALB, T.PRO, BILI T, BU/BC, ALT, AST, ALK PHOS)2020-02-02 20:07:00 Test Item Value Reference Range Interpretation Comments TOTAL BILI (test code = 4071213916) 0.5 mg/dL 0.1-1.1 BILI UNCON (test code = 9458436750) 0.2 mg/dL 0.1-1.1 BILI CONJ (test code = 3069993750) 0.0 mg/dL 0-0.3 T PROTEIN (test code = 9878378145) 8.0 g/dL 6.3-8.2 ALBUMIN (test code = 7853336683) 4.6 g/dL 3.5-5 ALK PHOS (test code = 9664142954) 54 U/L 34-122 ALTv (test code = 1742-6) 22 U/L 5-50 AST(SGOT) (test code = 6348596730) 27 U/L 13-40 Lab Interpretation (test code = Normal 03806-3) [facility] CenterLipase [id number] 20:07:00 Test Item Value Reference Range Interpretation Comments LIPASE (test code = 8885668978) 116 U/L 0-220 Lab Interpretation (test code = Normal 27735-6) [facility] CenterCBC WITH [id number] 19:46:00 Test Item Value Reference Range Interpretation Comments WBC (test code = See_Comment H [Automated 1090-2) message] The sy stem which generated this result transmitted reference range : 4.20 - 10.70 10*3/?L. The reference range was not used to interpret this result as normal/abnormal . RBC (test code = See_Comment L [Automated 139-8) message] The sy stem which generated this [...] RDW-SD (test code = 42.5 fL 38.5-51.6 83715-4) RDW-CV (test code = 12.2 % 12.1-15.4 788-0) PLT (test code = See_Comment [Automated 777-3) message] The sy stem which generated this result transmitted reference range : 150 - 328 10*3/ ?L. The reference r venus was not used to interpret this result as normal/abnormal . MPV (test code = 9.9 fL 9.8-13 63245-0) NRBC/100 WBC (test See_Comment [Automat ed code = 5845183188) message] The system which generated this result transmitted reference range : 0.0 - 10.0 /100 WBCs. The refer ence range was not u sed to interpret th is result as normal/abnormal . NRBC x10^3 (test code <0.01 See_Comment [Auto mated = 4579927076) message] The s ystem which generated this result transmitted reference range : 10*3/?L. The reference range was not used to interpret this result as normal/abnormal . GRAN MAT (NEUT) % 79.5 % (test code = 770-8) IMM GRAN % (test code 0.30 % = 5373752361) LYMPH % (test code = 13.5 % 736-9) MONO % (test code = 5.8 % 5905-5) EOS % (test code = 0.6 % 713-8) BASO % (test code = 0.3 % 706-2) GRAN MAT x10^3(ANC) 9.23 10*3/uL 1.99-6.95 H (test code = 5420541704) IMM GRAN x10^3 (test 0.04 10*3/uL 0-0.06 code = 6713334393) LYMPH x10^3 (test code 1.57 10*3/uL 1.09-3.23 = 731-0) MONO x10^3 (test code 0.68 10*3/uL 0.36-1.02 = 742-7) EOS x10^3 (test code = 0.07 10*3/uL 0.06-0.53 711-2) BASO x10^3 (test code 0.04 10*3/uL 0.01-0.09 = 704-7) Lab Interpretation Abnormal (test code = 51267-8) [facility])2020-02-02 18:55:00 Test Item Value Reference Range Interpretation Comments POCT GLU (test code = 3402793306) 246 mg/dL 70-110 H Lab Interpretation (test code = Abnormal 18076-4) [facility]"
[2023-06-19 12:36] LABS: Hematocrit 43.1 % (39.6-49.0); MCV 95.2 fL (80-100); RBC Red Blood Cell Count 4.53 M/uL (4.33-5.43)
[2023-06-19 12:37] LABS: Absolute Lymphocytes (CBC) 1.8 K/uL (0.7-4.9); Lymphocytes % 7.9 % (15.3-44.8); MPV 8.7 fL (7.6-11.3); Platelets 303 thou/uL (152-406); Protime INR 1.04
[2023-06-19] MEDS ORDERED: CEFTRIAXONE 1000 MG/VIAL ONE (12:39)
[2023-06-19] MEDS ORDERED: FAMOTIDINE 20 MG/2 ML VIAL IV ONE (12:39)
[2023-06-19] MEDS ORDERED: ONDANSETRON 4 MG/2 ML VIAL ONE ×2 (12:39→12:41)
[2023-06-19] MEDS ORDERED: NA CHLORIDE 0.9% 2,000 ML ONE (12:39)
[2023-06-19 12:54] LABS: Albumin 3.9 g/dL (3.4-5.0); Bilirubin Direct 0.2 mg/dL (0-0.2); Bilirubin Indirect, Calculated 0.5 mg/dL (0.2-0.8); Bilirubin Total 0.7 mg/dL (0.2-1.0); Magnesium 1.7 mg/dL (1.6-2.4); Potassium 3.3 mEq/L (3.5-5.1); Protein, Total 8.1 g/dL (6.4-8.2)
[2023-06-19 12:59] LABS: Troponin High Sensitivity 60.9 pg/mL (<58.9)
[2023-06-19 13:25] LABS: Platelet Estimate ADEQ
[2023-06-19 13:26] LABS: Blood Morphology Comment NOTED (NOT SEEN); Stomatocytes 1+
[2023-06-19] MEDS ORDERED: NA CHLORIDE 0.9% 1,000 ML ONE (13:53)
[2023-06-19] MEDS ORDERED: NA CHLORIDE 0.9% 250 ML ONE (13:53)
[2023-06-19] MEDS ORDERED: ACETAMINOPHEN 500 MG TAB ONE (13:53)
[2023-06-19] MEDS ORDERED: AZITHROMYCIN 500 MG INJ IVPB ONE (13:53)
--- NOTE | 2023-06-19 13:56 | RAD REPORT ---
EXAM DESCRIPTION: Sangeeta Single View06/19/2023 12:37 pm CLINICAL HISTORY: cough COMPARISON: 2019 FINDINGS: The lungs appear clear of acute infiltrate. The heart is normal size IMPRESSION: No acute abnormalities displayed
--- NOTE | 2023-06-19 13:56 | RAD REPORT ---
EXAM DESCRIPTION: CT - Chest Abd Pelvis Wo Con - 06/19/2023 1:22 pm CLINICAL HISTORY: Congestion and abdominal pain COMPARISON: 2020 TECHNIQUE: Computed axial tomography of the chest, abdomen and pelvis was obtained. Oral contrast wa s given. IV contrast was not requested. All CT scans are performed using dose optimization technique as appropriate and may include automated exposure control or mA/KV adjustment according to patient size. FINDINGS: The evaluation of mediastinum, guillermo, vessels and solid organs is limited secondary to the lack of IV contrast administration The lungs are clear No mediastinal or hilar lymphadenopathy is seen. A pleural effusion is not present. A pericardial effusion is not seen. The liver, spleen, pancreas, adrenals and kidneys appear grossly normal There is no evidence of diverticulitis. Normal appendix Mild dilatation of a loop of jejunum which is fluid-filled Thickening of the wall of the mid and distal esophagus Small left and small to moderate right inguinal hernias contain fat IMPRESSION: Thickening of the wall of the mid and distal esophagus may indicate an esophagitis Mild dilatation of a fluid-filled loop of jejunum may indicate an enteritis
--- NOTE | 2023-06-19 14:07 | ER ---
Nurse's Notes [facility] Name: Zaid Chiang Age: 52 yrs Sex: Male : 1970 Arrival Date: 06/19/2023 Time: 11:36 Bed 5 Private MD: Diagnosis: Acute kidney failure, unspecified-ON CHRONIC;Hypokalemia;Fever, unspecified;Elevated white blood cell count;Vomiting;Other viral enteritis;Type 2 diabetes mellitus with hyperglycemia;Abnormal levels of other serum enzymes-ELEVATED TROPONIN Presentation: 06/19 11:45 Chief complaint: Patient states: nausea, vomiting since yesterday, can't keep down iw water, started midnight Sunday. Coronavirus screen: Client presents with at least one sign or symptom that may indicate coronavirus-19. Ebola Screen: Patient negative for fever greater than or equal to 101.5 degrees Fahrenheit, and additional compatible Ebola Virus Disease symptoms Patient denies exposure to infectious person. Patient denies travel to an Ebola-affected area in the 21 days before illness onset. No symptoms or risks identified at this time. Initial Sepsis Screen: Does the patient meet any 2 criteria? No. Patient's initial sepsis screen is negative. Does the patient have a suspected source of infection? No. Patient's initial sepsis screen is negative. Risk Assessment: Do you want to hurt yourself or someone else? Patient reports no desire to harm self or others. Onset of symptoms was June 17, 2023. 11:45 Method Of Arrival: Ambulatory iw 11:45 Acuity: KATHLEEN 3 iw Historical: - Allergies: 11:46 No Known Allergies; iw - PMHx: 11:46 Diabetes - NIDDM; Hypertension; iw - PSHx: 11:46 left foot; iw - Immunization history:: Client reports receiving the 2nd dose of the Covid vaccine. - Social history:: Smoking status: Patient denies any tobacco usage or history of. Screenin:00 [facility] [place] ED Fall Risk Assessment (Adult) History of falling in the last 3 months, aa5 including since admission No falls in past 3 months (0 pts) Confusion or Disorientation No (0 pts) Intoxicated or Sedated No (0 pts) Impaired Gait No (0 pts) Mobility Assist Device Used No (0 pt) Altered Elimination No (0 pt) Score/Fall Risk Level 0 - 2 = Low Risk Oriented to surroundings, Maintained a safe environment, Educated pt \\T\\ family on fall prevention, incl call for assistance when getting out of bed. Abuse screen: Denies threats or abuse. Nutritional screening: No deficits noted. Tuberculosis screening: No symptoms or risk factors identified. Assessment: 12:00 General: Appears uncomfortable, Behavior is calm, cooperative. Pain: Denies pain. aa5 Neuro: Level of Consciousness is awake, alert, obeys commands, Oriented to person, place, time, situation. Cardiovascular: Heart tones S1 S2 present Rhythm is regular. Respiratory: Airway is patent Respiratory effort is even, unlabored, Respiratory pattern is regular, symmetrical, Breath sounds are clear bilaterally. GI: Abdomen is round non-distended, Bowel sounds present X 4 quads. Abd is soft and non tender X 4 quads. Reports nausea, vomiting. : No signs and/or symptoms were reported regarding the genitourinary system. EENT: Reports hoarse voice, pt states "I think it's just from the vomiting and dry heaving" . Derm: Skin is moist, Skin is red, Skin temperature is warm. Musculoskeletal: Range of motion: intact in all extremities. 12:45 Reassessment: Patient is alert, oriented x 3, equal unlabored respirations, skin aa5 warm/dry/pink. 13:52 Reassessment: Patient is alert, oriented x 3, equal unlabored respirations, skin aa5 warm/dry/pink. Pt c/o nausea, MD notified. . 13:52 General: Appears comfortable, Behavior is calm, cooperative. aa5 15:45 Reassessment: Patient is alert, oriented x 3, equal unlabored respirations, skin aa5 warm/dry/pink. Vital Signs: 11:45 BP 109 / 70; Pulse 122; Resp 18; Temp 97.1; Pulse Ox 98% ; Weight 99.34 kg; Height 5 iw ft. 10 in. ; Pain 0/10; 12:45 BP 110 / 71; Pulse 114; Resp 22 S; Temp 99.6(O); Pulse Ox 96% on R/A; aa5 14:28 BP 120 / 76; Pulse 109; Resp 19 S; Temp 98.8(O); Pulse Ox 97% on R/A; aa5 15:45 BP 111 / 69; Pulse 115; Resp 15 S; Temp 98.5(O); Pulse Ox 97% on R/A; aa5 11:45 Body Mass Index 31.42 (99.34 kg, 177.8 cm) iw 11:45 Pain Scale: Adult iw ED Course: 11:36 Patient arrived in ED. am2 11:38 Sravan Kelly MD is Attending Physician. vivi 11:46 Triage completed. iw 11:51 Belle Yu, RN is Primary Nurse. aa5 12:00 Patient has correct armband on for positive identification. Placed in gown. Bed in low aa5 position. Call light in reach. Side rails up X2. Client placed on continuous cardiac and pulse oximetry monitoring. NIBP monitoring applied. 12:15 Initial lab(s) drawn, by me, sent to lab. Inserted saline lock: 20 gauge in right aa5 antecubital area, using aseptic technique. Blood collected. 12:15 First set of blood cultures drawn by me. aa5 12:39 XRAY Chest (1 view) In Process Unspecified. EDMS 13:24 Chest Abd Pelvis Wo Con In Process Unspecified. EDMS 14:02 Shoaib Blanton MD is Hospitalizing Provider. vivi 15:45 No provider procedures requiring assistance completed. Patient admitted, IV remains in aa5 place. Administered Medications: 12:30 Drug: NS 0.9% IV 1000 ml Route: IV; Rate: 1 bolus; Site: right antecubital; aa5 14:25 Follow up: IV Status: Completed infusion; IV Intake: 1000ml aa5 12:30 Drug: Ondansetron IVP 8 mg Route: IVP; Site: right antecubital; aa5 12:35 Follow up: Response: No adverse reaction aa5 12:32 Drug: Famotidine IVP 20 mg Route: IVP; Site: right antecubital; aa5 12:40 Follow up: Response: No adverse reaction aa5 12:39 Drug: NS 0.9% IV 1000 ml Route: IV; Rate: 1 bolus; Site: right antecubital; aa5 14:25 Follow up: IV Status: Completed infusion; IV Intake: 1000ml aa5 13:30 Drug: Rocephin IV 1 grams Route: IV; Rate: per protocol; Site: right antecubital; aa5 13:52 Drug: Zithromax IVPB 500 mg Route: IVPB; Infused Over: 1 hrs; Site: right antecubital; aa5 14:28 Follow up: Response: No adverse reaction aa5 14:52 Follow up: Response: No adverse reaction; IV Status: Completed infusion aa5 13:52 Drug: NS 0.9% IV 1000 ml Route: IV; Rate: 1 bolus; Site: right antecubital; aa5 16:00 Follow up: IV Status: Completed infusion; IV Intake: 1000ml aa5 13:52 Drug: Acetaminophen PO 1000 mg Route: PO; aa5 14:28 Follow up: Response: No adverse reaction; Temperature is decreased aa5 14:25 Drug: Solu-CORTEF IVP 100 mg Route: IVP; Site: right antecubital; aa5 14:45 Follow up: Response: No adverse reaction aa5 14:27 Drug: Promethazine IVP 12.5 mg Route: IVP; Site: right antecubital; aa5 14:45 Follow up: Response: No adverse reaction aa5 15:41 Drug: NS 0.9% with KCl IV 20 mEq/L 1000 ml Route: IV; Rate: 125 ml/hr; Site: right aa5 antecubital; 16:00 Follow up: IV Status: Infusion continued upon admission aa5 15:41 Drug: Promethazine IM 25 mg Route: IM; Site: right gluteus; aa5 16:00 Follow up: Response: No adverse reaction aa5 Medication: 16:00 VIS not applicable for this client. aa5 Intake: 14:25 IV: 1000ml; Total: 1000ml. aa5 14:25 IV: 1000ml; Total: 2000ml. aa5 16:00 IV: 1000ml; Total: 3000ml. aa5 Outcome: 14:07 Decision to Hospitalize by Provider. vivi 16:00 Admitted to Med/surg accompanied by tech, via stretcher, with chart, Report called to aaBelen Sharp RN at [id number] 16:00 Condition: stable 16:00 Instructed on the need for admit, Demonstrated understanding of instructions. 16:05 Patient left the ED. iw Signatures: Dispatcher [employer] EDMT Sravan Kelly MD MD cha Williams, Irene, RN RN Belle Yu RN RN sommer5 [place] Plasencia am2 Corrections: (The following items were deleted from the chart) 11:46 11:45 Resp 18bpm; Pulse Ox 98%; Temp 97.1F; 99.34 kg; Height 5 ft. 10 in.; BMI: 31.4; iw Pain 0/10, Adult; iw 14:35 14:28 Temp 98.8F Oral; aa5 aa5 15:14 14:10 Reassessment: Patient is alert, oriented x 3, equal unlabored respirations, skin aa5 warm/dry/pink. Pt c/o nausea, MD notified. . aa5 15: 13:00 Reassessment: Patient is alert, oriented x 3, equal unlabored respirations, skin aa5 warm/dry/pink. aa5 16:15 15:45 Temp 98.5F Oral; aa5 aa5
--- NOTE | 2023-06-19 14:07 | EDPHYS ---
Physician Documentation [facility] Name: Zaid Chiang Age: 52 yrs Sex: Male : 1970 Arrival Date: 06/19/2023 Time: 11:36 Bed 5 Private MD: JINNY Physician Sravan Kelly HPI: 06/19 11:57 This 52 yrs old Male presents to ER via Ambulatory with complaints of Nausea, vivi hoarse voice. 11:57 The patient presents to the emergency department with nausea, vomiting, that is vivi continuous. Onset: The symptoms/episode began/occurred 2 day(s) ago. Possible causes: unknown. The symptoms are aggravated by nothing. The symptoms are alleviated by remaining still. Associated signs and symptoms: Pertinent positives: abdominal pain, nausea, vomiting. Severity of symptoms: At their worst the symptoms were moderate in the emergency department the symptoms are unchanged. Historical: - Allergies: 11:46 No Known Allergies; iw - PMHx: 11:46 Diabetes - NIDDM; Hypertension; iw - PSHx: 11:46 left foot; iw - Immunization history:: Client reports receiving the 2nd dose of the Covid vaccine. - Social history:: Smoking status: Patient denies any tobacco usage or history of. ROS: 11:59 Constitutional: Negative for fever, chills, and weight loss, Eyes: Negative for injury, vivi pain, redness, and discharge, ENT: Negative for injury, pain, and discharge, Neck: Negative for injury, pain, and swelling, Cardiovascular: Negative for chest pain, palpitations, and edema, Back: Negative for injury and pain, : Negative for injury, bleeding, discharge, and swelling, MS/Extremity: Negative for injury and deformity, Skin: Negative for injury, rash, and discoloration, Neuro: Negative for headache, weakness, numbness, tingling, and seizure, Psych: Negative for depression, anxiety, suicide ideation, homicidal ideation, and hallucinations, Allergy/Immunology: Negative for hives, rash, and allergies, Endocrine: Negative for neck swelling, polydipsia, polyuria, polyphagia, and marked weight changes. 11:59 ENT: Positive for hoarseness. 11:59 Respiratory: Positive for cough, with no reported sputum. 11:59 Abdomen/GI: Positive for nausea and vomiting, abdominal distension. Exam: 11:59 Constitutional: This is a well developed, well nourished patient who is awake, alert, vivi and in no acute distress. Head/Face: Normocephalic, atraumatic. Eyes: Pupils equal round and reactive to light, extra-ocular motions intact. Lids and lashes normal. Conjunctiva and sclera are non-icteric and not injected. Cornea within normal limits. Periorbital areas with no swelling, redness, or edema. ENT: Nares patent. No nasal discharge, no septal abnormalities noted. Tympanic membranes are normal and external auditory canals are clear. Oropharynx with no redness, swelling, or masses, exudates, or evidence of obstruction, uvula midline. Mucous membranes moist. Neck: Trachea midline, no thyromegaly or masses palpated, and no cervical lymphadenopathy. Supple, full range of motion without nuchal rigidity, or vertebral point tenderness. No Meningismus. Chest/axilla: Normal chest wall appearance and motion. Nontender with no deformity. No lesions are appreciated. Respiratory: Lungs have equal breath sounds bilaterally, clear to auscultation and percussion. No rales, rhonchi or wheezes noted. No increased work of breathing, no retractions or nasal flaring. Back: No spinal tenderness. No costovertebral tenderness. Full range of motion. Male : Normal genitalia with no discharge or lesions. Skin: Warm, dry with normal turgor. Normal color with no rashes, no lesions, and no evidence of cellulitis. MS/ Extremity: Pulses equal, no cyanosis. Neurovascular intact. Full, normal range of motion. Neuro: Awake and alert, GCS 15, oriented to person, place, time, and situation. Cranial nerves II-XII grossly intact. Motor strength 5/5 in all extremities. Sensory grossly intact. Cerebellar exam normal. Normal gait. Psych: Awake, alert, with orientation to person, place and time. Behavior, mood, and affect are within normal limits. 11:59 Cardiovascular: Rate: tachycardic, actual rate is 122 bpm, Rhythm: regular, Pulses: Pulses are 4+ in bilateral radial, brachial, femoral, popliteal, posterior tibial and and dorsalis pedis arteries.. Heart sounds: normal. 11:59 Respiratory: the patient does not display signs of respiratory distress, Respirations: normal, Breath sounds: are clear throughout, no bronchial sounds, no decreased breath sounds, no rales, rhonchi, no stridor, no wheezing, Respiratory rate: 18 14:11 ECG was reviewed by the Attending Physician. [facility] Vital Signs: 11:45 BP 109 / 70; Pulse 122; Resp 18; Temp 97.1; Pulse Ox 98% ; Weight 99.34 kg; Height 5 iw ft. 10 in. ; Pain 0/10; 12:45 BP 110 / 71; Pulse 114; Resp 22 S; Temp 99.6(O); Pulse Ox 96% on R/A; aa5 14:28 BP 120 / 76; Pulse 109; Resp 19 S; Temp 98.8(O); Pulse Ox 97% on R/A; aa5 15:45 BP 111 / 69; Pulse 115; Resp 15 S; Temp 98.5(O); Pulse Ox 97% on R/A; aa5 11:45 Body Mass Index 31.42 (99.34 kg, 177.8 cm) iw 11:45 Pain Scale: Adult iw MDM: 11:39 Patient medically screened. [facility] 12:00 Differential diagnosis: Nonspecific abd pain, gastritis, viral gastroenteritis, vivi gastroenteritis. Data reviewed: vital signs, nurses notes, radiologic studies, CT scan, plain films. Consideration of Admission/Observation Patient was admitted/placed on observation. Escalation of care including admission/observation considered. I considered the following discharge prescriptions or medication management in the emergency department Medications were administered in the Emergency Department. See MAR. Independent interpretation of the following test(s) in the Emergency Department EKG: See my EKG interpretation above. Test considered but Not performed: Ultrasound no gb us. Care significantly affected by the following chronic conditions: Diabetes, Hypertension, Obesity. Counseling: I had a detailed discussion with the patient and/or guardian regarding: the historical points, exam findings, and any diagnostic results supporting the discharge/admit diagnosis, lab results, radiology results. 06/19 11:57 Order name: Basic Metabolic Panel; Complete Time: 13:21 [facility] 06/19 11:57 Order name: CBC with Diff; Complete Time: 13:27 [facility] 06/19 11:57 Order name: LFT's; Complete Time: 13:21 [facility] 06/19 11:57 Order name: Magnesium; Complete Time: 13:21 [facility] 06/19 11:57 Order name: NT PRO-BNP; Complete Time: 13:21 [facility] 06/19 11:57 Order name: PT-INR; Complete Time: 12:43 [facility] 06/19 11:57 Order name: Troponin HS; Complete Time: 13:21 [facility] 06/19 11:57 Order name: Lipase; Complete Time: 13:21 [facility] 06/19 11:57 Order name: COVID-19 SARS RT PCR; Complete Time: 13:21 [facility] 06/19 11:57 Order name: Flu; Complete Time: 13:21 [facility] 06/19 11:57 Order name: Blood Culture Adult (2) [facility] 06/19 11:57 Order name: Lactate w/ 2H reflex if indic.; Complete Time: 13:21 [facility] 06/19 11:57 Order name: Strep [facility] 06/19 12:40 Order name: Manual Differential; Complete Time: 13:27 [facility] 06/19 13:02 Order name: Throat Culture [facility] 06/19 13:22 Order name: ABG [facility] 06/19 13:23 Order name: Urinalysis w/ reflexes [facility] 06/19 11:57 Order name: XRAY Chest (1 view); Complete Time: 14:00 [facility] 06/19 13:16 Order name: Chest Abd Pelvis Wo Con; Complete Time: 14:00 [facility] 06/19 11:57 Order name: EKG; Complete Time: 11:58 [facility] 06/19 11:57 Order name: Cardiac monitoring; Complete Time: 12:19 [facility] 06/19 11:57 Order name: EKG - Nurse/Tech; Complete Time: 12:19 [facility] 06/19 11:57 Order name: IV Saline Lock; Complete Time: 12:19 [facility] 06/19 11:57 Order name: Labs collected and sent; Complete Time: 12:19 [facility] 06/19 11:57 Order name: O2 Per Protocol; Complete Time: 12:19 [facility] 06/19 11:57 Order name: O2 Sat Monitoring; Complete Time: 12:19 [facility] EC:11 Rate is 117 beats/min. Rhythm is regular. QRS [place] is Normal. MT interval is normal. [facility] QRS interval is normal. QT interval is normal. No Q waves. T waves are Normal. No ST changes noted. Clinical impression: Sinus tachycardia and No evidence of ischemia. Interpreted by me. Reviewed by me. Administered Medications: 12:30 Drug: NS 0.9% IV 1000 ml Route: IV; Rate: 1 bolus; Site: right antecubital; aa5 14:25 Follow up: IV Status: Completed infusion; IV Intake: 1000ml aa5 12:30 Drug: Ondansetron IVP 8 mg Route: IVP; Site: right antecubital; aa5 12:35 Follow up: Response: No adverse reaction aa5 12:32 Drug: Famotidine IVP 20 mg Route: IVP; Site: right antecubital; aa5 12:40 Follow up: Response: No adverse reaction aa5 12:39 Drug: NS 0.9% IV 1000 ml Route: IV; Rate: 1 bolus; Site: right antecubital; aa5 14:25 Follow up: IV Status: Completed infusion; IV Intake: 1000ml aa5 13:30 Drug: Rocephin IV 1 grams Route: IV; Rate: per protocol; Site: right antecubital; aa5 13:52 Drug: Zithromax IVPB 500 mg Route: IVPB; Infused Over: 1 hrs; Site: right antecubital; aa5 14:28 Follow up: Response: No adverse reaction aa5 14:52 Follow up: Response: No adverse reaction; IV Status: Completed infusion aa5 13:52 Drug: NS 0.9% IV 1000 ml Route: IV; Rate: 1 bolus; Site: right antecubital; aa5 16:00 Follow up: IV Status: Completed infusion; IV Intake: 1000ml aa5 13:52 Drug: Acetaminophen PO 1000 mg Route: PO; aa5 14:28 Follow up: Response: No adverse reaction; Temperature is decreased aa5 14:25 Drug: Solu-CORTEF IVP 100 mg Route: IVP; Site: right antecubital; aa5 14:45 Follow up: Response: No adverse reaction aa5 14:27 Drug: Promethazine IVP 12.5 mg Route: IVP; Site: right antecubital; aa5 14:45 Follow up: Response: No adverse reaction aa5 15:41 Drug: NS 0.9% with KCl IV 20 mEq/L 1000 ml Route: IV; Rate: 125 ml/hr; Site: right aa5 antecubital; 16:00 Follow up: IV Status: Infusion continued upon admission aa5 15:41 Drug: Promethazine IM 25 mg Route: IM; Site: right gluteus; aa5 16:00 Follow up: Response: No adverse reaction aa5 Disposition Summary: 06/19/23 14:07 Hospitalization Ordered Hospitalization Status: Inpatient Admission vivi Provider: Shoaib Blanton cha Location: Telemetry/MedSurg (Inpatient) vivi Condition: Fair vivi Problem: new vivi Symptoms: have improved vivi Bed/Room Type: Standard vivi Room Assignment: 231(06/19/23 15:20) bd Diagnosis - Acute kidney failure, unspecified - ON CHRONIC vivi - Hypokalemia vivi - Fever, unspecified vivi - Elevated white blood cell count vivi - Vomiting vivi - Other viral enteritis vivi - Type 2 diabetes mellitus with hyperglycemia vivi - Abnormal levels of other serum enzymes - ELEVATED TROPONIN vivi Forms: - Medication Reconciliation Form vivi - SBAR form vivi Signatures: Dispatcher [employer] EDMS Carly Cabrera Corey, MD MD cha Williams, Irene, RN RN iw Belle Yu RN RN aa5 Corrections: (The following items were deleted from the chart) 13:16 11:58 Chest Abdomen Pelvis W Con+CT.RAD.BRZ ordered. EDMS EDMS 15:20 14:07 vivi bd
[2023-06-19 14:23] LABS: Blood O2 Saturation 97.4 % (92-98.5)
[2023-06-19 14:24] LABS: Arterial Blood Carboxyhemoglob 1.1 % (0-1.5)
[2023-06-19] MEDS ORDERED: PROMETHAZINE INJ 25 MG/ML AMP ONE ×2 (14:30→15:43)
[2023-06-19] MEDS ORDERED: HYDROCORTISONE SUC 100 MG INJ ONE (14:30)
[2023-06-19] MEDS ORDERED: NS KCL 20MEQ 1,000 ML IV ONE (14:30)
[2023-06-19] MEDS ORDERED: ACETAMINOPHEN 325 MG TABLET PO PRN (15:09)
[2023-06-19] MEDS ORDERED: SODIUM CHLORIDE 0.9% 10ML INJ IV PRN (15:27)
--- NOTE | 2023-06-19 15:28 | P.HP ---
Certification for Inpatient Patient admitted to: Inpatient With expected LOS: >2 Midnights Patient will require the following post-hospital care: None Practitioner: I am a practitioner with admitting privileges, knowledge of patient current condition, hospital course, and medical plan of care. Services: Services provided to patient in accordance with Admission requirements found in Title 42 Section 412.3 of the Code of Federal Regulations Patient History Date of Service: 06/19/23 Reason for admission: Nausea, vomiting and abdominal pain. History of Present Illness: Patient is a 52-year-old male with a past medical history significant for DM 2, hypertension, anxiety disorder who presents with complaint of nausea and vomiting onset yesterday. Patient also reports lower quadrants abdominal pain rated as 8/10 in severity and described as dull in quality. Patient reported associated signs and symptoms of diaphoresis, hoarse voice and chills. Patient denies any other signs and symptoms. Symptoms are aggravated or relieved by nothing. Patient decided to present to the hospital due to worsening symptoms. Allergies No Known Allergies Allergy (Verified 12/10/22 21:28) Home Medications: Carvedilol [Coreg] 12.5 mg PO BID 12/10/22 Gabapentin [Neurontin*] 100 mg PO BID 12/10/22 Metformin ER [Glucophage ER*] 500 mg PO BID 12/10/22 Semaglutide [Ozempic] 0.5 mg SQ MO 12/10/22 diazePAM [Diazepam] 10 mg PO BEDTIME PRN 12/10/22 Cetirizine HCl 10 mg PO DAILY 06/19/23 Glimepiride [Amaryl] 4 mg PO DAILY 06/19/23 Insulin Glargine,Hum.rec.anlog [Lantus] 20 unit SQ BEDTIME PRN 06/19/23 - Past Medical/Surgical History Diabetic: Yes -: IDDM -: HTN -: Anxiety disorder -: Left foot surgery-w/rods placed - Family History Father -: Stroke Mother -: Hypertension, Diabetes - Social History Smoking Status: Former smoker Alcohol use: Yes CD- Drugs: No Caffeine use: Yes Place of Residence: Home Review of Systems General: Chills, Sweats Eyes: Unremarkable ENT: Other (Hoarse voice) Respiratory: Unremarkable Cardiovascular: Unremarkable Gastrointestinal: Nausea, Vomiting, Abdominal Pain Genitourinary: Unremarkable Musculoskeletal: Unremarkable Integumentary: Unremarkable Neurological: Unremarkable Lymphatics: Unremarkable Physical Examination - Physical Exam General: Alert, In no apparent distress, Oriented x3, Cooperative HEENT: Atraumatic, PERRLA, Mucous membr. moist/pink, EOMI, Sclerae nonicteric Neck: Supple, 2+ carotid pulse no bruit, No LAD, Without JVD or thyroid abnormality Respiratory: Clear to auscultation bilaterally, Normal air movement Cardiovascular: No edema, Regular rate/rhythm, Normal S1 S2 Capillary refill: <2 Seconds Gastrointestinal: Normal bowel sounds, Tenderness Musculoskeletal: No clubbing, No swelling, No tenderness Integumentary: No rashes, No significant lesion Neurological: Normal speech, Normal tone, Normal affect Lymphatics: No axilla or inguinal lymphadenopathy - Studies Laboratory Data (last 24 hrs) 06/19/23 06/19/23 06/19/23 12:15 12:15 12:15 WBC 22.80 H Hgb 14.6 Hct 43.1 Plt Count 303 PT 11.4 INR 1.04 Sodium 129 L Potassium 3.3 L BUN 29 H Creatinine 2.57 H Glucose 374 H Magnesium 1.7 Total Bilirubin 0.7 AST 17 ALT 21 Alkaline Phosphatase 56 Lipase 16 Microbiology Data (last 24 hrs): 06/19/23 12:24 Throat Group A Streptococcus Rapid Screen - Final 06/19/23 12:24 Nasopharnyx Influenza Type A Antigen Screen - Final 06/19/23 12:24 Nasopharnyx Influenza Type B Antigen Screen - Final Assessment and Plan - Plan --Enteritis. CT imaging indicates Mild dilatation of a fluid-filled loop of jejunum may indicate an enteritis. Patient placed on antibiotics and IV hydration. Continue supportive care. --Nausea and vomiting. Antiemetics on board. Continue IV hydration. --Esophagitis. CT imaging indicates Thickening of the wall of the mid and distal esophagus may indicate an esophagitis. Patient placed on Protonix. --DM2 with hyperglycemia and neuropathy. BS monitoring with sliding scale insulin and Lantus. Continue gabapentin for his neuropathy. -- Hypertension. Stable. Continue home medication. --Anxiety disorder. Continue diazepam. --Elevated troponin. Likely secondary to demand ischemia. Levels trending down. Continue supportive care. --Hypokalemia. Replete as needed. --Leukocytosis. Likely secondary to enteritis. Blood cultures pending. Continue antibiotics. We will continue to monitor WBC levels. --DVT prophylaxis with Lovenox subQ. Discharge Plan: Home Plan to discharge in: Greater than 2 days - Advance Directives Does patient have a Living Will: No Does patient have a Durable POA for Healthcare: No - Code Status/Comfort Care Code Status Assessed: Yes Physician Review: Patient Assessed, Agree with Above Assessment and Plan Critical Care: No
[2023-06-19] MEDS: NA CHLORIDE 0.9% 1,000 ML IV SCH (17:08)
[2023-06-19] MEDS: METRONIDAZOLE 500mg IVPB 500 MG/100 ML BAG IV SCH (17:08)
[2023-06-19] MEDS: INSULIN -REGULAR HUMAN 50 UNIT/0.5 ML ML SQ SCH ×2 (17:09→20:14)
[2023-06-19] MEDS: ONDANSETRON 4 MG/2 ML VIAL IV PRN (17:49)
[2023-06-19] MEDS ORDERED: INSULIN GLARGINE 100 UNIT/ML SQ PRN (18:41)
[2023-06-19] MEDS ORDERED: DIAZEPAM 10 MG PO PRN (18:41)
[2023-06-19 18:47] LABS: Magnesium 1.6 mg/dL (1.6-2.4); Phosphorus 3.8 mg/dL (2.5-4.9); Thyroid Stimulating Hormone 1.74 uIU/mL (0.358-3.740)
[2023-06-19] MEDS: carvediloL 12.5 MG TAB PO SCH (20:09)
[2023-06-19] MEDS: GABAPENTIN 100 MG CAP PO SCH (20:10)
[2023-06-19] MEDS: DIAZEPAM 5 MG TABLET PO PRN (20:10)
[2023-06-19] MEDS: Ciprofloxacin 200mg IV 200 MG/100 ML IV.SOLN. IV SCH (20:10)
[2023-06-19] MEDS: PROMETHAZINE INJ 25 MG/ML AMP IV PRN (20:48)
[2023-06-20] MEDS: METRONIDAZOLE 500mg IVPB 500 MG/100 ML BAG IV SCH ×3 (00:55→16:32)
[2023-06-20 03:17] LABS: Absolute Lymphocytes (CBC) 1.9 K/uL (0.7-4.9); Hematocrit 34.4 % (39.6-49.0); Lymphocytes % 10.3 % (15.3-44.8); MCV 95.1 fL (80-100); MPV 8.5 fL (7.6-11.3); Platelets 224 thou/uL (152-406); RBC Red Blood Cell Count 3.62 M/uL (4.33-5.43)
[2023-06-20 03:35] LABS: Renal Epithelial <5 /HPF (None Seen); Specific Gravity 1.017 (1.005-1.030); Urine Bacteria None Seen /HPF (<20); Urine Bilirubin NEGATIVE (Negative); Urine Blood Negative (Negative); Urine Clarity Turbid (Clear); Urine Color Light-Yellow (Yellow); Urine Glucose 4+ (Over) (Negative); Urine Mucus Slight /HPF (None Seen); Urine Protein 1+ (Negative); Urine RBC None Seen /HPF (None Seen); Urine Urobilinogen Normal (Normal)
[2023-06-20 03:52] LABS: Magnesium 1.6 mg/dL (1.6-2.4); Phosphorus 2.6 mg/dL (2.5-4.9); Potassium 3.3 mEq/L (3.5-5.1)
[2023-06-20] MEDS: ONDANSETRON 4 MG/2 ML VIAL IV PRN ×2 (04:29→20:39)
[2023-06-20] MEDS ORDERED: MAGNESIUM SULFATE 1 gm IVPB 1 GM/100 ML BAG IV ONE ×2 (05:00→11:42)
[2023-06-20] MEDS: KCL 20 MEQ/100 mL IVPB 20 MEQ/100 ML BAG IV SCH ×2 (05:22→09:12)
[2023-06-20] MEDS: PROMETHAZINE INJ 25 MG/ML AMP IV PRN ×4 (05:22→22:37)
[2023-06-20] MEDS: NA CHLORIDE 0.9% 1,000 ML IV SCH (08:13)
[2023-06-20] MEDS: Ciprofloxacin 200mg IV 200 MG/100 ML IV.SOLN. IV SCH ×2 (08:13→20:41)
[2023-06-20] MEDS: ASPIRIN 81 MG CHEWABLE TABLET PO SCH (08:18)
[2023-06-20] MEDS: carvediloL 12.5 MG TAB PO SCH ×2 (08:18→20:40)
[2023-06-20] MEDS: GABAPENTIN 100 MG CAP PO SCH ×2 (08:18→20:39)
[2023-06-20] MEDS: CETIRIZINE HCL 5 MG TABLET PO SCH (08:18)
[2023-06-20] MEDS: INSULIN -REGULAR HUMAN 50 UNIT/0.5 ML ML SQ SCH ×4 (08:22→20:41)
[2023-06-20] MEDS: ENOXAPARIN 40 MG/0.4 ML SQ SCH (08:22)
[2023-06-20] MEDS ORDERED: HOME MED 1 EA UNK (Cetirizine Hcl [Cetirizine Hcl] 10 MG Tablet) PO SCH (09:00)
[2023-06-20] MEDS ORDERED: PANTOPRAZOLE 40 MG INJ IVP SCH (09:00)
[2023-06-20] MEDS ORDERED: POTASSIUM CL 40 MEQ in NA CHLORIDE 0.9% 500 ML IV SCH (12:00)
[2023-06-20 12:15] LABS: Potassium 3.5 mEq/L (3.5-5.1)
--- NOTE | 2023-06-20 13:33 | CON ---
Date of Consultation: 06/20/2023 Reason For Consultation: Elevation in BUN and creatinine, fluid management. History Of Present Illness: This is a pleasant 52-year-old gentleman, well known to me from the office, last seen back in November 2022. 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 The patient was in his regular state of health until the weekend when he started having diarrhea, nausea and vomiting, could not keep anything down. For that reason, he reported to the hospital. When he arrived to the hospital, the patient found to have elevation in BUN and creatinine, creatinine 2.5 with GFR of 29. For that reason, we have been consulted. The patient denied taking any nonsteroidal, no IV contrast. The patient was started on hydration. Kidney function has been improved. Creatinine down to 1.8, GFR of 44. The patient still has hyponatremia and hypokalemia. Past Medical History: Includes; 1. Diabetes type 2 complicated with neuropathy and Charcot joint. 2. Hypertension. 3. Hyperlipidemia. 4. 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 Baseline creatinine of 1.5 and GFR 51. 5. Anxiety. Home Medications: Include carvedilol, gabapentin, metformin, Ozempic, diazepam, cetrizine, glimepiride, and insulin. Past Surgical History: Includes foot surgery. Family History: Positive for CVA and hypertension and diabetes. Social History: Ex-smoker, active alcohol. Denies drugs abuse. Review of Systems: Head and Neck: Has headache. GI: Has nausea, vomiting, and occasional diarrhea. : No polyuria. No dysuria. No hematuria. Chemical Applicator: Not applicable. Respiratory: No shortness of breath. Cardiovascular: No chest pain. Endocrine: No polydipsia. Skin: No rash. Neuro: Has neuropathy. Musculoskeletal: No joint pain. Physical Examination: General: When I saw the patient; the patient lying in bed. Vital Signs: Blood pressure 146/85, pulse of 110, afebrile. Chest: Clear to auscultation. Heart: S1, S2. Regular. Abdomen: Soft, nontender. Extremity: No edema. Neurological: Alert, oriented x3. No focal. Current Medications: The patient on include diazepam, gabapentin, Tylenol, carvedilol 12.5 b.i.d., Lovenox, cetrizine, promethazine, metronidazole, ciprofloxacin, IV fluid, Zofran, and pantoprazole, tramadol. Assessment And Plan: 1. Acute kidney injury secondary to prerenal secondary to GI loss, on the recovery phase. I am going to continue hydration. The patient looked to me still on the dry side and we will continue symptomatic treatment. 2. Hypertension. Continue current medications. We will follow up. 3. Hyponatremia, depletional. Continue IV hydration with isotonic fluid. 4. Hypokalemia. I will go ahead and supplement antibiotic. We will supplement. Thank you, Dr. Blanton for allowing us to participate in the care of your patient. Time spent examining the patient [id number], reviewing data, lab and radiology, placing order, discussing the case with the athletic team physician including hospitalist and nursing staff more than 65 minutes. MANASA Voice ID: [id number] Report ID: [id number] ELISSA
--- NOTE | 2023-06-20 17:13 | P.PN ---
Subjective Date of Service: 06/20/23 Chief Complaint: Nausea, vomiting and abdominal pain. No acute events overnight. He reports having 2 bowel movements per day for the last 3 days. He states that the stool is "black and tarry." He denies any chest pain, shortness of breath, abdominal pain, and nausea/vomiting. Review of Systems 10-point ROS is otherwise unremarkable Gastrointestinal: Diarrhea, Melena Physical Examination - Vital Signs Temperature: 98.9 F Blood Pressure: 146/85 Pulse: 110 Respirations: 20 Pulse Ox (%): 97 - Physical Exam General: Alert, In no apparent distress, Oriented x3 HEENT: Atraumatic, Mucous membr. moist/pink, Sclerae nonicteric Neck: JVD not distended Respiratory: Clear to auscultation bilaterally, Normal air movement Cardiovascular: No edema, Regular rate/rhythm, Normal S1 S2, No gallops, No rubs, No murmurs Gastrointestinal: Normal bowel sounds, Soft and benign, Non-distended, No tenderness, No rebound, No guarding Musculoskeletal: No clubbing Integumentary: No rashes Neurological: Normal speech, Normal affect - Studies Laboratory Data (last 24 hrs) 06/20/23 06/20/23 06/19/23 02:25 02:25 17:55 WBC 18.40 H Hgb 11.6 L D Hct 34.4 L Plt Count 224 D Sodium 135 L D Potassium 3.3 L BUN 23 H Creatinine 1.84 H Glucose 242 H Phosphorus 2.6 3.8 Magnesium 1.6 1.6 Triglycerides 107 Cholesterol 123 HDL Cholesterol 48 Cholesterol/HDL Ratio 2.56 Microbiology Data (last 24 hrs): 06/19/23 12:24 Throat Group A Streptococcus Rapid Screen - Final 06/19/23 12:24 Nasopharnyx Influenza Type A Antigen Screen - Final 06/19/23 12:24 Nasopharnyx Influenza Type B Antigen Screen - Final Assessment And Plan - Plan # Severe Sepsis likely secondary to Esophagitis and Jejunitis - POA He met sepsis criteria based on HR > 90 bpm, RR > 20 breaths/min, and WBC > 12,000, and the suspected source is esophagitis and jejunitis. Severe sepsis is suspected due to concern for tissue hypoperfusion/organ dysfunction based on creatinine >2.0 (without ESRD) and lactic acid > 2 mmol/L. - Chest x-ray = "no acute abnormalities displayed." - CT chest/abdomen/pelvis = "thickening of the wall of the mid and distal esophagus may indicate an esophagitis. Mild dilatation of a fluid-filled loop of jejunum may indicate an enteritis" - Sepsis order set was initiated - Lactate: 2.6 -> 2.0 - Blood cultures drawn - Broad spectrum antibiotics started: Ciprofloxacin + Metronidazole - In regards to fluids: - 30 mL/kg of IV fluids was not administered given SBP > 90, MAP > 65, lactic acid < 4 # Concern for Acute Blood Loss Anemia suspect due to Acute Upper Gastrointestinal Bleed - Gastroenterology unavailable at our facility - Spoke with Dr. Perry (General Surgery), who is willing to address his endoscopic needs - Serial H&H - Transfuse for Hgb < 7.0 - 2 large bore IVs - Continue antibiotics as mentioned above - Pantoprazole 40 mg IV BID # KDIGO Stage I Acute Kidney Injury on Chronic Kidney Disease Stage III - Nephrology consulted - recommendations appreciated - Creatinine = 2.57 -> 1.84 -> 1.67 (creatinine was 1.58 on 12/11/2022) - Urinalysis = 4+ glucose, > 20 hyaline casts, 1+ protein - Monitor creatinine and urine output - If worsening, obtain renal ultrasound - Renally dose medications # Likely Demand Ischemia (Type II Non-ST Segment Elevation Myocardial Infarction) - Cardiology consulted - recommendations appreciated - EKG requested - Serial troponin: 60.9 -> 50.8 - Transthoracic echocardiogram ordered - Continue aspirin, carvedilol - Started atorvastatin # Type II Diabetes complicated by Neuropathy - Continue gabapentin and correction scale insulin # Hypertension - Continue home carvedilol Shoaib Blanton M.D.
--- NOTE | 2023-06-20 17:37 | EKG ---
Test Date: 2023-06-19 Test Time: 12:07:08 Sanitation Engineer: LINDA MEASUREMENT RESULTS: Intervals: Rate: 117 WA: 174 QRSD: 80 QT: 334 QTc: 465 [place]: P: 55 WA: 174 QRS: 9 T: 45 INTERPRETIVE STATEMENTS: Sinus tachycardia Otherwise normal ECG Compared to ECG 12/10/2022 14:20:01 Myocardial infarct finding no longer present Electronically Signed On 06-20-23 17:34:06 CDT by Darrell Marin
[2023-06-20] MEDS: PANTOPRAZOLE 40 MG INJ IVP SCH (17:53)
[2023-06-20 18:52] LABS: Hematocrit 36.4 % (39.6-49.0)
[2023-06-20] MEDS: ATORVASTATIN 10 MG TAB PO SCH (20:40)
[2023-06-20] MEDS ORDERED: DIPHENHYDRAMINE 25 MG TAB/CAP PO ONE (22:34)
[2023-06-20] MEDS: DIAZEPAM 5 MG TABLET PO PRN (22:36)
[2023-06-21] MEDS: METRONIDAZOLE 500mg IVPB 500 MG/100 ML BAG IV SCH ×3 (00:16→18:15)
[2023-06-21 00:37] LABS: Hematocrit 31.7 % (39.6-49.0)
[2023-06-21 01:32] VITALS: O2SAT 96
[2023-06-21] MEDS: PANTOPRAZOLE 40 MG INJ IVP SCH ×2 (05:48→17:00)
[2023-06-21 06:45] LABS: Absolute Lymphocytes (CBC) 2.1 K/uL (0.7-4.9); Hematocrit 36.7 % (39.6-49.0); MCV 95.9 fL (80-100); MPV 8.1 fL (7.6-11.3); Platelets 208 thou/uL (152-406); RBC Red Blood Cell Count 3.83 M/uL (4.33-5.43)
[2023-06-21 06:47] LABS: Magnesium 1.6 mg/dL (1.6-2.4); Phosphorus 1.8 mg/dL (2.5-4.9); Potassium 3.1 mEq/L (3.5-5.1)
[2023-06-21] MEDS ORDERED: POTASSIUM PHOS 20 MEQ in NA CHLORIDE 0.9% 250 ML IV ONE (07:06)
[2023-06-21] MEDS ORDERED: MAGNESIUM SULFATE 1 gm IVPB 1 GM/100 ML BAG IV ONE (07:09)
[2023-06-21] MEDS ORDERED: POTASSIUM PHOS IN 0.9 % NACL 15 MMOL/250 ML BAG IV ONE ×2 (07:09→07:15)
[2023-06-21] MEDS: ONDANSETRON 4 MG/2 ML VIAL IV PRN ×2 (07:21→16:54)
[2023-06-21] MEDS: KCL 20 MEQ/100 mL IVPB 20 MEQ/100 ML BAG IV SCH ×2 (07:24→09:21)
[2023-06-21] MEDS: TRAMADOL HCL 50 MG TAB PO PRN ×2 (08:14→16:55)
[2023-06-21] MEDS: ENOXAPARIN 40 MG/0.4 ML SQ SCH (08:15)
[2023-06-21] MEDS: CETIRIZINE HCL 5 MG TABLET PO SCH (08:15)
[2023-06-21] MEDS: carvediloL 12.5 MG TAB PO SCH ×2 (08:15→18:27)
[2023-06-21] MEDS: GABAPENTIN 100 MG CAP PO SCH ×2 (08:15→21:24)
[2023-06-21] MEDS: ASPIRIN 81 MG CHEWABLE TABLET PO SCH (08:15)
[2023-06-21] MEDS: INSULIN -REGULAR HUMAN 50 UNIT/0.5 ML ML SQ SCH ×4 (08:18→21:00)
[2023-06-21] MEDS: PROMETHAZINE INJ 25 MG/ML AMP IV PRN ×2 (09:36→21:25)
[2023-06-21] MEDS: Ciprofloxacin 200mg IV 200 MG/100 ML IV.SOLN. IV SCH ×2 (10:00→21:24)
[2023-06-21] MEDS ORDERED: Magnesium Sulfate 2gm IVPB 2 G/50 ML BAG IV ONE (16:35)
[2023-06-21] MEDS ORDERED: KCL 20 MEQ/100 mL IVPB 20 MEQ/100 ML BAG IV SCH (17:00)
--- NOTE | 2023-06-21 17:26 | PN ---
Date of Progress Note: 06/21/2023 Subjective: The patient was admitted to the hospital with acute kidney injury secondary to prerenal secondary to GI loss. The patient feeling better, started on IV fluid. Kidney function started improving. The patient tolerating diet right now. Physical Examination: Vital Signs: Blood pressure 139/77, pulse of 86, afebrile. Chest: Clear to auscultation. Heart: S1, S2. Regular. Abdomen: Soft, nontender. Extremity: No edema. Neurologic: Alert. No focality. Laboratory Data: Hemoglobin 11.5. Sodium 134, potassium 3.1, bicarb 24, BUN 12, creatinine 1.3, GFR of 63, calcium 7.7, phosphorus 1.8, magnesium 1.6. Current Medications: The patient on include ciprofloxacin, metronidazole, promethazine, Lovenox, Tylenol, pantoprazole, magnesium sulfate, potassium sulfate. Assessment And Plan: 1. Acute kidney injury secondary to poor perfusion ATN, prerenal secondary to GI loss, on the recovery phase. It looked to me normal volume. I am going to discontinue IV fluid. 2. Hypokalemia, hypomagnesemia, and hypophosphatemia. I am going to go ahead and supplement. 3. Hypertension, controlled, optimal. Keep holding SHANTELLE inhibitor or ARB for the time being. 4. Gastroenteritis as by primary. Discontinue IV fluid. Time spent examining the patient [id number], reviewing data, lab and radiology, placing order, discussing the case with the team leader including hospitalist and nursing staff more than 35 minutes. MANASA Voice ID: [id number] Report ID: [id number] ELISSA
[2023-06-21 17:30] VITALS: BMI 33.2
--- NOTE | 2023-06-21 18:59 | P.PN ---
Subjective Date of Service: 06/21/23 Chief Complaint: Nausea, vomiting and abdominal pain. No acute events overnight. His white blood cell count and creatinine are improving. He states that his diarrhea has subsided. When asked about his possible melenic stools, he states that, on second thought, they appeared more "green" than melena. Hemoglobin levels have been stable. He denies any chest pain, shortness of breath, abdominal pain, and nausea/vomiting. Review of Systems 10-point ROS is otherwise unremarkable Gastrointestinal: Diarrhea Physical Examination - Vital Signs Temperature: 98.8 F Blood Pressure: 197/108 Pulse: 98 Respirations: 16 Pulse Ox (%): 96 - Studies Microbiology Data (last 24 hrs): 06/19/23 12:24 Throat Group A Streptococcus Rapid Screen - Final 06/19/23 12:24 Throat Culture & Sensitivity - Final NORMAL UPPER RESPIRATORY NITESH GROWN. Assessment And Plan - Plan - Physical Exam General: Alert, In no apparent distress, Oriented x3 HEENT: Atraumatic, Mucous membr. moist/pink, Sclerae nonicteric Respiratory: Clear to auscultation bilaterally, Normal air movement Cardiovascular: No edema, Regular rate/rhythm, No murmurs Gastrointestinal: Normal bowel sounds, Soft, Non-distended, No tenderness Musculoskeletal: No clubbing Integumentary: No rashes Neurological: Normal speech, Normal affect # Severe Sepsis likely secondary to Esophagitis and Jejunitis - POA He met sepsis criteria based on HR > 90 bpm, RR > 20 breaths/min, and WBC > 12,000, and the suspected source is esophagitis and jejunitis. Severe sepsis is suspected due to concern for tissue hypoperfusion/organ dysfunction based on creatinine >2.0 (without ESRD) and lactic acid > 2 mmol/L. - Chest x-ray = "no acute abnormalities displayed." - CT chest/abdomen/pelvis = "thickening of the wall of the mid and distal esophagus may indicate an esophagitis. Mild dilatation of a fluid-filled loop of jejunum may indicate an enteritis" - Sepsis order set was initiated - Lactate: 2.6 -> 2.0 - Blood cultures drawn - Broad spectrum antibiotics started: Ciprofloxacin + Metronidazole - In regards to fluids: - 30 mL/kg of IV fluids was not administered given SBP > 90, MAP > 65, lactic acid < 4 # Diarrhea, with initial concern for Melena Upon further history, he states that stool was more "dark green," than melena - Gastroenterology unavailable at our facility - Spoke with Dr. Perry (General Surgery), who is willing to address his endoscopic needs - Serial H&H - Transfuse for Hgb < 7.0 - 2 large bore IVs - Continue antibiotics as mentioned above - Pantoprazole 40 mg IV BID # KDIGO Stage I Acute Kidney Injury on Chronic Kidney Disease Stage III - Nephrology consulted - recommendations appreciated - Creatinine = 2.57 -> 1.84 -> 1.67 -> 1.36 (creatinine was 1.58 on 12/11/2022) - Urinalysis = 4+ glucose, > 20 hyaline casts, 1+ protein - Monitor creatinine and urine output - If worsening, obtain renal ultrasound - Renally dose medications # Likely Demand Ischemia (Type II Non-ST Segment Elevation Myocardial Infarction) - Cardiology consulted - recommendations appreciated - EKG requested - Serial troponin: 60.9 -> 50.8 - Transthoracic echocardiogram ordered - Continue aspirin, carvedilol - Started atorvastatin # Type II Diabetes complicated by Neuropathy - Continue gabapentin and correction scale insulin # Hypertension - Continue home carvedilol Shoaib Blanton M.D.
[2023-06-21] MEDS: DIAZEPAM 5 MG TABLET PO PRN (21:24)
[2023-06-21] MEDS: ATORVASTATIN 10 MG TAB PO SCH (21:24)
[2023-06-22] MEDS: METRONIDAZOLE 500mg IVPB 500 MG/100 ML BAG IV SCH (00:28)
[2023-06-22] MEDS: TRAMADOL HCL 50 MG TAB PO PRN ×3 (00:54→11:59)
[2023-06-22] MEDS: ONDANSETRON 4 MG/2 ML VIAL IV PRN ×2 (00:54→11:58)
[2023-06-22 03:52] LABS: Absolute Lymphocytes (CBC) 1.8 K/uL (0.7-4.9); Hematocrit 33.5 % (39.6-49.0); Lymphocytes % 21.9 % (15.3-44.8); MCV 94.7 fL (80-100); MPV 8.2 fL (7.6-11.3); Platelets 199 thou/uL (152-406); RBC Red Blood Cell Count 3.54 M/uL (4.33-5.43)
[2023-06-22 04:09] LABS: Magnesium 2.1 mg/dL (1.6-2.4); Potassium 3.2 mEq/L (3.5-5.1)
[2023-06-22] MEDS: PANTOPRAZOLE 40 MG INJ IVP SCH (05:34)
[2023-06-22] MEDS: KCL 20 MEQ/100 mL IVPB 20 MEQ/100 ML BAG IV SCH ×2 (06:32→09:13)
[2023-06-22] MEDS ORDERED: POTASSIUM PHOS IN 0.9 % NACL 15 MMOL/250 ML BAG IV ONE (07:00)
[2023-06-22] MEDS: PROMETHAZINE INJ 25 MG/ML AMP IV PRN (07:19)
[2023-06-22] MEDS: INSULIN -REGULAR HUMAN 50 UNIT/0.5 ML ML SQ SCH ×2 (08:08→11:30)
[2023-06-22] MEDS: GABAPENTIN 100 MG CAP PO SCH (08:08)
[2023-06-22] MEDS: carvediloL 12.5 MG TAB PO SCH (08:08)
[2023-06-22] MEDS: ENOXAPARIN 40 MG/0.4 ML SQ SCH (08:08)
[2023-06-22] MEDS: CETIRIZINE HCL 5 MG TABLET PO SCH (08:08)
[2023-06-22] MEDS: ASPIRIN 81 MG CHEWABLE TABLET PO SCH (08:08)
[2023-06-22 08:45] VITALS: TEMP 98.8
[2023-06-22 10:05] VITALS: BP 139/81
--- NOTE | 2023-06-22 10:31 | P.PN ---
Subjective Date of Service: 06/22/23 Chief Complaint: Nausea, vomiting and abdominal pain. Physical Examination - Vital Signs Temperature: 98.8 F Blood Pressure: 139/81 Pulse: 89 Respirations: 16 Pulse Ox (%): 99 - Studies Microbiology Data (last 24 hrs): 06/19/23 12:24 Throat Group A Streptococcus Rapid Screen - Final 06/19/23 12:24 Throat Culture & Sensitivity - Final NORMAL UPPER RESPIRATORY NITESH GROWN. Assessment And Plan - Plan 1. Acute kidney injury secondary to poor perfusion ATN, prerenal secondary to GI loss, on the recovery phase. It looked to me normal volume. I am going to discontinue IV fluid. 2. Hypokalemia, hypomagnesemia, and hypophosphatemia. I am going to go ahead and supplement. 3. Hypertension, controlled, optimal. Keep holding SHANTELLE inhibitor or ARB for the time being. 4. Gastroenteritis as by primary. Discontinue IV fluid. Physician Review: Patient Assessed, Agree with Above Assessment and Plan
--- NOTE | 2023-06-22 11:17 | P.DS ---
Admission Date: 06/20/23 Discharge Date: 06/22/23 Primary Care Provider: Dr. Manuel Disposition: ROUTINE DISCHARGE Discharge Condition: GOOD Reason for Admission: Nausea, vomiting and abdominal pain. Consultations: 1. Nephrology 2. Cardiology Hospital Course: DIAGNOSES: # Severe Sepsis likely secondary to Esophagitis and Jejunitis - POA # Diarrhea, with initial concern for Melena # KDIGO Stage I Acute Kidney Injury on Chronic Kidney Disease Stage III # Likely Demand Ischemia (Type II Non-ST Segment Elevation Myocardial Infarction) # Type II Diabetes complicated by Neuropathy # Hypertension # Small Left and Small-Moderate Right Inguinal Hernias HOSPITAL COURSE: Mr. Zaid Chiang is a pleasant 52 year old male with a past medical history significant for chronic kidney disease stage III, type II diabetes mellitus, and hypertension who was admitted to the [facility] on 06/19/2023 for abdominal pain, nausea/vomiting, and diarrhea. He was admitted to the Medicine service. Upon further evaluation, he was found to have an acute kidney injury. His CT chest/abdomen/pelvis revealed, "thickening of the wall of the mid and distal esophagus may indicate an esophagitis. Mild dilatation of a fluid-filled loop of jejunum may indicate an enteritis." Gastroenterology was unavailable for consult, so General Surgery was consulted. He was evaluated by Dr. Perry, who felt that he should schedule a colonoscopy as an outpatient. There was initial concern for melena; however, upon further questioning, it appears that he did not truly have melenic stools. He was treated with IV fluids, IV antibiotics, and IV pantoprazole. Over the course of his hospitalization, his symptoms as well as his creatinine improved significantly. Incidentally, he was found to have a mildly elevated troponin. He reported no chest discomfort. His chest x-ray revealed, "no acute abnormalities displayed." Cardiology was consulted and he was evaluated by Dr. Marin. He felt that his troponin level was secondary to demand ischemia. He has cleared him for discharge with outpatient follow-up. On 06/22/2023, he was seen on rounds and deemed medically stable for discharge. He was discharged with instructions to schedule follow-up appointments with his PCP (Dr. Manuel), with Cardiology (Dr. Marin), with Gastroenterology (Dr. Kulwinder coulter), and with General Surgery (Dr. Kovacev). He was provided prescriptions for ciprofloxacin, metronidazole, and ondansetron. He was given the opportunity to ask questions and reported no further questions. Furthermore, all questions were answered to the best of my ability. A copy of this discharge summary will be sent to the above providers to facilitate continuity of care. Today, I personally spent 25 minutes on his case, of which greater than 50% of the time was spent in patient education, counseling, and coordination of care as described above. - Physical Exam General: Alert, In no apparent distress, Oriented x3 HEENT: Atraumatic, Mucous membr. moist/pink, Sclerae nonicteric Respiratory: Clear to auscultation bilaterally, Normal air movement Cardiovascular: No edema, Regular rate/rhythm, No murmurs Gastrointestinal: Normal bowel sounds, Soft, Non-distended, No tenderness Musculoskeletal: No clubbing Integumentary: No rashes Neurological: Normal speech, Normal affect Vital Signs/Physical Exam: Temp Pulse Resp BP Pulse Ox 98.8 F 89 16 139/81 99 06/22/23 10:31 06/22/23 10:31 06/22/23 10:31 06/22/23 10:31 06/22/23 10:31 Laboratory Data at Discharge: WBC 8.20 thou/uL (4.3-10.9) 06/22/23 03:01 Hgb 11.6 g/dL (13.6-17.9) L 06/22/23 03:01 Hct 33.5 % (39.6-49.0) L 06/22/23 03:01 Plt Count 199 thou/uL (152-406) 06/22/23 03:01 PT 11.4 SECONDS (9.5-12.5) 06/19/23 12:15 INR 1.04 06/19/23 12:15 Sodium 134 mEq/L (136-145) L 06/22/23 03:01 Potassium 3.2 mEq/L (3.5-5.1) L 06/22/23 03:01 BUN 12 mg/dL (7-18) 06/22/23 03:01 Creatinine 1.19 mg/dL (0.70-1.30) 06/22/23 03:01 Glucose 211 mg/dL (74-106) H 06/22/23 03:01 Phosphorus 2.0 mg/dL (2.5-4.9) L 06/22/23 03:01 Magnesium 2.1 mg/dL (1.6-2.4) 06/22/23 03:01 Total Bilirubin 0.7 mg/dL (0.2-1.0) 06/19/23 12:15 AST 17 U/L (15-37) 06/19/23 12:15 ALT 21 U/L (16-61) 06/19/23 12:15 Alkaline Phosphatase 56 U/L (45-117) 06/19/23 12:15 Triglycerides 107 mg/dL (<150) 06/20/23 02:25 Cholesterol 123 mg/dL (<200) 06/20/23 02:25 HDL Cholesterol 48 mg/dL (40-60) 06/20/23 02:25 Cholesterol/HDL Ratio 2.56 06/20/23 02:25 Lipase 16 U/L (13-75) 06/19/23 12:15 Home Medications: Carvedilol [Coreg] 12.5 mg PO BID 12/10/22 Gabapentin [Neurontin*] 100 mg PO BID 12/10/22 Metformin ER [Glucophage ER*] 500 mg PO BID 12/10/22 Semaglutide [Ozempic] 0.5 mg SQ MO 12/10/22 diazePAM [Diazepam] 10 mg PO BEDTIME PRN 12/10/22 Cetirizine HCl 10 mg PO DAILY 06/19/23 Glimepiride [Amaryl] 4 mg PO DAILY 06/19/23 Insulin Glargine,Hum.rec.anlog [Lantus] 20 unit SQ BEDTIME PRN 06/19/23 Ciprofloxacin HCl 250 mg PO BID 10 Days #20 tab 06/22/23 Ondansetron [Zofran (Odt)*] 4 mg PO Q8H PRN 7 Days #20 tab 06/22/23 Pantoprazole Sodium 40 mg PO DAILY #30 06/22/23 metroNIDAZOLE [Metronidazole] 500 mg PO Q8H 10 Days #30 tab 06/22/23 New Medications: Ciprofloxacin HCl 250 mg PO BID 10 Days #20 tab metroNIDAZOLE [Metronidazole] 500 mg PO Q8H 10 Days #30 tab Pantoprazole Sodium 40 mg PO DAILY #30 Ondansetron [Zofran (Odt)*] 4 mg PO Q8H PRN 7 Days #20 tab PRN Reason: Nausea / Vomiting Physician Discharge Instructions: 1. Please call and schedule a follow-up appointment with your PCP (Dr. Manuel) in 3-5 days - Your blood work showed a mild anemia. Please discuss with your PCP for further evaluation - Please stop taking your metformin and Ozempic until your see your PCP. These medications can cause stomach upset. 2. Please call and schedule a follow-up appointment with General Surgery (Dr. Perry) in 5-7 days - Please discuss your groin hernias with him at this appointment 3. Please call and schedule a follow-up appointment with Gastroenterology (Dr. Barnard) in 3-5 days - Please have him schedule you for a colonoscopy in about 1 month 4. Please call and schedule a follow-up appointment with Cardiology (Dr. Marin) in 5-7 days Diet: Regular Activity: Ad margaret Followup: Jose Perry MD [ACTIVE - CAN ADMIT] - Darrell Marin MD [ACTIVE - CAN ADMIT] - Gustavo Barnard MD [ACTIVE - CAN ADMIT] - Mar HO,Valeri Jones DO [ACTIVE - CAN ADMIT] - Time spent managing pt's care (in minutes): 25
--- NOTE | 2023-06-24 18:14 | CON ---
Date of Consultation: 06/22/2023 Reason For Consultation: Elevated troponin. History Of Present Illness: A 52-year-old male with history of diabetes, hypertension, anxiety, pres ented with nausea, vomiting, and diarrhea, started 1 day prior to presentation along with abdominal p ain in the both lower quadrants. Denies having any chest pain. Troponin was tested and was slightly elevated. The patient has no chest pain or shortness of breath. Past Medical History: Diabetes, hypertension, anxiety disorder. Medications: Refer to reconciliation sheet for detailed list. Allergies: NO KNOWN DRUG ALLERGIES. Family History: No premature coronary artery disease or cancer. Social History: Ex-smoker. Does not drink or use any drugs. Review of Systems: All systems reviewed and they were negative except what mentioned in HPI. Physical Examination: Vital Signs: Reviewed. Head and Neck: Pupils are equal, reactive to light. Intact eye movements. No JVD. No cervical lym phadenopathy. Neck is supple. Thyroid is not enlarged. Lungs: Clear to auscultation bilaterally. No rhonchi, wheezing, or crackles. No accessory muscle u se. Heart: Regular rate and rhythm. No extra sounds. Abdomen: Soft, nontender. Bowel sounds positive. No organomegaly. No masses or hernia. No rigidi ty or rebound. Extremities: No edema, clubbing, or cyanosis. Intact pulses. Skin: No rash. Neurologic: Alert, awake, oriented x3. No acute focal deficits appreciated. Investigations: Troponin peaked at 60.9 and down to 31. Creatinine was 2.57 and down to normal. Assessment And Recommendations: 1.Elevated troponin. This is demand ischemia. The patient does not have chest pain and troponin no rmalized. We will plan for outpatient cardiac evaluation with a stress test and an echo due to the r isk factors. 2.Acute renal failure due to severe dehydration, improving and today his creatinine is normal. 3.Gastroenteritis resulting in dehydration and mild leak of troponin and symptoms are resolving. Pl an for outpatient workup and Cardiology will sign off. SR/MODL Voice ID: [id number] Report ID: [id number]
== END 2023-06-22 13:46 | disposition home or self-care (01) | DRG 871 ==
LOC: ER 11:36 → ERHOLD 15:08 → 2ND 15:47 → OBSVTOIN 06-20 10:27
PROVIDERS: ADMIT Internal Medicine; ATTEND Internal Medicine
DX: A41.9 Sepsis, unspecified organism (principal); I21.A1 Myocardial infarction type 2; N17.0 Acute kidney failure with tubular necrosis; K20.91 Esophagitis, unspecified with bleeding; E87.1 Hypo-osmolality and hyponatremia; R65.20 Severe sepsis without septic shock; I10 Essential (primary) hypertension; E87.6 Hypokalemia; A08.4 Viral intestinal infection, unspecified; F41.9 Anxiety disorder, unspecified; I12.9 Hypertensive chronic kidney disease with stage 1 through stage 4 chronic kidney disease, or unspecified chronic kidney disease; N18.30 Chronic kidney disease, stage 3 unspecified; E11.22 Type 2 diabetes mellitus with diabetic chronic kidney disease; E11.65 Type 2 diabetes mellitus with hyperglycemia; E11.40 Type 2 diabetes mellitus with diabetic neuropathy, unspecified; E86.0 Dehydration; E78.5 Hyperlipidemia, unspecified; E83.42 Hypomagnesemia; E83.39 Other disorders of phosphorus metabolism; K40.90 Unilateral inguinal hernia, without obstruction or gangrene, not specified as recurrent; D72.829 Elevated white blood cell count, unspecified; R77.8 Other specified abnormalities of plasma proteins; Z79.4 Long term (current) use of insulin; Z79.84 Long term (current) use of oral hypoglycemic drugs; Z79.899 Other long term (current) drug therapy; Z87.891 Personal history of nicotine dependence
CPT/HCPCS: 36415; 36600; 71045; 71250; 74176; 80048; 80061; 80076; 81001; 82805; 82947; 83605; 83690; 83735; 83880; 84100; 84132; 84439; 84443; 84484; 85014; 85018; 85025; 85610; 87040; 87070; 87081; 87635; 87804; 93005; 96361; 96365; 96372; 96375; 99285; C9113; J0696; J0744; J1650; J1720; J1815; J2405; J2550; J3475; J3480; J7030; J7040; J7050

== ENCOUNTER 2024-02-28 12:05 | Inpatient (IN) | payer OTHER ==
[2024-02-28] MEDS ORDERED: ONDANSETRON 4 MG/2 ML VIAL ONE ×2 (12:57→15:01)
[2024-02-28 13:13] LABS: Absolute Basophils 0.1 K/uL (0-0.5); Absolute Lymphocytes (CBC) 1.9 K/uL (0.7-4.9); Absolute Monocytes 1.4 K/uL (0.1-1.3); Absolute Neutrophil 18.1 K/uL (1.8-8.0); Basophils % 0.2 % (0-1.3); Hematocrit 46.3 % (39.6-49.0); Hemoglobin 15.5 g/dL (13.6-17.9); Lymphocytes % 8.9 % (15.3-44.8); MCH 31.3 pg (27.0-35.0); MCHC 33.4 g/dL (32.0-36.0); MCV 93.6 fL (80-100); MPV 8.4 fL (7.6-11.3); Monocytes % 6.5 % (3.3-12.3); Neutrophils % 84.4 % (41.7-73.7); Platelets 366 thou/uL (152-406); RBC Red Blood Cell Count 4.95 M/uL (4.33-5.43); Red Cell Distribution Width 13.3 % (12.1-15.2)
[2024-02-28 13:19] LABS: PT Prothrombin Time 11.4 SECONDS (9.5-12.5); Protime INR 1.04
--- NOTE | 2024-02-28 13:31 | RAD REPORT ---
EXAM DESCRIPTION: RAD - Chest Single View - 02/28/2024 1:25 pm CLINICAL HISTORY: COUGH Chest pain. COMPARISON: <Comparisons> FINDINGS: Portable technique limits examination quality. The lungs are grossly clear. The heart is normal in size. No displaced fractures. IMPRESSION: No acute intrathoracic process suspected.
[2024-02-28 13:36] LABS: Band Neutrophils 5 % (0-1); Blood Morphology Comment NOT SEEN (NOT SEEN); Differential Total Cells Count 100; Dohle Bodies PRESENT; Lymphocytes 10 % (15-42); Monocytes 4 % (0-10); Platelet Estimate ADEQ; Segmented Neutrophils 81 % (40-80); Toxic Granulation 1+; White Blood Cell Scan OK (OK)
[2024-02-28 13:41] LABS: Albumin 3.8 g/dL (3.4-5.0); Albumin/Globulin Ratio 0.9 (1.1-1.8); Anion Gap 15.6 mEq/L (5.0-15.0); Bilirubin Direct 0.2 mg/dL (0-0.2); Bilirubin Indirect, Calculated 0.5 mg/dL (0.2-0.8); Bilirubin Total 0.7 mg/dL (0.2-1.0); Globulin 4.4 g/dL (2.3-3.5); Magnesium 2.1 mg/dL (1.6-2.4); Potassium 3.6 mEq/L (3.5-5.1); Protein, Total 8.2 g/dL (6.4-8.2); Troponin High Sensitivity 56.7 pg/mL (<58.9)
[2024-02-28] MEDS ORDERED: NA CHLORIDE 0.9% 1,000 ML ONE ×3 (14:54→17:26)
--- NOTE | 2024-02-28 16:31 | EDPHYS ---
Physician Documentation [facility] Name: Zaid Chiang Age: 53 yrs Sex: Male : 1970 Arrival Date: 02/28/2024 Time: 12:05 Bed 7 Private MD: EFFIE HERNANDEZ ED Physician Sravan Kelly HPI: 02/27 16:21 This 53 yrs old Male presents to ER via Ambulatory with complaints of vivi Nausea/Vomiting. 16:21 The patient presents to the emergency department with nausea, vomiting, diarrhea, that vivi is continuous, abdominal pain. Onset: The symptoms/episode began/occurred 3 day(s) ago. Possible causes: unknown, flare up of bowel problem. The symptoms are aggravated by nothing. The symptoms are alleviated by nothing. Associated signs and symptoms: Pertinent positives: abdominal pain, nausea, vomiting. Severity of symptoms: At their worst the symptoms were moderate in the emergency department the symptoms are unchanged. The patient has not experienced similar symptoms in the past. Historical: - Allergies: 12:17 No Known Allergies; ll1 - Home Meds: 15:06 carvedilol 25 mg Oral tablet [Active]; ozempic once a week [Active]; gabapentin 100 mg mb9 Oral cap 1 cap twice a day [Active]; - PMHx: 12:17 Diabetes - NIDDM; Hypertension; ll1 - PSHx: 15:06 None; mb9 - Immunization history:: Adult Immunizations up to date. - Infectious Disease History:: Denies. - Social history:: Smoking status: Patient denies any tobacco usage or history of. ROS: 16:22 Constitutional: Negative for fever, chills, and weight loss, Eyes: Negative for injury, vivi pain, redness, and discharge, ENT: Negative for injury, pain, and discharge, Neck: Negative for injury, pain, and swelling, Respiratory: Negative for shortness of breath, cough, wheezing, and pleuritic chest pain, Back: Negative for injury and pain, : Negative for injury, bleeding, discharge, and swelling, MS/Extremity: Negative for injury and deformity, Skin: Negative for injury, rash, and discoloration, Psych: Negative for depression, anxiety, suicide ideation, homicidal ideation, and hallucinations, Allergy/Immunology: Negative for hives, rash, and allergies, Endocrine: Negative for neck swelling, polydipsia, polyuria, polyphagia, and marked weight changes, Hematologic/Lymphatic: Negative for swollen nodes, abnormal bleeding, and unusual bruising, 16:22 Cardiovascular: Positive for palpitations, 16:22 Abdomen/GI: Positive for abdominal pain, nausea and vomiting, nausea, vomiting, and diarrhea, nausea, vomiting, diarrhea, abdominal cramps, 16:22 Neuro: Positive for dizziness, weakness, Exam: 16:22 Constitutional: This is a well developed, well nourished patient who is awake, alert, vivi and in no acute distress. Head/Face: Normocephalic, atraumatic. Eyes: Pupils equal round and reactive to light, extra-ocular motions intact. Lids and lashes normal. Conjunctiva and sclera are non-icteric and not injected. Cornea within normal limits. Periorbital areas with no swelling, redness, or edema. ENT: Nares patent. No nasal discharge, no septal abnormalities noted. Tympanic membranes are normal and external auditory canals are clear. Oropharynx with no redness, swelling, or masses, exudates, or evidence of obstruction, uvula midline. Mucous membranes moist. Neck: Trachea midline, no thyromegaly or masses palpated, and no cervical lymphadenopathy. Supple, full range of motion without nuchal rigidity, or vertebral point tenderness. No Meningismus. Chest/axilla: Normal chest wall appearance and motion. Nontender with no deformity. No lesions are appreciated. Abdomen/GI: Soft, non-tender, with normal bowel sounds. No distension or tympany. No guarding or rebound. No evidence of tenderness throughout. Back: No spinal tenderness. No costovertebral tenderness. Full range of motion. Male : Normal genitalia with no discharge or lesions. Skin: Warm, dry with normal turgor. Normal color with no rashes, no lesions, and no evidence of cellulitis. MS/ Extremity: Pulses equal, no cyanosis. Neurovascular intact. Full, normal range of motion. Neuro: Awake and alert, GCS 15, oriented to person, place, time, and situation. Cranial nerves II-XII grossly intact. Motor strength 5/5 in all extremities. Sensory grossly intact. Cerebellar exam normal. Normal gait. Psych: Awake, alert, with orientation to person, place and time. Behavior, mood, and affect are within normal limits. 16:22 Cardiovascular: Rate: tachycardic, actual rate is 102 bpm, Rhythm: regular, Pulses: Pulses are 4+ in left popliteal artery, bilateral radial, brachial, femoral, popliteal, posterior tibial and and dorsalis pedis arteries.. Heart sounds: normal, normal S1and S2, no S3 or S4, no murmur, no rub, no gallop, murmur, not appreciated, rub, not appreciated, gallop, not appreciated, Edema: is not appreciated, JVD: is not appreciated, 16:22 ECG was reviewed by the Attending Physician. Vital Signs: 12:22 BP 136 / 79; Pulse 109; Resp 20; Temp 97.8; Pulse Ox 99% ; Weight 99.79 kg; Height 5 ll1 ft. 10 in. ; Pain 0/10; 15:07 BP 131 / 81; Pulse 103; Resp 16; Pulse Ox 100% on R/A; mb9 17:00 BP 164 / 97; Pulse 98; Resp 18; Pulse Ox 100% ; mb9 18:10 BP 163 / 97; Pulse 112; Resp 16; Pulse Ox 100% on R/A; mb9 21:20 BP 182 / 111; Pulse 109; Resp 21; Temp 97.8(TE); Pulse Ox 99% on R/A; tm6 12:22 Body Mass Index 31.57 (99.79 kg, 177.8 cm) ll1 12:22 Pain Scale: Adult ll1 MDM: 12:19 Patient medically screened. vivi 16:25 Differential diagnosis: Nonspecific abd pain, gastritis, pancreatitis, diverticulitis, vivi viral gastroenteritis, gastroenteritis, cholecystitis, Cholelithiasis, diverticulitis. Differential Diagnosis sepsis, flu. Data reviewed: vital signs, nurses notes, lab test result(s), EKG, radiologic studies, CT scan, plain films. Consideration of Admission/Observation Patient was admitted/placed on observation. Escalation of care including admission/observation considered. I considered the following discharge prescriptions or medication management in the emergency department Medications were administered in the Emergency Department. See MAR. Independent interpretation of the following test(s) in the Emergency Department EKG: See my EKG interpretation above. Test considered but Not performed: Ultrasound no abd usg. Historians other than the Patient: patient well informed. Care significantly affected by the following chronic conditions: Diabetes, Hypertension. Counseling: I had a detailed discussion with the patient and/or guardian regarding the historical points, exam findings, and any diagnostic results supporting the discharge/admit diagnosis, lab results, radiology results, the need for further work-up and treatment in the hospital. 02/27 12:19 Order name: Basic Metabolic Panel; Complete Time: 14:46 [facility] 02/27 12:19 Order name: CBC with Diff; Complete Time: 14:46 [facility] 02/27 12:19 Order name: LFT's; Complete Time: 14:46 [facility] 02/27 12:19 Order name: Magnesium; Complete Time: 14:46 [facility] 02/27 12:19 Order name: NT PRO-BNP; Complete Time: 14:46 [facility] 02/27 12:19 Order name: PT-INR; Complete Time: 14:46 [facility] 02/27 12:19 Order name: Troponin HS; Complete Time: 14:46 [facility] 02/27 12:19 Order name: Lipase; Complete Time: 14:46 [facility] 02/27 12:19 Order name: Urinalysis w/ reflexes [facility] 02/27 13:15 Order name: CBC Smear Scan; Complete Time: 14:46 [facility] 02/27 13:36 Order name: Manual Differential; Complete Time: 14:46 [facility] 02/27 16:21 Order name: Blood Culture Adult (2) [facility] 02/27 16:21 Order name: Lactate w/ 2H reflex if indic.; Complete Time: 18:02 [facility] 02/27 19:13 Order name: Lactate w/ 2H reflex if indic. [facility] 02/27 19:13 Order name: Thyroid Stimulating Hormone [facility] 02/27 19:13 Order name: Urinalysis w/ reflexes [facility] 02/27 19:13 Order name: CBC with Automated Diff [facility] 02/27 19:13 Order name: CBC with Automated Diff [facility] 02/27 19:13 Order name: Comprehensive Metabolic Panel [facility] 02/27 19:13 Order name: Comprehensive Metabolic Panel [facility] 02/27 19:13 Order name: Lipid Profile [facility] 02/27 19:13 Order name: Lipid Profile [facility] 02/27 19:13 Order name: Magnesium [facility] 02/27 19:13 Order name: Magnesium [facility] 02/27 19:13 Order name: Protime (+INR) [facility] 02/27 19:13 Order name: Protime (+INR) [facility] 02/27 19:13 Order name: PTT, Activated Partial Thromb [facility] 02/27 19:13 Order name: PTT, Activated Partial Thromb [facility] 02/27 19:16 Order name: Glucose, Ancillary Testing; Complete Time: 19:18 [facility] 02/27 12:19 Order name: XRAY Chest (1 view); Complete Time: 14:46 [facility] 02/27 16:21 Order name: CT Chest Abdomen Pelvis W/O Contrast; Complete Time: 18:02 [facility] 02/27 12:19 Order name: EKG; Complete Time: 12:20 [facility] 02/27 12:19 Order name: Cardiac monitoring; Complete Time: 14:52 [facility] 02/27 12:19 Order name: EKG - Nurse/Tech; Complete Time: 14:53 [facility] 02/27 12:19 Order name: IV Saline Lock; Complete Time: 12:59 [facility] 02/27 12:19 Order name: Labs collected and sent; Complete Time: 12:59 [facility] 02/27 12:19 Order name: O2 Per Protocol; Complete Time: 14:52 [facility] 02/27 12:19 Order name: O2 Sat Monitoring; Complete Time: 14:53 [facility] EC:22 Rate is 106 beats/min. Rhythm is regular. QRS Wisner is Normal. AR interval is normal. [facility] QRS interval is normal. QT interval is normal. No Q waves. T waves are Normal. No ST changes noted. Clinical impression: Sinus tachycardia and No evidence of ischemia. Interpreted by me. Reviewed by me. Administered Medications: 12:59 Drug: Ondansetron IVP 4 mg IVP once; over 2 minutes Route: IVP; Site: left antecubital; ph 14:53 Follow up: Response: No adverse reaction mb9 15:05 Drug: NS 0.9% IV 1000 ml IV at 1 bolus Per protocol; 1000 mL bolus Route: IV; Rate: 1 mb9 bolus; Site: left antecubital; 17:44 Follow up: Response: No adverse reaction; IV Status: Completed infusion mb9 15:05 Drug: Ondansetron IVP 4 mg IVP once; over 2 minutes Route: IVP; Site: left antecubital; mb9 17:44 Follow up: Response: No adverse reaction mb9 15:05 Drug: NS 0.9% IV 1000 ml IV at 1 bolus Per protocol; 1000 mL bolus Route: IV; Rate: 1 mb9 bolus; Site: left antecubital; 17:43 Follow up: Response: No adverse reaction; IV Status: Completed infusion mb9 17:22 Drug: Insulin Glargine Sub-Q 30 units Sub-Q once {Co-Signature: ryan (Fernanda Dixon RN).} Route: Sub-Q; Site: left upper arm; 17:44 Follow up: Response: No adverse reaction mb9 17:23 Drug: Insulin Regular Human IVP 8 units IVP once {Co-Signature: ryan (Fernanda Dixon RN).} Route: IVP; Site: left antecubital; 17:43 Follow up: Response: No adverse reaction mb9 17:23 Drug: Famotidine IVP 20 mg IVP once; dilute with 10 mL 0.9% NaCl; give over 2 minutes iw Route: IVP; Site: left antecubital; 17:43 Follow up: Response: No adverse reaction mb9 17:35 Drug: Rocephin IV 1 grams IV at per protocol once; Given slow IV push per pharmacy mb9 instructions Route: IV; Rate: per protocol; Site: left antecubital; 18:04 Follow up: Response: No adverse reaction; IV Status: Completed infusion mb9 17:43 Drug: NS 0.9% IV 1000 ml IV at 1 bolus Per protocol; 1000 mL bolus Route: IV; Rate: 1 mb9 bolus; Site: left antecubital; 18:33 Follow up: Response: No adverse reaction; IV Status: Completed infusion mb9 17:43 Drug: Promethazine IVP 12.5 mg IVP once Route: IVP; Site: left antecubital; mb9 18:03 Follow up: Response: No adverse reaction mb9 18:10 Drug: metroNIDAZOLE IVPB 500 mg 100 ml IVPB at 200 ml/hr once over 30 mins Volume: 100 mb9 ml; Route: IVPB; Rate: 200 ml/hr; Infused Over: 30 mins; Site: left antecubital; 18:33 Follow up: Response: No adverse reaction; IV Status: Completed infusion mb9 18:33 Drug: Ciprofloxacin IVPB 400 mg 200 ml IVPB once over 60 mins Volume: 200 ml; Route: mb9 IVPB; Infused Over: 60 mins; Site: left antecubital; Disposition Summary: 02/28/24 16:30 Hospitalization Ordered Notes: Hospitalization Status: Inpatient Admission vivi Provider: Ronen Davenport cha Location: Telemetry/MedSurg (Inpatient) vivi Condition: Fair vivi Problem: new vivi Symptoms: have improved vivi Bed/Room Type: Standard [facility] Room Assignment: 206(02/28/24 19:18) cg Diagnosis - Dehydration vivi - Acute kidney failure, unspecified - on chronic vivi - Elevated white blood cell count vivi - Bandemia vivi - Vomiting vivi - Diarrhea, unspecified vivi - Other specified noninfective gastroenteritis and colitis vivi Forms: - Medication Reconciliation Form vivi - SBAR form vivi - Leadership Thank You Letter vivi Signatures: Dispatcher [employer] EDMS Sravan Kelly MD MD cha Waters, Shelly, BUSINESS DEVELOPMENT ANALYST-C BUSINESS DEVELOPMENT ANALYST-Csnw Renita Cam, RN RN Denisse Gold RN Sharon Shelton ph, RN RN Carlos Hawkins RN RN ll1 Fernanda Dixon RN RN mb9 Fernanda Dixon RN mb9 Corrections: (The following items were deleted from the chart) 16:21 16:21 Chest Abdomen Pelvis Wo Con+CT.RAD.BRZ ordered. EDMS EDMS 16:21 16:21 BLOOD CULTURE*+BA.LAB.BRZ ordered. EDMS EDMS 16:21 16:21 LACTATE+C.LAB.BRZ ordered. EDMS EDMS 19:18 16:30 vivi cg
--- NOTE | 2024-02-28 16:31 | ER ---
Nurse's Notes [facility] Name: Zaid Chiang Age: 53 yrs Sex: Male : 1970 Arrival Date: 02/28/2024 Time: 12:05 Bed 7 Private MD: EFFIE HERNANDEZ Diagnosis: Dehydration;Acute kidney failure, unspecified-on chronic;Elevated white blood cell count;Bandemia;Vomiting;Diarrhea, unspecified;Other specified noninfective gastroenteritis and colitis Presentation: 02/27 12:22 Chief complaint: Patient states: N/V/D since Sunday. No fever or pains. ll1 Coronavirus screen: Client denies travel out of the [place] in the last 14 days. At this time, the client does not indicate any symptoms associated with coronavirus-19. Ebola Screen: Patient denies travel to an Ebola-affected area in the 21 days before illness onset. Initial Sepsis Screen: Does the patient meet any 2 criteria? No. Patient's initial sepsis screen is negative. Does the patient have a suspected source of infection? No. Patient's initial sepsis screen is negative. Risk Assessment: Do you want to hurt yourself or someone else? Patient reports no desire to harm self or others. Onset of symptoms was February 26, 2024. 12:22 Method Of Arrival: Ambulatory [facility] 12:22 Acuity: KATHLEEN 3 ll1 Historical: - Allergies: 12:17 No Known Allergies; ll1 - Home Meds: 15:06 carvedilol 25 mg Oral tablet [Active]; ozempic once a week [Active]; gabapentin 100 mg mb9 Oral cap 1 cap twice a day [Active]; - PMHx: 12:17 Diabetes - NIDDM; Hypertension; ll1 - PSHx: 15:06 None; mb9 - Immunization history:: Adult Immunizations up to date. - Infectious Disease History:: Denies. - Social history:: Smoking status: Patient denies any tobacco usage or history of. Screenin:06 [facility] ED Fall Risk Assessment (Adult) History of falling in the last 3 months, mb9 including since admission No falls in past 3 months (0 pts) Confusion or Disorientation No (0 pts) Intoxicated or Sedated No (0 pts) Impaired Gait No (0 pts) Mobility Assist Device Used No (0 pt) Altered Elimination No (0 pt) Score/Fall Risk Level 0 - 2 = Low Risk Oriented to surroundings, Maintained a safe environment, Educated pt \T\ family on fall prevention, incl call for assistance when getting out of bed. Abuse screen: Denies threats or abuse. Nutritional screening: No deficits noted. Tuberculosis screening: No symptoms or risk factors identified. Assessment: 15:05 General: Appears uncomfortable, ill, Behavior is cooperative. Pain: Denies pain. Neuro: mb9 Lambert Agitation-Sedation Scale (RASS): 0 - Alert and Calm Level of Consciousness is awake, alert, obeys commands, Oriented to person, place, time, situation, Appropriate for age. Cardiovascular: Heart tones S1 S2 present Patient's skin is warm and dry. Respiratory: Airway is patent Respiratory effort is even, unlabored, Respiratory pattern is regular, symmetrical, Breath sounds are clear bilaterally. GI: Abdomen is round non-distended, Bowel sounds present X 4 quads. Abd is soft and non tender X 4 quads. Reports diarrhea, nausea, vomiting. : No signs and/or symptoms were reported regarding the genitourinary system. EENT: No signs and/or symptoms were reported regarding the EENT system. Derm: Skin is pink, warm \T\ dry. Musculoskeletal: Range of motion: intact in all extremities. 16:19 Reassessment: No changes from previously documented assessment. Patient and/or family mb9 updated on plan of care and expected duration. Pain level reassessed. Patient is alert, oriented x 3, equal unlabored respirations, skin warm/dry/pink. 18:03 Reassessment: No changes from previously documented assessment. Patient and/or family mb9 updated on plan of care and expected duration. Pain level reassessed. Patient is alert, oriented x 3, equal unlabored respirations, skin warm/dry/pink. 21:20 Reassessment: Patient and/or family updated on plan of care and expected duration. Pain tm6 level reassessed. Vital Signs: 12:22 BP 136 / 79; Pulse 109; Resp 20; Temp 97.8; Pulse Ox 99% ; Weight 99.79 kg; Height 5 ll1 ft. 10 in. ; Pain 0/10; 15:07 BP 131 / 81; Pulse 103; Resp 16; Pulse Ox 100% on R/A; mb9 17:00 BP 164 / 97; Pulse 98; Resp 18; Pulse Ox 100% ; mb9 18:10 BP 163 / 97; Pulse 112; Resp 16; Pulse Ox 100% on R/A; mb9 21:20 BP 182 / 111; Pulse 109; Resp 21; Temp 97.8(TE); Pulse Ox 99% on R/A; tm6 12:22 Body Mass Index 31.57 (99.79 kg, 177.8 cm) ll1 12:22 Pain Scale: Adult ll1 ED Course: 12:07 Patient arrived in ED. mr 12:08 EFFIE HERNANDEZ is Private Physician. mr 12:17 Arm band placed on. ll1 12:19 Sravan Kelly MD is Attending Physician. vivi 12:23 Triage completed. ll1 12:58 Initial lab(s) drawn, by tn, sent to lab. Inserted saline lock: 20 gauge in left ph antecubital area, using aseptic technique. Blood collected. 12:59 Lipase Sent. ph 12:59 Basic Metabolic Panel Sent. ph 12:59 CBC with Diff Sent. ph 12:59 LFT's Sent. ph 13:00 Magnesium Sent. ph 13:00 NT PRO-BNP Sent. ph 13:00 PT-INR Sent. ph 13:00 Troponin HS Sent. ph 13:27 XRAY Chest (1 view) In Process Unspecified. EDMS 14:53 Fernanda Dixon, DELON is Primary Nurse. mb9 15:04 No provider procedures requiring assistance completed. mb9 15:07 Placed in gown. Bed in low position. Call light in reach. Side rails up X 1. Provided mb9 Education on: press call light if needing anything. Client placed on continuous cardiac and pulse oximetry monitoring. NIBP monitoring applied. supervisor weaving on. Door closed. Noise minimized. Warm blanket given. 15:07 EKG done, by ED staff, reviewed by Sravan Kelly MD. mb9 16:29 Ronen Davenport MD is Hospitalizing Provider. vivi 17:14 CT Chest Abdomen Pelvis W/O Contrast In Process Unspecified. EDMS 17:23 Blood Culture Adult (2) Sent. iw 18:49 Patient admitted, IV remains in place. mb9 Administered Medications: 12:59 Drug: Ondansetron IVP 4 mg IVP once; over 2 minutes Route: IVP; Site: left antecubital; ph 14:53 Follow up: Response: No adverse reaction mb9 15:05 Drug: NS 0.9% IV 1000 ml IV at 1 bolus Per protocol; 1000 mL bolus Route: IV; Rate: 1 mb9 bolus; Site: left antecubital; 17:44 Follow up: Response: No adverse reaction; IV Status: Completed infusion mb9 15:05 Drug: Ondansetron IVP 4 mg IVP once; over 2 minutes Route: IVP; Site: left antecubital; mb9 17:44 Follow up: Response: No adverse reaction mb9 15:05 Drug: NS 0.9% IV 1000 ml IV at 1 bolus Per protocol; 1000 mL bolus Route: IV; Rate: 1 mb9 bolus; Site: left antecubital; 17:43 Follow up: Response: No adverse reaction; IV Status: Completed infusion mb9 17:22 Drug: Insulin Glargine Sub-Q 30 units Sub-Q once {Co-Signature: ryan (Fernanda Dixon RN).} Route: Sub-Q; Site: left upper arm; 17:44 Follow up: Response: No adverse reaction mb9 17:23 Drug: Insulin Regular Human IVP 8 units IVP once {Co-Signature: geo9 (Fernanda Dixon RN).} Route: IVP; Site: left antecubital; 17:43 Follow up: Response: No adverse reaction mb9 17:23 Drug: Famotidine IVP 20 mg IVP once; dilute with 10 mL 0.9% NaCl; give over 2 minutes iw Route: IVP; Site: left antecubital; 17:43 Follow up: Response: No adverse reaction mb9 17:35 Drug: Rocephin IV 1 grams IV at per protocol once; Given slow IV push per pharmacy mb9 instructions Route: IV; Rate: per protocol; Site: left antecubital; 18:04 Follow up: Response: No adverse reaction; IV Status: Completed infusion mb9 17:43 Drug: NS 0.9% IV 1000 ml IV at 1 bolus Per protocol; 1000 mL bolus Route: IV; Rate: 1 mb9 bolus; Site: left antecubital; 18:33 Follow up: Response: No adverse reaction; IV Status: Completed infusion mb9 17:43 Drug: Promethazine IVP 12.5 mg IVP once Route: IVP; Site: left antecubital; mb9 18:03 Follow up: Response: No adverse reaction mb9 18:10 Drug: metroNIDAZOLE IVPB 500 mg 100 ml IVPB at 200 ml/hr once over 30 mins Volume: 100 mb9 ml; Route: IVPB; Rate: 200 ml/hr; Infused Over: 30 mins; Site: left antecubital; 18:33 Follow up: Response: No adverse reaction; IV Status: Completed infusion mb9 18:33 Drug: Ciprofloxacin IVPB 400 mg 200 ml IVPB once over 60 mins Volume: 200 ml; Route: mb9 IVPB; Infused Over: 60 mins; Site: left antecubital; Medication: 15:07 VIS not applicable for this client. 9 Outcome: 16:30 Decision to Hospitalize by Provider. vivi 18:49 Admitted to Med/surg mb9 18:49 Condition: stable 18:49 Instructed on the need for admit, Demonstrated understanding of instructions, follow-up care, 21:20 Patient left the ED. tm6 Signatures: Dispatcher [employer] EDMS Sravan Kelly MD MD cha Rivera, Mary, Reg Reg mr Renita Cam, RN DEOLN Denisse Gold RN RN ph Lewis, Lynsay, RN RN 1 Fernanda Dixon RN RN mb9 Esdras Wallace RN RN 6 Fernanda Dixon RN mb9
[2024-02-28] MEDS ORDERED: INSULIN GLARGINE 100 UNIT/ML SQ ONE (17:00)
[2024-02-28] MEDS ORDERED: INSULIN REGULAR (HUMAN) 100 UNIT/ML ONE (17:01)
[2024-02-28] MEDS ORDERED: FAMOTIDINE 20 MG/2 ML VIAL IV ONE (17:01)
[2024-02-28] MEDS ORDERED: CEFTRIAXONE 1000 MG/VIAL ONE (17:25)
[2024-02-28] MEDS ORDERED: PROMETHAZINE INJ 25 MG/ML AMP ONE (17:26)
--- NOTE | 2024-02-28 17:33 | RAD REPORT ---
EXAM DESCRIPTION: CTChest Abd Pelvis Wo Con - 02/28/2024 5:12 pm CLINICAL HISTORY: Abdominal distention;Chest pain COMPARISON: Chest Abd Pelvis Wo Con dated 06/19/2023 TECHNIQUE: CT of the chest, abdomen, and pelvis was performed. All CT scans are performed using dose optimization technique as appropriate and may include automated exposure control or mA/KV adjustment according to patient size. FINDINGS: Thorax: Chest Wall: No abnormal mass Lungs: No acute abnormality. Pleura: No effusions or pneumothorax. Radha/Mediastinum: No lymphadenopathy. Diffuse esophageal wall thickening which is mild at the proxima l and midportion but moderate at the distal aspect. Aorta/Pulmonary Arteries: Unremarkable Heart: Normal size. Abdomen/Pelvis: Liver: No acute abnormality or suspicious lesions. Biliary: No biliary ductal dilatation. Stomach: No significant focal abnormality. Duodenum: No significant focal abnormality. Pancreas: No significant abnormality. Spleen: No significant abnormality. Adrenal: No suspicious lesions. Kidney/ureter: No hydronephrosis. No renal calculi. Retroperitoneum: No retroperitoneal adenopathy. Vascular: No aneurysm. Bowel: Mild diffuse colonic wall thickening. No bowel obstruction.. Normal appendix. Peritoneum: No ascites or free air. Fat containing inguinal hernias. Bladder: Grossly unremarkable. Reproductive: No adnexal masses. Bones: No acute fracture. Other: n/a IMPRESSION: No definite acute findings within the chest, abdomen, or pelvis. Esophageal wall thicken ing which is been seen on prior exams and is suggestive of esophagitis. Possible mild pancolitis. No bowel obstruction.
[2024-02-28] MEDS ORDERED: METRONIDAZOLE 500mg IVPB 500 MG/100 ML BAG IV ONE (18:05)
[2024-02-28] MEDS ORDERED: CIPROFLOXACIN 400mg IV 400 MG/200 ML BAG IV ONE (18:05)
--- NOTE | 2024-02-28 19:30 | P.HP ---
Certification for Inpatient Patient admitted to: Inpatient With expected LOS: >2 Midnights <Lynette Tang - Last Filed: 02/28/24 19:24> Patient History Date of Service: 02/28/24 Primary Care Provider: Mar -> Sridhar Reason for admission: Sepsis, pancolitis, SEGUNDO, DM History of Present Illness: Mr. Chiang is a 53-year-old with a past medical history of diabetes, hypertension, obesity, and neuropathy. He denies smoking but does admit to alcohol. For about the first 24 years of his diabetes diagnosis he was on oral medications. Last year he moved to Ozempic and Rexulti type medications with some long-acting injected insulin. He apparently changed doses about 2 weeks ago of Rexulti. He has had significant nausea and vomiting since Sunday of this week approximately 48 hours ago. He presented to the emergency department with fatigue, malaise, inability to hold down fluids. He arrived to the emergency department afebrile, slightly tachycardic at 112, with a blood pressure of 163/77. He weighs 99.7 kg. On laboratory evaluation, his white count is quite high at 21.4, bands of 5, lactate of 2.5, H&H 15.5 and 46.3, blood sugar 352. His other electrolytes are notable for pseudohyponatremia 131, potassium 3.6, sodium 91, bicarb 28, BUN of 47 with a creatinine of 2.88 with GFR 25. His last visit to the emergency department 08/12/2023 he had a BUN of 16 and a creatinine of 1.63 GFR 50. On imaging his chest x-ray is clear. CT of chest abdomen and pelvis performed impression dictated by Dr. Chet Ya reads "no definite acute findings within the chest, abdomen, or pelvis. Esophageal wall thickening which's been seen on prior exams and is suggestive of esophagitis. Possible mild pancolitis. No bowel obstruction." We will admit Mr. Dann Chiang for further examination and treatment. Home medications list reviewed: Yes - Past Medical/Surgical History Diabetic: Yes -: IDDM -: HTN -: Anxiety disorder -: Left foot surgery-w/rods placed Psychosocial/ Personal History: Has been diabetic x 24 years. Last year changed from orals to insulin. - Family History Father -: Stroke Mother -: Hypertension, Diabetes - Social History Smoking Status: Unknown if ever smoked Alcohol use: Yes CD- Drugs: No Caffeine use: Yes Place of Residence: Home <Lynette Tang - Last Filed: 02/28/24 19:24> Date of Service: 02/28/24 <Juan Adamson Latha - Last Filed: 02/28/24 22:27> Allergies No Known Allergies Allergy (Verified 12/10/22 21:28) Home Medications: Carvedilol [Coreg] 12.5 mg PO BID 12/10/22 Gabapentin [Neurontin*] 100 mg PO BID 12/10/22 Metformin ER [Glucophage ER*] 500 mg PO BID 12/10/22 Semaglutide [Ozempic] 0.5 mg SQ MO 12/10/22 diazePAM [Diazepam] 10 mg PO BEDTIME PRN 12/10/22 Cetirizine HCl 10 mg PO DAILY 06/19/23 Glimepiride [Amaryl] 4 mg PO DAILY 06/19/23 Insulin Glargine,Hum.rec.anlog [Lantus] 20 unit SQ BEDTIME PRN 06/19/23 Ciprofloxacin HCl 250 mg PO BID 10 Days #20 tab 06/22/23 Ondansetron [Zofran (Odt)*] 4 mg PO Q8H PRN 7 Days #20 tab 06/22/23 Pantoprazole Sodium 40 mg PO DAILY #30 06/22/23 metroNIDAZOLE [Metronidazole] 500 mg PO Q8H 10 Days #30 tab 06/22/23 Review of Systems 10-point ROS is otherwise unremarkable General: Malaise Gastrointestinal: Nausea, Vomiting, As per HPI <Lynette Tang - Last Filed: 02/28/24 19:24> Physical Examination - Physical Exam General: Alert, Oriented x3, Obese HEENT: Atraumatic Neck: Supple Respiratory: Clear to auscultation bilaterally, Normal air movement Cardiovascular: Normal pulses, Regular rate/rhythm, Other (tachycardia) Capillary refill: <2 Seconds Gastrointestinal: Hypoactive Musculoskeletal: No swelling, No contractures, Other (repair to left charcot foot) Integumentary: No rashes, Other (hyperemic) Neurological: Normal speech, Normal tone Lymphatics: No axilla or inguinal lymphadenopathy External genitalia: Deferred Rectal: Deferred - Studies Laboratory Data (last 24 hrs) 02/28/24 02/28/24 02/28/24 13:05 13:05 13:05 WBC 21.40 H Hgb 15.5 Hct 46.3 Plt Count 366 PT 11.4 INR 1.04 Sodium 131 L Potassium 3.6 BUN 47 H Creatinine 2.88 H Glucose 352 H Magnesium 2.1 Total Bilirubin 0.7 AST 13 L ALT 20 Alkaline Phosphatase 69 Lipase 29 <Lynette Tang - Last Filed: 02/28/24 19:24> - Studies Laboratory Data (last 24 hrs) 02/28/24 02/28/24 02/28/24 13:05 13:05 13:05 WBC 21.40 H Hgb 15.5 Hct 46.3 Plt Count 366 PT 11.4 INR 1.04 Sodium 131 L Potassium 3.6 BUN 47 H Creatinine 2.88 H Glucose 352 H Magnesium 2.1 Total Bilirubin 0.7 AST 13 L ALT 20 Alkaline Phosphatase 69 Lipase 29 <Juan Adamson - Last Filed: 02/28/24 22:27> Assessment and Plan - Plan Sepsis 3L NS given in ED Initial Lactate 2.5, repeat q 4h until declining Cipro 400mg IVPB q12h Flagyl 500mg IVPB q8h monitor and record VS Follow cultures 0.9NS at 100ml/hr Esophagitis Carafate Esophagram Phenergan NM q6h prn Pancolitis Antibiotics as above Bowel rest follow cultures hold Rexulti and Ozempic CKD with SEGUNDO pseudohyponatremia IVF at 100ml/hr monitor and replete electrolytes IDDM NPO until am and advance to clear liquids FSBS q6h and then ac/hs Semglee 15u in am Moderate SSI Neuropathy Gabapentin 300mg po BID prn HTN Carvedilol 25mg po daily DVT/GI prophylaxis Heparin SC, SCDs/Protonix Code Status: Full Plan to discharge in: 72 Hours - Advance Directives Does patient have a Living Will: No Does patient have a Durable POA for Healthcare: No - Code Status/Comfort Care Code Status Assessed: Yes (full) <Lynette Tang - Last Filed: 02/28/24 19:24> - Plan Pt seen and examined. i agree withe the not by the STRUCTURAL STEEL FITTER. Pt is a 53yo male with past medical history of diabetes, hypertension, obesity, and neuropathy who presents with nausea, vomiting annd diarrhea. The symptoms started 48 hours after pt increased the dose of rexulti. On admission lab studies show wbc 21.4, Hgb 15, Na 131, K 3.[address] abd is concerning for pancolitis. At bedside, pt is in NAD. A/P: Pancolitis: Will continue ivf, antiemetic, cipro and flagyl. Hold rexulti and ozempic. It could be due to ozempic and rexulti. Will r/o C diff. SEGUNDO on CKD: Continue IVF, avoid nephrotoxins and monitor rrnal function. Will continue home med for ther chronic medical problems. <Juan Adamson - Last Filed: 02/28/24 22:27>
[2024-02-28] MEDS ORDERED: D50W 25 GM/50 ML SYRINGE IV PRN (19:55)
[2024-02-28] MEDS ORDERED: SODIUM CHLORIDE 0.9% 10ML INJ IV PRN (19:55)
[2024-02-28] MEDS ORDERED: GLUCAGON 1 MG/VIAL IM PRN (19:55)
[2024-02-28] MEDS ORDERED: D10W 125 ML IV PRN (20:18)
[2024-02-28] MEDS: INSULIN REGULAR (HUMAN) 100 UNIT/ML SQ SCH (21:00)
[2024-02-28] MEDS ORDERED: PROMETHAZINE 25 MG/SUPP PR ONE (21:14)
[2024-02-28] MEDS: PROMETHAZINE 25 MG/SUPP PR PRN (21:19)
[2024-02-28] MEDS: NA CHLORIDE 0.9% 1,000 ML IV SCH (22:07)
[2024-02-28] MEDS: PANTOPRAZOLE 40 MG INJ IVP SCH (22:08)
[2024-02-28] MEDS: SUCRALFATE 1 GM TABLET PO SCH (22:08)
[2024-02-28] MEDS: GABAPENTIN 100 MG CAP PO SCH (22:08)
[2024-02-28 23:13] VITALS: BMI 31.5
[2024-02-28 23:45] LABS: Specific Gravity 1.013 (1.005-1.030); Sqamous Epithelial None Seen /HPF (None Seen); Urine Bacteria None Seen /HPF (<20); Urine Bilirubin NEGATIVE (Negative); Urine Blood Trace (Negative); Urine Clarity Clear (Clear); Urine Color Colorless (Yellow); Urine Culture Reflex Order NOT NEEDED; Urine Glucose 4+ (Over) (Negative); Urine Ketones 1+ (Negative); Urine Microscopic Reflex YN ORDER UMIC; Urine Nitrite NEGATIVE (Negative); Urine Protein 1+ (Negative); Urine RBC <5 /HPF (None Seen); Urine Urobilinogen Normal (Normal); Urine WBC <5 /HPF (<5); Urine pH 5.5 (5.0-7.0)
[2024-02-29] MEDS: HEPARIN 5000 UNIT/ML 1 ML VIAL SQ SCH (00:11)
[2024-02-29] MEDS: LABETALOL 20 MG/4ML SYRINGE IV PRN (00:11)
[2024-02-29] MEDS: METRONIDAZOLE 500mg IVPB 500 MG/100 ML BAG IV SCH (00:11)
[2024-02-29 02:43] VITALS: O2SAT 99
[2024-02-29 03:45] LABS: PT Prothrombin Time 11.7 SECONDS (9.5-12.5); PTT, Activated Partial Thromb 29.6 SECONDS (24.3-36.9); Protime INR 1.07
[2024-02-29 03:47] LABS: Absolute Lymphocytes (CBC) 1.3 K/uL (0.7-4.9); Absolute Monocytes 0.7 K/uL (0.1-1.3); Absolute Neutrophil 10.2 K/uL (1.8-8.0); Basophils % 0.3 % (0-1.3); Hematocrit 52.2 % (39.6-49.0); Hemoglobin 17.5 g/dL (13.6-17.9); Lymphocytes % 10.5 % (15.3-44.8); MCH 31.2 pg (27.0-35.0); MCHC 33.6 g/dL (32.0-36.0); MCV 92.8 fL (80-100); MPV 8.7 fL (7.6-11.3); Monocytes % 5.7 % (3.3-12.3); Neutrophils % 83.5 % (41.7-73.7); Platelets 167 thou/uL (152-406); RBC Red Blood Cell Count 5.63 M/uL (4.33-5.43); Red Cell Distribution Width 13.2 % (12.1-15.2)
[2024-02-29 04:14] LABS: Albumin 3.1 g/dL (3.4-5.0); Albumin/Globulin Ratio 0.9 (1.1-1.8); Anion Gap 10.9 mEq/L (5.0-15.0); Bilirubin Total 0.5 mg/dL (0.2-1.0); Globulin 3.5 g/dL (2.3-3.5); Magnesium 1.9 mg/dL (1.6-2.4); Potassium 3.9 mEq/L (3.5-5.1); Protein, Total 6.6 g/dL (6.4-8.2)
[2024-02-29] MEDS: INSULIN LISPRO 100 UNIT/ML SQ SCH (07:30)
[2024-02-29] MEDS: carvediloL 25 MG TAB PO SCH (08:00)
[2024-02-29] MEDS: CIPROFLOXACIN 400mg IV 400 MG/200 ML BAG IV SCH (09:40)
[2024-02-29] MEDS: INSULIN GLARGINE 100 UNIT/ML SQ SCH ×2 (09:47→20:53)
--- NOTE | 2024-02-29 11:50 | P.PN ---
Subjective Date of Service: 02/29/24 Primary Care Provider: Mar Rocha> Sridhar Chief Complaint: Sepsis, pancolitis, SEGUNDO, DM Subjective: Improving <Lynette Tang - Last Filed: 02/29/24 11:48> Date of Service: 02/29/24 <AyshaeliasDukerick Azul - Last Filed: 02/29/24 17:03> Review of Systems 10-point ROS is otherwise unremarkable Gastrointestinal: As per HPI <Lynette Tang - Last Filed: 02/29/24 11:48> Physical Examination - Vital Signs Temperature: 98.4 F Blood Pressure: 164/82 Pulse: 94 Respirations: 18 Pulse Ox (%): 97 - Physical Exam General: Alert, In no apparent distress, Oriented x3 HEENT: Atraumatic, Normocephalic Neck: JVD not distended Respiratory: Normal air movement Cardiovascular: Normal pulses, Regular rate/rhythm Capillary refill: <2 Seconds Gastrointestinal: Normal bowel sounds, Non-distended, Tenderness Musculoskeletal: No clubbing, No swelling Integumentary: No rashes Neurological: Normal speech, Normal tone Lymphatics: No axilla or inguinal lymphadenopathy External genitalia: Deferred Rectal: Deferred - Studies Laboratory Data (last 24 hrs) 02/28/24 02/28/24 02/28/24 13:05 13:05 13:05 WBC 21.40 H Hgb 15.5 Hct 46.3 Plt Count 366 PT 11.4 INR 1.04 Sodium 131 L Potassium 3.6 BUN 47 H Creatinine 2.88 H Glucose 352 H Magnesium 2.1 Total Bilirubin 0.7 AST 13 L ALT 20 Alkaline Phosphatase 69 Lipase 29 <Lynette Tang - Last Filed: 02/29/24 11:48> Assessment And Plan - Plan Sepsis 3L NS given in ED Initial Lactate 2.5, repeat q 4h until declining repeat 2.0 Cipro 400mg IVPB q12h Flagyl 500mg IVPB q8h monitor and record VS Follow cultures 0.9NS at 100ml/hr Esophagitis Carafate Esophagram Phenergan ID q6h prn Pancolitis Antibiotics as above Bowel rest follow cultures hold Rexulti and Ozempic CKD with SEGUNDO pseudohyponatremia IVF at 100ml/hr monitor and replete electrolytes IDDM NPO until am and advance to clear liquids FSBS q6h and then ac/hs Semglee 15u in am Moderate SSI Neuropathy Gabapentin 300mg po BID prn HTN Carvedilol 25mg po daily DVT/GI prophylaxis Heparin SC, SCDs/Protonix Code Status: Full <Lynette Tang Ventura - Last Filed: 02/29/24 11:48> - Plan Pt seen and examined. I agree with the note by the AUTOMOBILE BODY REPAIR CHIEF. Pt is feeling better. His symptoms are likely due to rexulti. Will optimize insulin regimen for glucose control. There is no GI educational manager today. <Juan Adamson - Last Filed: 02/29/24 17:03>
--- NOTE | 2024-02-29 12:51 | RAD REPORT ---
EXAM DESCRIPTION: RAD - Esophagram Only - 02/29/2024 12:40 pm CLINICAL HISTORY: esophagitis COMPARISON: Abdomen Pelvis W Contrast dated 08/12/2023; Chest Abd Pelvis Wo Con dated 02/28/2024; Ab domen Pelvis Wo Contrast dated 11/23/2019 FINDINGS: An esophagram was performed and shows normal bolus formation and normal initiation of swal lowing. Fold thickening present at the mid and distal esophagus. No stricture identified. No mass emeka reciated. Nonspecific tertiary contractions. Poor clearance of esophageal contents. Total fluoroscopy time: 1 minutes 12 second Number of images acquired: 4 series IMPRESSION: Fold thickening in the mid and distal esophagus consistent with esophagitis. No strictur e or mass appreciated. Consider endoscopy for further evaluation. .
--- NOTE | 2024-02-29 13:38 | EKG ---
Test Date: 2024-02-28 Test Time: 14:58:49 Manager Drug Safety: ZORA MEASUREMENT RESULTS: Intervals: Rate: 106 VT: 168 QRSD: 74 QT: 322 QTc: 427 Bowie: P: 55 VT: 168 QRS: 34 T: 59 INTERPRETIVE STATEMENTS: Sinus tachycardia Possible Left atrial enlargement Borderline ECG Compared to ECG 06/19/2023 12:07:08 No significant changes Electronically Signed On 02-29-24 13:37:20 CDT by Darrell Marin
[2024-02-29] MEDS ORDERED: GLUCAGON 1 MG/VIAL IM PRN (17:02)
[2024-02-29] MEDS ORDERED: D10W 250 ML BAG IV PRN (17:02)
[2024-03-01 03:29] LABS: Absolute Basophils 0.1 K/uL (0-0.5); Absolute Eosinophils 0.1 K/uL (0-0.5); Absolute Lymphocytes (CBC) 2.7 K/uL (0.7-4.9); Absolute Monocytes 0.9 K/uL (0.1-1.3); Absolute Neutrophil 5.8 K/uL (1.8-8.0); Basophils % 0.9 % (0-1.3); Eosinophils % 1.4 % (0-4.4); Hematocrit 37.8 % (39.6-49.0); Hemoglobin 13.5 g/dL (13.6-17.9); Lymphocytes % 28.3 % (15.3-44.8); MCHC 35.8 g/dL (32.0-36.0); MCV 92.2 fL (80-100); MPV 7.7 fL (7.6-11.3); Monocytes % 9.1 % (3.3-12.3); Neutrophils % 60.3 % (41.7-73.7); Platelets 273 thou/uL (152-406); Red Cell Distribution Width 12.6 % (12.1-15.2)
[2024-03-01 03:42] LABS: Anion Gap 8.6 mEq/L (5.0-15.0); Potassium 3.6 mEq/L (3.5-5.1)
[2024-03-01] MEDS ORDERED: INSULIN LISPRO 100 UNIT/ML SQ SCH (08:00)
--- NOTE | 2024-03-01 09:14 | P.DS ---
Admission Date: 02/28/24 Discharge Date: 03/01/24 Primary Care Provider: Mar Waller Reason for Admission: Sepsis, pancolitis, SEGUNDO, DM Brief History of Present Illness: Mr. Chiang is a 53-year-old with a past medical history of diabetes, hypertension, obesity, and neuropathy. He denies smoking but does admit to alcohol. For about the first 24 years of his diabetes diagnosis he was on oral medications. Last year he moved to Ozempic and Rexulti type medications with some long-acting injected insulin. He apparently changed doses about 2 weeks ago of Rexulti. He has had significant nausea and vomiting since Sunday of this week approximately 48 hours ago. He presented to the emergency department with fatigue, malaise, inability to hold down fluids. He arrived to the emergency department afebrile, slightly tachycardic at 112, with a blood pressur e of 163/77. He weighs 99.7 kg. On laboratory evaluation, his white count is quite high at 21.4, bands of 5, lactate of 2.5, H&H 15.5 and 46.3, blood sugar 352. His other electrolytes are notable for pseudohyponatremia 131, potassium 3.6, sodium 91, bicarb 28, BUN of 47 with a creatinine of 2.88 with GFR 25. His last visit to the emergency department 08/12/2023 he had a BUN of 16 and a creatinine of 1.63 GFR 50. On imaging his chest x-ray is clear. CT of chest abdomen and pelvis performed impression dictated by Dr. Chet Ya reads "no definite acute findings within the chest, abdomen, or pelvis. Esophageal wall thickening which's been seen on prior exams and is suggestive of esophagitis. Possible mild pancolitis. No bowel obstruction." We will admit Mr. Dann Chiang for further examination and treatment. Hospital Course: Mr. Chiang is feeling significantly better. Blood pressure and heart rate more within normal target. He is tolerating p.o. Laboratory values normalizing. No further nausea or vomiting. He would like to go home today. He voices understanding of probable cause of symptoms and how to avoid them. He will be discharged on Cipro and Flagyl for the mild pancolitis. Protonix and Carafate will be given for esophagitis . Mr. Chiang willl maintain Tresiba and lispro but will discontinue Semaglutide. Will follow up with Dr. Waller next week. Esophagram and CT show Esophagitis - must have EGD and Colonoscopy in the next 8-12 weeks <Lynette Tang - Last Filed: 03/01/24 09:08> Admission Date: 02/28/24 Discharge Date: 03/01/24 Hospital Course: Pt hien nd examined. I agree withe the note by the PLEAT PATTERNMAKER. Pt was discharged with lantus 15u qhs, lispro 5u with meal, Protnix, carafate, Cipro and flagyl. Pt was advised to follow up with GI in 8 - 12 weeks for EGD. Ok to discharge pt. <Juan Adamson - Last Filed: 03/01/24 12:13> Disposition: ROUTINE DISCHARGE Discharge Condition: GOOD Vital Signs/Physical Exam: Temp Pulse Resp BP Pulse Ox 97.9 F 76 18 189/103 H 97 03/01/24 08:00 03/01/24 08:00 03/01/24 08:00 03/01/24 08:00 03/01/24 08:00 General: Alert, In no apparent distress, Oriented x3 HEENT: Atraumatic, Normocephalic Neck: 2+ carotid pulse no bruit Respiratory: Clear to auscultation bilaterally, Normal air movement Cardiovascular: Normal pulses, Regular rate/rhythm Capillary refill: >2 Seconds Gastrointestinal: Normal bowel sounds, No tenderness Musculoskeletal: No clubbing Integumentary: No rashes Neurological: Normal speech, Normal tone Lymphatics: No axilla or inguinal lymphadenopathy External genitalia: Deferred Rectal: Deferred Laboratory Data at Discharge: WBC 9.60 thou/uL (4.3-10.9) 03/01/24 03:05 Hgb 13.5 g/dL (13.6-17.9) L D 03/01/24 03:05 Hct 37.8 % (39.6-49.0) L 03/01/24 03:05 Plt Count 273 thou/uL (152-406) D 03/01/24 03:05 PT 11.7 SECONDS (9.5-12.5) 02/29/24 03:11 INR 1.07 02/29/24 03:11 APTT 29.6 SECONDS (24.3-36.9) 02/29/24 03:11 Sodium 139 mEq/L (136-145) 03/01/24 03:05 Potassium 3.6 mEq/L (3.5-5.1) 03/01/24 03:05 BUN 18 mg/dL (7-18) 03/01/24 03:05 Creatinine 1.61 mg/dL (0.70-1.30) H 03/01/24 03:05 Glucose 140 mg/dL (74-106) H 03/01/24 03:05 Magnesium 1.9 mg/dL (1.6-2.4) 02/29/24 03:11 Total Bilirubin 0.5 mg/dL (0.2-1.0) 02/29/24 03:11 AST 10 U/L (15-37) L 02/29/24 03:11 ALT 14 U/L (16-61) L 02/29/24 03:11 Alkaline Phosphatase 51 U/L (45-117) D 02/29/24 03:11 Triglycerides 90 mg/dL (<150) 02/29/24 03:11 Cholesterol 125 mg/dL (<200) 02/29/24 03:11 HDL Cholesterol 52 mg/dL (40-60) 02/29/24 03:11 Cholesterol/HDL Ratio 2.40 02/29/24 03:11 Lipase 29 U/L (13-75) 02/28/24 13:05 <Tang,Lynette Ventura - Last Filed: 03/01/24 09:08> Vital Signs/Physical Exam: Temp Pulse Resp BP Pulse Ox 97.9 F 76 18 189/103 H 97 03/01/24 08:00 03/01/24 08:00 03/01/24 08:00 03/01/24 08:00 03/01/24 08:00 Laboratory Data at Discharge: WBC 9.60 thou/uL (4.3-10.9) 03/01/24 03:05 Hgb 13.5 g/dL (13.6-17.9) L D 03/01/24 03:05 Hct 37.8 % (39.6-49.0) L 03/01/24 03:05 Plt Count 273 thou/uL (152-406) D 03/01/24 03:05 PT 11.7 SECONDS (9.5-12.5) 02/29/24 03:11 INR 1.07 02/29/24 03:11 APTT 29.6 SECONDS (24.3-36.9) 02/29/24 03:11 Sodium 139 mEq/L (136-145) 03/01/24 03:05 Potassium 3.6 mEq/L (3.5-5.1) 03/01/24 03:05 BUN 18 mg/dL (7-18) 03/01/24 03:05 Creatinine 1.61 mg/dL (0.70-1.30) H 03/01/24 03:05 Glucose 140 mg/dL (74-106) H 03/01/24 03:05 Magnesium 1.9 mg/dL (1.6-2.4) 02/29/24 03:11 Total Bilirubin 0.5 mg/dL (0.2-1.0) 02/29/24 03:11 AST 10 U/L (15-37) L 02/29/24 03:11 ALT 14 U/L (16-61) L 02/29/24 03:11 Alkaline Phosphatase 51 U/L (45-117) D 02/29/24 03:11 Triglycerides 90 mg/dL (<150) 02/29/24 03:11 Cholesterol 125 mg/dL (<200) 02/29/24 03:11 HDL Cholesterol 52 mg/dL (40-60) 02/29/24 03:11 Cholesterol/HDL Ratio 2.40 02/29/24 03:11 Lipase 29 U/L (13-75) 02/28/24 13:05 <Juan Adamson - Last Filed: 03/01/24 12:13> Activity: Ad margaret <Tang,Lynette Ventura - Last Filed: 03/01/24 09:08> <Juan Adamson - Last Filed: 03/01/24 12:13> Home Medications: Amlodipine [Norvasc*] 10 mg PO DAILY 02/28/24 Buspirone HCl [Buspar*] 5 mg PO BID 02/28/24 Escitalopram [Lexapro*] 40 mg PO DAILY 02/28/24 Eszopiclone [Lunesta] 2 mg PO BEDTIME PRN 02/28/24 Insulin Degludec [Tresiba Flextouch U-100] 15 units SQ DAILY 02/28/24 Insulin Lispro [Insulin Lispro Kwikpen U-100] 3 units SQ AC PRN 02/28/24 Pregabalin [Lyrica] 200 mg PO DAILY 02/28/24 Testosterone Cypionate [Testone Cik] 1 ml IM Q7D 02/28/24 Tramadol HCl [Ultram] 50 mg PO QID PRN 02/28/24 clonazePAM [Clonazepam] 1 mg PO DAILY PRN 02/28/24 Ciprofloxacin HCl [Cipro 500 MG Tablet] 500 mg PO BID #20 tab 03/01/24 Gabapentin [Neurontin*] 300 mg PO BID PRN #60 cap 03/01/24 Insulin Glargine,Hum.rec.anlog [Lantus] 15 unit SQ DAILY 30 Days #15 ml 03/01/24 Insulin Lispro [Humalog Tempo Pen U-100] 5 unit SQ TID 30 Days #15 ml 03/01/24 Pantoprazole Sodium [Protonix] 40 mg PO DAILY #60 tab 03/01/24 Promethazine Suppos [Phenergan -Suppos*] 25 mg TN Q6HP PRN #12 supp 03/01/24 Sucralfate [Carafate*] 1 gm PO ACHS #90 tab 03/01/24 carvediloL [Coreg*] 25 mg PO DAILY@0800 #60 tab 03/01/24 metroNIDAZOLE [Flagyl] 500 mg PO Q8H #30 tab 03/01/24 New Medications: Promethazine Suppos [Phenergan -Suppos*] 25 mg TN Q6HP PRN #12 supp PRN Reason: Nausea / Vomiting Sucralfate [Carafate*] 1 gm PO ACHS #90 tab Ciprofloxacin HCl [Cipro 500 MG Tablet] 500 mg PO BID #20 tab carvediloL [Coreg*] 25 mg PO DAILY@0800 #60 tab metroNIDAZOLE [Flagyl] 500 mg PO Q8H #30 tab Insulin Lispro [Humalog Tempo Pen U-100] 5 unit SQ TID 30 Days #15 ml Insulin Glargine,Hum.rec.anlog [Lantus] 15 unit SQ DAILY 30 Days #15 ml Gabapentin [Neurontin*] 300 mg PO BID PRN #60 cap PRN Reason: Pain Scale 5-7 (Moderate) Pantoprazole Sodium [Protonix] 40 mg PO DAILY #60 tab Physician Discharge Instructions: Okay to DC IV and DC home Follow-up with primary care provider in 1 week Please call the inpatient unit for any questions or concerns regarding hospital stay Return to the ER for worsening symptoms Mr. Chiang is feeling significantly better. Blood pressure and heart rate more within normal target. He is tolerating p.o. Laboratory values normalizing. No further nausea or vomiting. He would like to go home today. He voices understanding of probable cause of symptoms and how to avoid them. He will be discharged on Cipro and Flagyl for the mild pancolitis. Protonix and Carafate will be given for esophagitis . Mr. Chiang willl maintain Tresiba and lispro but will discontinue Semaglutide. Will follow up with Dr. Waller next week. Esophagram and CT show Esophagitis - must have EGD and Colonoscopy in the next 8-12 weeks Followup: Valeri Manuel DO, DO [Primary Care Provider] -
[2024-03-01] MEDS: POTASSIUM CL SA 10 MEQ TAB PO ONE (09:32)
[2024-03-01 13:39] VITALS: BP 166/89; TEMP 98.5
== END 2024-03-01 13:40 | disposition home or self-care (01) | DRG 872 ==
LOC: ER 12:05 → ERHOLD 19:05 → 2ND 20:01
PROVIDERS: ADMIT Hospitalist; ATTEND Hospitalist
DX: A41.9 Sepsis, unspecified organism (principal); N17.9 Acute kidney failure, unspecified; E86.0 Dehydration; I12.9 Hypertensive chronic kidney disease with stage 1 through stage 4 chronic kidney disease, or unspecified chronic kidney disease; N18.9 Chronic kidney disease, unspecified; E11.22 Type 2 diabetes mellitus with diabetic chronic kidney disease; E11.40 Type 2 diabetes mellitus with diabetic neuropathy, unspecified; K52.9 Noninfective gastroenteritis and colitis, unspecified; D72.829 Elevated white blood cell count, unspecified; Z79.4 Long term (current) use of insulin; Z79.84 Long term (current) use of oral hypoglycemic drugs; Z79.02 Long term (current) use of antithrombotics/antiplatelets; Z79.899 Other long term (current) drug therapy
CPT/HCPCS: 36415; 71045; 71250; 74176; 74220; 80048; 80053; 80061; 80076; 81001; 82947; 83605; 83690; 83735; 83880; 84443; 84484; 85025; 85610; 85730; 87040; 93005; 96361; 96365; 96367; 96372; 96375; 99285; C9113; J0696; J0744; J1644; J1815; J2405; J2550; J7030